=== PATIENT | male | born 1950 | race Caucasian/White ===

== ENCOUNTER 2017-10-31 10:07 | Inpatient (IN) | payer MEDICARE ==
[~2017-10-31] VITALS: Ht 172.7 cm; Wt 95.0 kg
[~2017-10-31 10:07] MED LIST: ANEXSIA 5-3251 EACH PO; GLYBURIDE PO; IRON PO; Lantus SQ; NOVOLOG MI100 UNITS/ SQ; WARFARIN SODIUM5 MG PO; Z FEOSOL PO; Z.0.AMLODIPINE BESY1 PO; Z.0.CLOPIDOGREL75 MG PO; Z.0.COUMADIN7.5 MG PO; Z.0.KLOR-CON 1010 ME PO; Z.0.LASIX80 MG PO; Z.0.LIPITOR40 MG PO; Z.0.METOPROLOL SUCC5 PO; Z.0.PROTONIX40 MG PO; Z.0.SEPTRA DS TABL1 PO; [UNRECOGNIZED DRUG - OTHER] PO; lantus SQ
--- OUTSIDE RECORDS SUMMARY | 2017-10-31 10:12 | XMS REPORT ---
Author Author [facility] Address Unknown Phone Unavailable Care Team Providers Care [employer] Operator Name Role Phone Akil RYDER Unavailable Unavailable Problems This patient has no known problems. Allergies, Adverse Reactions, Alerts This patient has no known allergies or adverse reactions. Medications This patient has no known medications. Results Test Description Test Time Test Comments Text Results Atomic Results Result Comments TAGGED WBC [facility] [address] [address] Patient Name: DMAEON FAYE MR #: [id number] : 1950 Age/Sex: 67/M Req #: [id number] Adm Physician: Ordered by: Akil RYDER DP Report #: [id number] Location: PR Room/Bed: Procedure: [id number] NM/TAGGED WBC Exam Date: 05/23/17 Exam Time: 0800 REPORT STATUS: Signed Labeled WBC Study Reason for exam: 67 F with IDDM and two poorly healing wounds at great toes. Evaluate for osteomyelitis. Comparison: None available Report: The patient's own white blood cells were labeled with Tc-99m HMPAO 22 mCi by a commercial radiopharmacy. Images of the feet were obtained at 3 hours post administration of the labeled white blood cells. Superficial focal areas of increased tracer activity are seen. One is at the plantar aspect at the base of the right great toe and the other is at the plantar aspect of the left great toe. No focal accumulation of tracer is seen in the adjacent bones or elsewhere within the feet. IMPRESSION:. No scan evidence of osteomyelitis in either foot. Superficial soft tissue wounds on the plantar aspect of the right and left great toes. Signed by: Dr. Raman Hare M.D. on 05/23/2017 8:59 PM Dictated By: RAMAN HARE MD 56 Transcribed By: PRECIOUS on 05/23/172058 COPY TO: Akil RYDER DPM
--- OUTSIDE RECORDS SUMMARY | 2017-10-31 10:12 | XMS REPORT | Clinical Summary ---
Author Author [facility] Organization [facility] Address Unknown Phone Unavailable Care Team Providers Care Glaze Maker Name Role Phone Dameon Purvis MD PCP Allergies Active Allergy Reactions Severity Noted Date Comments Vance Inhibitors Other (See Comments) 07/12/2017 "gets jittery/tremors." Patient takes lisinopril. Lorazepam Other (See Comments) 07/12/2017 "it makes him crazy" Benazepril Anaphylaxis High 07/12/2017 Promethazine Anxiety Low 07/12/2017 Sulfa (Sulfonamide Medium 05/24/2016 Drug interaction with Antibiotics) warfarin (increased bleeding) Current Medications Prescription Sig. Disp. Refills Start End Date Status Date atorvastatin (LIPITOR) 40 Take 40 mg by mouth Active MG tablet nightly. aspirin (ECOTRIN) 81 MG Take 81 mg by mouth Active enteric coated tablet nightly. omeprazole (PriLOSEC) 40 Take 40 mg by mouth Active MG capsule daily. potassium chloride Take 10 mEq by mouth 2 Active (K-DUR,KLOR-CON) 10 MEQ (two) times a day. CR tablet clopidogrel (PLAVIX) 75 Take 75 mg by mouth Active mg tablet daily. ferrous sulfate 325 (65 Take 325 mg by mouth 2 Active FE) MG tablet (two) times a day. isosorbide mononitrate Take 30 mg by mouth Active (IMDUR) 30 MG 24 hr daily. tablet nitroglycerin (NITROSTAT) Place 0.4 mg under the Active 0.4 MG SL tablet tongue every 5 (five) minutes as needed for chest pain. levothyroxine (SYNTHROID, Take 112.5 mcg by mouth Active LEVOXYL) 75 mcg tablet every morning. diazePAM (VALIUM) 5 MG Take by mouth nightly as Active tablet needed for anxiety. metoprolol succinate XL Take 25 mg by mouth Active (TOPROL-XL) 25 mg 24 hr daily. tablet digOXIN (LANOXIN) 125 mcg Take 125 mcg by mouth Active tablet daily. blood sugar diagnostic Use as directed 100 strip 2 09/28/19 Active strips strip test strips 18 metOLazone (ZAROXOLYN) Take 2.5 mg by mouth Active 2.5 MG tablet daily as needed (for edema and fluid retention). insulin GLARGINE (LANTUS) Inject 42 Units under the 12.6 mL 0 11/21/19 Active 100 unit/mL injection skin daily before 18 18 (vial) breakfast for 30 days. insulin lispro (HumaLOG) Inject 14 Units under the 10 mL 12 10/21/19 11/20/19 Active 100 unit/mL injection skin 3 (three) times a 18 18 day with meals for 30 days. insulin lispro (HumaLOG) Inject 0-7 Units under 10 mL 12 10/21/19 Active 100 unit/mL injection the skin 3 (three) times 18 18 a day with meals for 30 days. warfarin (COUMADIN) 5 MG Take 2 tablets (10 mg 30 tablet 11 10/21/19 Active tablet total) by mouth daily. 18 Take 1 tablet (5mg) by mouth daily for 30 days. lancets misc Use as directed 200 each 2 10/21/19 Active 18 pen needle, diabetic (BD Use as directed 100 each 10/21/19 Active ULTRA-FINE MICRO PEN 18 NEEDLE) 32 gauge x 1/4" needle liraglutide (VICTOZA) 0.6 Inject 0.1 mL (0.6 mg 3 mL 0 10/22/19 Active mg/0.1 mL (18 mg/3 mL) total) under the skin 18 18 pen injector daily with breakfast for 30 days. insulin GLARGINE (LANTUS Inject 42 Units under the 1260 Units 3 11/20/19 Active SOLOSTAR) 100 unit/mL skin nightly for 30 days. 18 18 injection (pen) insulin lispro (HumaLOG Inject 14 Units under the 15 mL 3 10/21/19 11/20/19 Active KwikPen Insulin) 100 skin 3 (three) times a 18 18 unit/mL injection pen day before meals for 30 days. furosemide (LASIX) 20 MG Take 60 mg by mouth 2 07/05/20 Discontin tablet (two) times a day. 17 ued insulin asp prt-insulin Inject 26 Units under the 03/07/20 Discontin ASPART (NovoLOG Mix skin every morning. 17 ued 70-30) 100 unit/mL (70-30) injection insulin asp prt-insulin Inject 32 Units under the 03/07/20 Discontin ASPART (NovoLOG Mix skin nightly. 17 ued 70-30) 100 unit/mL (70-30) injection lisinopril Take 5 mg by mouth daily. 07/05/20 Discontin (PRINIVIL,ZESTRIL) 5 MG 17 ued tablet metFORMIN (GLUCOPHAGE) Take 500 mg by mouth 2 06/30/20 Discontin 500 MG tablet (two) times a day with 17 ued meals. metoprolol succinate XL Take 25 mg by mouth 06/30/20 Discontin (TOPROL-XL) 25 MG 24 hr daily. 17 ued tablet warfarin (COUMADIN) 10 MG Take 7.5 mg by mouth 3 03/07/20 Discontin tablet (three) times a week. 17 ued Tuesday, Tuesday, & Tuesday warfarin (COUMADIN) 5 MG Take 5 mg by mouth 4 09/28/19 Discontin tablet (four) times a week. (on 18 ued Tuesday, Tuesday, & Tuesday) MORNINGs isosorbide mononitrate Take 1 tablet (30 mg 30 tablet 0 02/02/2010/18 (IMDUR) 30 MG 24 hr total) by mouth daily for 17 17 tablet 30 days. nitroglycerin (NITROSTAT) Place 1 tablet (0.4 mg 90 tablet 12 03/03/20 0.4 MG SL tablet total) under the tongue 17 17 every 5 (five) minutes as needed for chest pain for up to 30 days. insulin lispro (HumaLOG) Inject 36 Units under the 09/28/19 Discontin 100 unit/mL injection skin daily before 18 ued breakfast. insulin lispro (HumaLOG) Inject 24 Units under the 09/28/19 Discontin 100 unit/mL injection skin daily with dinner. 18 ued warfarin (COUMADIN) 5 MG Take 7.5 mg by mouth 3 09/28/19 Discontin tablet (three) times a week. (on 18 ued Tuesday, Tuesday, Tuesday) MORNINGs furosemide (LASIX) 20 mg Take 3 tablets (60 mg 90 tablet 0 06/12/20 06/30/20 Discontin tablet total) by mouth daily for 17 17 ued 30 days. liothyronine (CYTOMEL) 5 Take 5 mcg by mouth 2 09/28/19 Discontin MCG tablet (two) times a day. 18 ued metOLazone (ZAROXOLYN) 5 Take 5 mg by mouth daily 07/12/20 Discontin MG tablet as needed (fluid 17 ued overload). metroNIDAZOLE (FLAGYL) Take 250 mg by mouth 3 06/27/20 07/15/20 Discontin 250 MG tablet (three) times a day. For 17 17 ued 14 days starting 06/28/17-07/12/17 (CAN INCREASE INR) metFORMIN (GLUCOPHAGE) Take 500 mg by mouth 2 07/15/20 Discontin 1,000 mg tablet (two) times a day with 17 ued meals. metoprolol succinate XL Take 25 mg by mouth 07/05/20 Discontin (TOPROL-XL) 50 mg 24 hr daily. 17 ued tablet metoprolol tartrate Take 0.5 tablets (12.5 mg 30 tablet 0 07/05/20 07/12/20 Discontin (LOPRESSOR) 25 mg tablet total) by mouth 2 (two) 17 17 ued times a day for 30 days. furosemide (LASIX) 40 mg Take 1 tablet (40 mg 60 tablet 0 07/05/20 07/12/20 Discontin tablet total) by mouth 2 (two) 17 17 ued times a day for 30 days. furosemide (LASIX) 40 mg Take 40 mg by mouth 2 07/15/20 Discontin tablet (two) times a day. 17 ued metoprolol tartrate Take 12.5 mg by mouth 2 08/26/19 Discontin (LOPRESSOR) 25 mg tablet (two) times a day. 18 ued lisinopril Take 5 mg by mouth daily. 08/19/19 Discontin (PRINIVIL,ZESTRIL) 5 mg 18 ued tablet metroNIDAZOLE (FLAGYL) Take 1 tablet (250 mg 45 tablet 0 07/15/20 250 MG tablet total) by mouth 3 (three) 17 17 times a day for 15 days. For 14 days starting 06/28/17-07/12/17 (CAN INCREASE INR) torsemide (DEMADEX) 20 MG Take 2 tablets (40 mg 60 tablet 2 07/16/20 08/15/19 Discontin tablet total) by mouth daily for 17 18 ued 30 days. metOLazone (ZAROXOLYN) 5 Take 1 tablet (5 mg 30 tablet 0 07/15/20 Discontin MG tablet total) by mouth daily as 17 18 ued needed (fluid overload) for up to 30 days. metOLazone (ZAROXOLYN) 5 Take 5 mg by mouth daily 09/28/19 Discontin MG tablet as needed (fluid 18 ued overload). torsemide (DEMADEX) 20 MG Take 40 mg by mouth 08/19/19 Discontin tablet daily. 18 ued digOXIN (LANOXIN) 125 mcg Take 1 tablet (125 mcg 30 tablet 0 08/19/19 09/15/19 Discontin tablet total) by mouth daily for 18 18 ued 30 days. furosemide (LASIX) 20 mg Take 3 tablets (60 mg 180 tablet 0 08/19/19 09/15/19 Discontin tablet total) by mouth 2 (two) 18 18 ued times a day for 30 days. metoprolol succinate XL Take 1 tablet (25 mg 30 tablet 1 08/26/19 Discontin (TOPROL-XL) 25 mg 24 hr total) by mouth daily for 18 18 ued tablet 30 doses. linezolid (ZYVOX) 600 mg Take 600 mg by mouth 2 09/28/19 Discontin tablet (two) times a day. For 30 18 ued days starting 09/02/17 furosemide (LASIX) 20 mg Take 60 mg by mouth 2 09/28/19 Discontin tablet (two) times a day. 18 ued warfarin (COUMADIN) 6 MG Take 1 tablet (6 mg 30 tablet 0 09/28/19 Discontin tablet total) by mouth daily. 18 18 ued liraglutide (VICTOZA) 0.6 Inject 0.1 mL (0.6 mg 3 mL 0 09/30/19 mg/0.1 mL (18 mg/3 mL) total) under the skin 18 18 pen injector daily with breakfast for 30 days. enoxaparin (LOVENOX) 100 Inject 1 mL (100 mg 10 mL 0 09/28/19 mg/mL syringe total) under the skin 18 18 daily for 10 days. insulin GLARGINE (LANTUS) Inject 32 Units under the 9.6 mL 0 09/30/19 10/21/19 Discontin 100 unit/mL injection skin daily before 18 18 ued (vial) breakfast for 30 days. insulin lispro (HumaLOG) Inject 14 Units under the 10 mL 12 09/28/19 10/11/19 Discontin 100 unit/mL injection skin 3 (three) times a 18 18 ued day with meals for 30 days. furosemide (LASIX) 40 mg Take 1 tablet (40 mg 60 tablet 0 09/28/19 10/29/19 tablet total) by mouth 2 (two) 18 18 times a day for 30 days. ergocalciferol (VITAMIN Take 1 capsule (50,000 4 capsule 0 09/30/19 10/30/19 D2) 50,000 unit capsule Units total) by mouth 18 18 once a week for 30 days. pen needle, diabetic (BD Use as directed 100 each 2 09/28/19 Discontin ULTRA-FINE MICRO PEN 18 18 ued NEEDLE) 32 gauge x 1/4" needle lancets misc Use as directed 100 each 2 09/28/19 10/21/19 Discontin 18 18 ued insulin lispro (HumaLOG) Inject 38 Units under the 10/21/19 Discontin 100 unit/mL injection skin every morning. 18 ued insulin lispro (HumaLOG) Inject 30 Units under the 10/21/19 Discontin 100 unit/mL injection skin daily before dinner. 18 ued warfarin (COUMADIN) 5 MG Take 1 tablet (5mg) by 30 tablet 11 10/21/19 10/21/19 Discontin tablet mouth daily for 30 days. 18 18 ued Active Problems Problem Noted Date ACS (acute coronary syndrome) 10/10/2017 Chest pain 09/15/2017 Acute on chronic congestive heart failure 07/12/2017 Heart failure 07/01/2017 Hypervolemia 06/30/2017 PVD (peripheral vascular disease) 06/07/2017 Unstable angina 03/07/2017 NSTEMI (non-ST elevated myocardial infarction) 01/27/2017 AV block, 3rd degree 05/24/2016 Non-ST elevation [place] (NSTEMI) 05/24/2016 [place] (acute kidney injury) 05/24/2016 Heart burn 05/24/2016 Hyperglycemia 05/24/2016 Anemia in chronic illness 05/24/2016 Warfarin-induced coagulopathy 05/24/2016 s/p Syncope and collapse 05/23/2016 s/p Fall 05/23/2016 Hx of CABG x 2 09/24/2014 h/o Mechanical AVR 03/23/2012 Encounters Date Type Specialty Care Team Description 10/11/2017 Orders Only Procedural Cardiology Kwaku Garcia 10/10/2017 Hospital Cardiology Hubert Salazar MD ACS (acute coronary - Encounter Rj Oro MD syndrome) (Primary Dx); 10/20/2017 [place] (acute kidney injury); h/o Mechanical AVR; s/p Syncope and collapse; Heart burn; Hyperglycemia; Anemia in chronic illness; NSTEMI (non-ST elevated myocardial infarction); Unstable angina; PVD (peripheral vascular disease); Acute on chronic congestive heart failure, unspecified congestive heart failure type 09/26/2017 Procedure Pass Procedural Cardiology 09/26/2017 Surgery Procedural Cardiology Gucci Gramajo MD Cv selective coronary angiography [75864 (CPT )] 09/19/2017 Procedure Pass Procedural Cardiology 09/15/2017 [facility] Cardiology Marbin De León NSTEMI (non-ST elevated - Encounter MD Erick myocardial infarction) 09/28/2017 Francisco Borges MD (Primary Dx); Chest pain, unspecified type 09/13/2017 Documentation Transplant Cecilia Harris RN MRB documentation 09/08/2017 Hospital Transplant Justus Prasad MD Acute diastolic heart Encounter failure (Primary Dx); Acute on chronic combined systolic and diastolic congestive heart failure 09/08/2017 Hospital Transplant Justus Prasad MD Acute on chronic combined Encounter systolic and diastolic congestive heart failure 09/08/2017 Telephone Transplant Cecilia Harris RN Abnormal Lab 09/07/2017 Transcribe Transplant [place] Acute on chronic combined Orders systolic and diastolic congestive heart failure (Primary Dx) 09/07/2017 Documentation Transplant Carola Ventura RN Inpatient to Outpatient Hand-Off 09/07/2017 Transcribe Transplant Carola Ventura RN Chronic combined systolic Orders and diastolic heart failure (Primary Dx); Coronary artery disease involving [place] heart with angina pectoris, unspecified vessel or lesion type 09/05/2017 Documentation Transplant Carola Ventura RN Transplant Info Update 08/31/2017 [facility] Pulmonology Cami Han MD Chronic combined systolic Encounter and diastolic congestive heart failure 08/30/2017 Hospital Transplant Yves Montana MD Chronic atrial Encounter fibrillation 08/30/2017 Telephone Transplant Varsha Orellana [place] - PFT's , MVO2 08/26/2017 Orders Only Cardiology Dudley Gage RN Chronic atrial fibrillation (Primary Dx) 08/26/2017 Telephone Cardiology Dudley Gage RN Appointment; Follow-up (Labs) 08/25/2017 Office Visit Cardiology Barb Veloz NP Ischemic cardiomyopathy (Primary Dx) 08/25/2017 Hospital Transplant Juaquin Purvis MD Acute on chronic combined Encounter systolic and diastolic heart failure 08/25/2017 Telephone Transplant Marcia Martell MA Running late to appt 08/23/2017 Orders Only Cardiology Dudley Gage RN Acute on chronic combined systolic and diastolic heart failure (Primary Dx) 08/23/2017 Telephone Cardiology Dudley Gage RN Appointment 08/22/2017 Documentation Ervin Jackson 08/22/2017 Orders Only Transplant Cecilia Harris RN Chronic combined systolic and diastolic congestive heart failure (Primary Dx) 08/19/2017 Procedure Pass Procedural Cardiology 08/19/2017 Surgery Procedural Cardiology Gucci Gramajo MD Cv right heart cath [48566 (CPT )] 08/18/2017 Telephone Transplant Truong Chung RN Referral - Heart Txp 08/15/2017 [facility] Cardiology Ailyn Fernandez MD Acute on chronic - Encounter Orville Steele MD congestive heart failure, 08/19/2017 unspecified congestive heart failure type (Primary Dx); Hypervolemia, unspecified hypervolemia type; AV block, 3rd degree; Non-ST elevation [place] (NSTEMI); [place] (acute kidney injury); Hx of CABG x 2; h/o Mechanical AVR; s/p Syncope and collapse; Fall, initial encounter; Heart burn; Hyperglycemia; Anemia in chronic illness; Warfarin-induced coagulopathy 07/11/2017 Hospital Cardiology Luz OroAngelina Alfaro MD Acute on chronic - Encounter Angelina Oro MD congestive heart failure, 07/15/2017 unspecified congestive heart failure type (Primary Dx); JOLLEY (dyspnea on exertion); Chronic kidney disease, unspecified CKD stage; Acute diastolic heart failure 06/30/2017 Hospital Cardiology Fuad Macdonald MD Hypervolemia, unspecified - Encounter Keysha Oro MD hypervolemia type 07/05/2017 (Primary Dx); Chest pain, unspecified type; Chronic renal impairment, unspecified CKD stage 06/07/2017 Hospital Neurology Gucci Gramajo MD PVD (peripheral vascular - Encounter disease) 06/12/2017 06/07/2017 Procedure Pass Procedural Cardiology 06/07/2017 Surgery Procedural Cardiology Gucci Gramajo MD Cv arteriograms peripheral [[id number] (CPT )] 03/07/2017 Emergency Cardiology uFad Macdonald MD Unstable angina (Primary - Selvin Cheatham MD Dx) 03/09/2017 01/31/2017 Procedure Pass Procedural Cardiology 01/31/2017 Surgery Procedural Cardiology Gucci Gramajo MD Cv selective angiography bypass graft [80310 (CPT )] 01/27/2017 Hospital Cardiology Scooter Damon, NSTEMI (non- ST elevated - Encounter DO myocardial infarction) 02/01/2017 Orville Steele MD (Primary Dx); Syncope, cardiogenic; Chronic renal failure syndrome, stage 2 (mild) after 10/30/2016 Family History Medical History Relation Name Comments Heart disease Mother Stroke Mother Relation Name Status Comments Mother Social History Tobacco Use Types Packs/Day Years Used Date Never Smoker Smokeless Tobacco: Never Used Tobacco Cessation: Counseling Given: No Alcohol Use Drinks/Week oz/Week Comments No Sex Assigned at Date Recorded Not on file Last Filed Vital Signs Vital Sign Reading Time Taken Blood Pressure 151/67 10/20/2017 7:53 AM CDT Pulse 72 10/20/2017 7:53 AM CDT Temperature 36.4 C (97.5 F) 10/20/2017 7:53 AM CDT Respiratory Rate 18 10/20/2017 7:53 AM CDT Oxygen Saturation 95% 10/20/2017 7:53 AM CDT Inhaled Oxygen - - Concentration Weight 95 kg (209 lb 8 oz) 10/19/2017 5:47 AM CDT Height 160 cm (5' 3") 10/12/2017 11:12 AM CDT Body Mass Index 37.11 10/19/2017 5:47 AM CDT Plan of Treatment Health Maintenance Due Date Last Done Comments FOOT EXAM 01/18/1958 OPHTHALMOLOGY EXAM 01/18/1958 COLONOSCOPY 01/18/1998 ZOSTER VACCINE 2008 PNEUMOCOCCAL 01/18/2013 POLYSACCHARIDE VACCINE AGE 65 AND OVER PNEUMOCOCCAL-13 01/18/2013 INFLUENZA VACCINE 03/01/2017 Implants Implanted Type Area Grinder And Plater Device Expiration Model / Identifier Date Serial / Lot 88cm Attain Ability Otw Lead, Model Cardiac N/A: N/A [employer] [facility] [id number] / [id number], Dual-Electrode Left Pacing [employer] [id number] Ventricular - [id number] Leads or / Implanted: 05/28/2016 (Quantity not Electrodes [id number] on file) or Holly s Stent Cor Resolute Integrity Coronary N/A: N/A [employer] [facility] - 2016 [id number] Ztrlims-Eltng Otw 3.5x30mm - Stents VASCULAR W / [id number] / Implanted: 05/24/2016 (Quantity not [id number] on file) Stent Coronary Bare Metal Rebel Otw Coronary N/A: N/A [facility] [place] 12/29/2017 [id number] 4.50 Mm X 12 Mm - [id number] Stents INTERVENTIONAL [id number] / Implanted: 01/31/2017 (Quantity not CARDIOLOGY / on file) [id number] Stent System 4.0 X 08mm Resolute Coronary N/A: N/A [employer] [facility] - [id number] [place] Otw Coronary - [id number] - Stents CARDIAC RYHTYM W / [id number] Implanted: Qty: 1 on 09/26/2017 by David / Gucci Gramajo MD [id number] Ltrevia Hf-T Df-4 High Energy W1th IPM N/A: N/A [employer] [id number] / Cls W1th Tl With Home CARDIAC [id number] / Monitoring&174; - [id number] DEFIB [id number] Implanted: 05/28/2016 (Quantity not on file) Sheath Attain Command Surevalve Lv IPM N/A: N/A [employer] CRM [id number] / - [id number] [employer] / Implanted: 05/28/2016 (Quantity not DEVICES on file) [id number] Attain Select Ii Catheters - IPM N/A: N/A [employer] CRM [id number] 90P [id number] [employer] / Implanted: 05/28/2016 (Quantity not DEVICES / on file) Protego S 60 - [id number] - IPM N/A: N/A [employer] 12/29/2017 [id number] / [id number] IMPLANT [id number] / Implanted: Qty: 1 on 05/28/2016 by DEVICES [id number] Dre Salmeron MD Catheter [id number] 6f 100cm [id number] IPM N/A: N/A [employer] [id number] / - [id number] IMPLANT CARDIOVASCULAR / Implanted: 09/26/2017 (Quantity not DEVICES on file) Safesheath2 - [id number] IPM N/A: N/A [employer] CRM [id number] / Implanted: 05/28/2016 (Quantity not [employer] / on file) PATIENT BILLABLE Pacemaker Pacemaker Procedures Procedure Name Priority Date/Time Associated Diagnosis Comments CV STRESS TEST NUCLEAR Routine 10/12/2017 Results for this CARDIO 12:25 PM CDT procedure are in the results section. ECHOCARDIOGRAM 2D Routine 10/11/2017 Results for this COMPLETE W MMODE SPECTRAL 9:17 AM CDT procedure are in the COLOR DOPPLER (12524) results section. CV PCI STENT Routine 09/26/2017 Results for this 9:38 AM BASEBALL COACH procedure are in the results section. CV SELECTIVE ANGIOGRAPHY Routine 09/26/2017 Results for this BYPASS GRAFT 9:38 AM BASEBALL COACH procedure are in the results section. CV SELECTIVE CORONARY Routine 09/26/2017 Results for this ANGIOGRAPHY 9:38 AM BASEBALL COACH procedure are in the results section. SD CRITICAL CARE, ADDL 30 Routine 09/15/2017 Results for this MIN 7:19 AM BASEBALL COACH procedure are in the results section. SD CRITICAL CARE, E/M Routine 09/15/2017 Results for this 30-74 MINUTES 7:19 AM BASEBALL COACH procedure are in the results section. CV RIGHT HEART CATH Routine 08/19/2017 Results for this 9:19 AM BASEBALL COACH procedure are in the results section. ECHOCARDIOGRAM 2D Routine 08/16/2017 Results for this COMPLETE W MMODE SPECTRAL 10:02 AM BASEBALL COACH procedure are in the COLOR DOPPLER (77044) results section. EEG CONTINUOUS WITH VIDEO STAT 06/10/2017 Results for this REDUCED SERVICE 11:26 AM BASEBALL COACH procedure are in the results section. EEG VIDEO MONITORING STAT 06/10/2017 Results for this 8:57 AM BASEBALL COACH procedure are in the results section. ECHOCARDIOGRAM 2D Routine 06/09/2017 Results for this COMPLETE W MMODE SPECTRAL 4:14 PM BASEBALL COACH procedure are in the COLOR DOPPLER (26989) results section. EEG AWAKE/DROWSY LESS STAT 06/09/2017 Results for this THAN 41 MIN 10:41 AM BASEBALL COACH procedure are in the results section. CV DEFIBRILLATOR Routine 06/09/2017 PROGRAMMING ML 8:24 AM BASEBALL COACH CV STRESS TEST NUCLEAR Routine 03/08/2017 Results for this CARDIO 3:15 PM CDT procedure are in the results section. CV SELECTIVE CORONARY Routine 01/31/2017 Results for this ANGIOGRAPHY 11:00 AM CDT procedure are in the results section. CV PCI Routine 01/31/2017 Results for this 11:00 AM CDT procedure are in the results section. CV SELECTIVE ANGIOGRAPHY Routine 01/31/2017 Results for this BYPASS GRAFT 11:00 AM CDT procedure are in the results section. SD CRITICAL CARE, E/M Routine 01/28/2017 Results for this 30-74 MINUTES 5:17 AM CDT procedure are in the results section. after 10/30/2016 Results * POC glucose (10/20/2017 7:56 AM) Only the most recent of 242 results within the time period is included. Component Value Ref Range POC glucose 120 (H) 65 - 99 mg/dL Comment: [facility] Notified RN Meter ID: [id number] Acid Purifier: Praneeth Larry Specimen Performing Laboratory [facility] DEPARTMENT OF PATHOLOGY AND GENOMIC MEDICINE [address] [place] [id number] * Estimated GFR (10/20/2017 4:29 AM) Only the most recent of 54 results within the time period is included. Component Value Ref Range GFR Non Af Amer 40 (A) mL/min/1.73 m2 GFR Af Amer 49 (A) mL/min/1.73 m2 Comment: Chronic kidney disease: <60 mL/min/1.73m2 Kidney failure: <15 mL/min/1.73m2 The estimated GFR is calculated from the IDMS-traceable Modification of Diet in Renal Disease Equation. The accuracy of the calculation is poor when the creatinine is normal. Calculated values >90 mL/min/1.73m2 are not reported. This equation has not been validated in children (<18 years), women, the elderly (>70 years), or ethnic groups other than Caucasians and Americans. Specimen Performing Laboratory Plasma specimen [facility] DEPARTMENT OF PATHOLOGY AND GENOMIC MEDICINE [address] [place] [id number] * Prothrombin time with INR (10/20/2017 4:29 AM) Only the most recent of 51 results within the time period is included. Component Value Ref Range Prothrombin time 23.8 (H) 12.0 - 15.0 sec INR 2.1 Comment: The International Normalized Ratio (INR) is a therapeutic monitoring tool for patients who are stable on oral anticoagulant therapy. An INR of 2.0-3.0 is suggested for deep vein thrombosis/pulmonary embolism. Specimen Performing Laboratory Blood [facility] DEPARTMENT OF PATHOLOGY AND [facility] MEDICINE [address] [place] [id number] * Anti Xa, unfractionated (10/20/2017 4:29 AM) Only the most recent of 33 results within the time period is included. Component Value Ref Range Anti Xa, unfractionated 0.66Comment: Therapeutic Range: 0.30 - 0.70 U/mL 0.30 - 0.70 U/mL Specimen Performing Laboratory Blood [facility] DEPARTMENT OF PATHOLOGY AND [facility] MEDICINE [address] [place] [id number] * CBC with platelet and differential (10/20/2017 4:29 AM) Only the most recent of 47 results within the time period is included. Component Value Ref Range WBC 8.33 4.50 - 11.00 k/uL RBC 3.31 (L) 4.40 - 6.00 m/uL HGB 10.9 (L) 14.0 - 18.0 g/dL HCT 34.1 (L) 41.0 - 51.0 % MCV 103.0 (H) 82.0 - 100.0 fL MCH 32.9 27.0 - 34.0 pg MCHC 32.0 31.0 - 37.0 g/dL RDW - SD 67.7 (H) 37.0 - 55.0 fL MPV 12.0 8.8 - 13.2 fL Platelet count 175 150 - 400 k/uL Nucleated RBC 0.00 /100 WBC Neutrophils 60.8 39.0 - 69.0 % Lymphocytes 20.2 (L) 25.0 - 45.0 % Monocytes 14.9 (H) 0.0 - 10.0 % Eosinophils 3.1 0.0 - 5.0 % Basophils 0.6 0.0 - 1.0 % Immature granulocytes 0.4Comment: "Immature granulocytes" 0.0 - 1.0 % (promyelocytes, myelocytes, metamyelocytes) Specimen Performing Laboratory Blood [facility] DEPARTMENT OF PATHOLOGY AND [facility] [facility] [address] [place] [id number] * Basic metabolic panel (10/20/2017 4:29 AM) Only the most recent of 43 results within the time period is included. Component Value Ref Range Sodium 136 135 - 148 mEq/L Potassium 4.0 3.5 - 5.0 mEq/L Chloride 95 (L) 98 - 112 mEq/L CO2 27 24 - 31 mEq/L Anion gap 14 7 - 15 mEq/L Comment: Starting from October , anion gap calculation no longer incorporates potassium. Please note the change. BUN 26 (H) 8 - 23 mg/dL Creatinine 1.7 (H) 0.7 - 1.2 mg/dL Glucose 106 (H) 65 - 99 mg/dL Calcium 9.9 8.8 - 10.2 mg/dL Specimen Performing Laboratory Plasma specimen [facility] DEPARTMENT OF PATHOLOGY AND [address] [address] * Magnesium level (10/17/2017 3:30 AM) Only the most recent of 21 results within the time period is included. Component Value Ref Range Magnesium 2.1 1.6 - 2.4 mg/dL Specimen Performing Laboratory Plasma specimen [facility] DEPARTMENT OF PATHOLOGY AND [facility] [address] [place] [id number] * Smear review (10/13/2017 5:39 AM) Only the most recent of 6 results within the time period is included. Component Value Ref Range Platelet slide review Michael slt decr Anisocytosis Moderate Polychromasia Moderate Ovalocytes Moderate Enlarged platelets Moderate (A) Specimen Performing Laboratory [facility] DEPARTMENT OF PATHOLOGY AND [facility] [address] [place] [address] * B natriuretic peptide (10/13/2017 5:39 AM) Only the most recent of 18 results within the time period is included. Component Value Ref Range BNP 1,794 (H) 0 - 100 pg/mL Specimen Performing Laboratory Blood [facility] DEPARTMENT OF PATHOLOGY AND [facility] [address] [place] [address] * Occult blood, stool (10/12/2017 1:30 PM) Component Value Ref Range Occult blood, stool Negative for occult blood. Comment: Specimen Information Specimen Source: Stool Specimen Site: Nonpreserved Specimen Performing Laboratory Stool - Nonpreserved [facility] OF PATHOLOGY AND [facility] [address] [place] [address] * CV stress test (10/12/2017 12:25 PM) Component Value Ref Range Resting HR 80 Resting BP 165 Peak MET Achieved 1.0 Protocol Name REGADENO Time in Exercise Phase 00:01:00 Max Systolic BP 174 Max Diastolic BP 72 Max Heart Rate 88 Max Predicted Heart Rate 151 Target HR Formula (220 - Age)*100% Test Indication VIABILITY Arrhy During Ex ECG Interp Before EX ECG Interp During Ex Ex Summary Comment Overall HR Response to Exercise Overall BP Response To Exercise Reason for Termination Stress Test Impression -Waveform interpreted in report associated with image study. No interpretation is provided as part of this Stress ECG report.-Electronically Signed By Elpidio WYLIE, Bharat Braxton ([id number]), news videotape editor Chito Norman ([id number]) on 10/12/2017 1:41:28 PM Specimen Performing Laboratory [facility] MUSE [address] [place] [address] * Myocardial perfusion (10/12/2017 12:25 PM) Only the most recent of 2 results within the time period is included. Specimen Performing Laboratory [facility] [address] [place] [address] Narrative Nuclear Cardiology and Cardiac CT [address] [place] [address] Myocardial Perfusion Imaging Report Stress ECG tracings are available in [employer], [employer] and [employer] All ECG interpretations are included in this report Pat.Name:DAMEON FAYE Pat.ID:[id number] .Date: 10/12/2017 Refer.MD:RJ ORO MD Exam Time: 11:28:00 AM Study Type:Myocardial Perfusion Imaging Height:68inWeight:215lb BSA: 2.11 m2 DOBAge:[age]Y Sex: MALEBP: 165/70 HR:78 bpmHCT: 33.8 % Nuclear Tech:SINDI MckeonMT, ARRT/Kwasi Velarde [facility] Pat. Stat.:Inpatient Room:D 101 Nuclear Event ID: [id number] Order ID:[id number] Reason for Study:Cardiomyopathy, Thallium viability History / Clinical:Cardiomegaly/Cardiomyopathy, Coronary artery disease, Coronary artery stent, Coronary artery bypass surgery, Diabetes, Hyperlipidemia, Hypertension, Transient ischemic attack/CVA, Echo, 10/11/17, EF, 25-29% Procedures:Single Day Rest / Stress, Viability Race: Risk Factors:Diabetes, Cardiovascular Disease, Hyperlipidemia, Hypertension, TIA/Stroke, Obesity Clinical Symptoms:Regadenoson Physical Exam:S1, S2 Surgery: Troponin - 0.32 - 10/11/17, Troponin - 0.30 - x 2 - 10/10/17, K+ - 3.9 - 10/11/17 Medications:Aspirin, Digoxin, Insulin, Lasix, Plavix, Toprol, Zaroxyln, Kcl, Coumadin, Imdur, Synthroid SUMMARY: SCINTIGRAPHIC RESULTS Perfusion Defect Size (% LV) 32% Total 0% Yknidudb11% Scar Left Ventricular Perfusion Results There is a mild apical, apical-lateral, mid anterolateral, mid inferolateral, mid anterior perfusion defect during stress which remains unchanged with redistribution imaging. Gated SPECT Results The post stress left ventricular ejection fraction is 29% with akinesis of all hypoperfused segments and severe global hypokinesis. Left ventricular end-diastolic volume is 403 ml; end-systolic volume is288 ml.The left ventricle is severely enlarged at stress and rest.The right ventricle is enlarged with mild hypokinesis. Conclusion Abnormal regadenoson Tc-99m tetrofosmin/rest thallium-201 myocardial perfusion study compatible with scar in the left anterior descending, diagonal, and circumflex coronary artery vascular territories. The LVEF is severely depressed.The RVEF is mildly depressed. SevereLV and RV hypertrophy are present. SevereLV and RV dilation are present. Comments The study results indicate a very high annual risk for a cardiac or non-fatal myocardial infarction. Study Quality/Artifacts The study quality is good. Comparison to Previous Study None available. STRESS: Baseline Vital Signs:Intervention: Regadenoson 0.4mg /5ml IV over 10 seconds followed by radiotracer injection and 5ml saline flush ECG: Ventricular pacemaker, Ventricular premature depolarizations HR:78 BP:118/70 Stress Test Results: Target HR: 128 Symptoms and Complications: Arrhythmias: None Terminated: As per Regadenoson protocol Symptoms:Shortness of breath Complications: None Conclusions: Normal heart rate response to pharmacological stress, Normal blood pressure response to pharmacological stress Stress ECG Interp: No ischemic ST segment change occurred with stress. Signed 10/12/2017 02:49 PM Bharat Magallanes MD Procedure Note Interface, Radiology Results In - 10/12/2017 2:49 PM CDT Nuclear Cardiology and Cardiac CT [address] [place] [address] Myocardial Perfusion Imaging Report Stress ECG tracings are available in [employer], [employer] and [employer] All ECG interpretations are included in this report Pat.Name: DAMEON FAYE Pat.ID: [id number] .Date: 10/12/2017 Refer.MD: RJ ORO MD Exam Time: 11:28:00 AM Study Type:Myocardial Perfusion Imaging Height: 68in Weight: 215lb BSA: 2.11 m2 Age: 6 1950,67Y Sex: MALE BP: 165/70 HR: 78 bpm HCT: 33.8 % Nuclear Tech:BUNNY Mckeon, [facility] SCOTTSDALEPatria/BUNNY Harvey Pat. Stat.:Inpatient Room: [address] Nuclear Event ID:[id number] Order ID: [id number] Reason for Study:Cardiomyopathy, Thallium viability History / Clinical:Cardiomegaly/Cardiomyopathy, Coronary artery disease, Coronary artery stent, Coronary artery bypass surgery, Diabetes, Hyperlipidemia, Hypertension, Transient ischemic attack/CVA, Echo, 10/11/17, EF, 25-29% Procedures:Single Day Rest / Stress, Viability Race: Risk Factors:Diabetes, Cardiovascular Disease, Hyperlipidemia, Hypertension, TIA/Stroke, Obesity Clinical Symptoms:Regadenoson Physical Exam:S1, S2 Surgery: Troponin - 0.32 - 10/11/17, Troponin - 0.30 - x 2 - 10/10/17, K+ - 3.9 - 10/11/17 Medications:Aspirin, Digoxin, Insulin, Lasix, Plavix, Toprol, Zaroxyln, Kcl, Coumadin, Imdur, Synthroid SUMMARY: SCINTIGRAPHIC RESULTS Perfusion Defect Size (% LV) 32% Total 0% Ischemia 32% Scar Left Ventricular Perfusion Results There is a mild apical, apical-lateral, mid anterolateral, mid inferolateral, mid anterior perfusion defect during stress which remains unchanged with redistribution imaging. Gated SPECT Results The post stress left ventricular ejection fraction is 29% with akinesis of all hypoperfused segments and severe global hypokinesis. Left ventricular end-diastolic volume is 403 ml; end-systolic volume is 288 ml. The left ventricle is severely enlarged at stress and rest. The right ventricle is enlarged with mild hypokinesis. Conclusion Abnormal regadenoson Tc-99m tetrofosmin/rest thallium-201 myocardial perfusion study compatible with scar in the left anterior descending, diagonal, and circumflex coronary artery vascular territories. The LVEF is severely depressed. The RVEF is mildly depressed. Severe LV and RV hypertrophy are present. Severe LV and RV dilation are present. Comments The study results indicate a very high annual risk for a cardiac or non-fatal myocardial infarction. Study Quality/Artifacts The study quality is good. Comparison to Previous Study None available. STRESS: Baseline Vital Signs: Intervention: Regadenoson 0.4mg/5ml IV over 10 seconds followed by radiotracer injection and 5ml saline flush ECG: Ventricular pacemaker, Ventricular premature depolarizations HR: 78 BP: 118/70 Stress Test Results: Target HR: 128 Symptoms and Complications: Arrhythmias: None Terminated: As per Regadenoson protocol Symptoms: Shortness of breath Complications: None Conclusions: Normal heart rate response to pharmacological stress, Normal blood pressure response to pharmacological stress Stress ECG Interp: No ischemic ST segment change occurred with stress. Signed 10/12/2017 02:49 PM Bharat Magallanes MD * Comprehensive metabolic panel (10/12/2017 12:10 PM) Only the most recent of 10 results within the time period is included. Component Value Ref Range Sodium 137 135 - 148 mEq/L Potassium 4.7 3.5 - 5.0 mEq/L Chloride 97 (L) 98 - 112 mEq/L CO2 28 24 - 31 mEq/L Anion gap 12 7 - 15 mEq/L Comment: Starting from October , anion gap calculation no longer incorporates potassium. Please note the change. BUN 23 8 - 23 mg/dL Creatinine 1.7 (H) 0.7 - 1.2 mg/dL Glucose 367 (H) 65 - 99 mg/dL Calcium 9.2 8.8 - 10.2 mg/dL Protein 6.9 6.3 - 8.3 g/dL Comment: 4.6-7.0 g/dL 1 week 4.4-7.6 g/dL 7 months-1year 5.1-7.3 g/dL 1-2 years 5.6-7.5 g/dL >3 years 6.0-8.0 g/dL 18-150 6.3-8.3 g/dL Albumin 3.3 (L) 3.5 - 5.0 g/dL A/G ratio 0.9 0.7 - 3.8 Alkaline phosphatase 198 (H) 40 - 129 U/L AST 27 10 - 50 U/L ALT 19 5 - 50 U/L Total bilirubin 0.9 0.0 - 1.2 mg/dL Specimen Performing Laboratory Plasma specimen [facility] DEPARTMENT OF PATHOLOGY AND GENOMIC MEDICINE [address] [place] [address] * Echocardiogram complete w contrast and 3D if needed (10/11/2017 9:17 AM) Specimen Performing Laboratory [facility] [address] [place] [id number] Narrative Echocardiography Report [address] [address] Pat.Name:DAMEON FAYE Pat.ID:[id number] St.Date: 10/11/2017 Refer.MD:RJ ORO MD Exam Time: 8:36:00 AMStudy Type:Routine Echo Height:68inWeight:223lb BSA: 2.14 m2 DOBAge:1949,67Y Sex: MALEBP: 113/52 Sonogrphr: AURELIANO Wesley, ESTEFANI, PEPPER Gruber. Stat.:Inpatient Room:[facility] Study Status:Final Echo Event ID:[id number] Order ID:[id number] Reason for Study:HF; initial eval with symptoms History / Clinical:Chest pain, HYPERTENSION, HYPERLIPIDEMIA, DIABETES, Coronary Artery Disease, Shortness of Breath, Valvular Heart Disease; Aortic Stenosis, Edema, Obesity Procedures:2D Echo, Colorflow Doppler, Intravenous Definity Contrast Race:C SUMMARY: LV size is mnpcgkua-ou-urusxfym enlarged. LV EF is moderately to severely depressed. Estimated EF is 25-29%. RV systolic function is moderately depressed. Diastolic dysfunction Grade III (Severe): Impaired relaxation with restrictive LV filling pressures. Estimated PA systolic pressure is 69-74 mmHg, assuming a mean RAP of 15-20 mmHg. FINDINGS: LV: LV size is ymppmbre-mp-gcentivb enlarged. There is severe eccentricLV hypertrophy. LV EF is moderately to severely depressed.Global hypokinesis with akinetic inferolateral walland basal inferior wall. Estimated EF is 25-29%. RV: RV size is upper limits of normal. A pacemaker wire is seen inthe RV. RV systolic function is moderately depressed. RV wallmotion is moderately hypokinetic. LA: LA volume is moderately to severely enlarged. RA: RA volume is moderately enlarged. A pacemaker wire is seen. AO: Aortic root diameter is normal. ELISHA: No pericardial effusion. AV: Prosthetic aortic valve. A trace of aortic regurgitation. Normalprosthetic valve velocity and gradient. MV: Focal calcification of mitral leaflets. Moderate mitral annularcalcification. Thickened and/or calcified chordae. Atrace of mitral regurgitation. PV: No structural PV abnormalities noted. A trace of pulmonic regurgitation. TV: Dilated tricuspid annulus. Mild tricuspid regurgitation Aguirre: Diastolic dysfunction Grade III (Severe): Impaired relaxationwith restrictive LV filling pressures. Other:Estimated PA systolic pressure is 69-74 mmHg, assuming a meanRAP of 15-20 mmHg. MEASUREMENTS: 2D Parasternal Long [place] LVOT 1.9 cmLA Ds 4.2 cm LVIDd6.5 cmIndex 3.1 cm/m Ao An2 cm LVIDs5.3 cmAo Rtd 3.5 cm Index1.6 cm/m LV%fs 19.2 % LV Mzhd056.3 g(122-174) IVSd 1.2 cmLVM Index 149.6 g/m2 LVPWd1 cmRWT 0.3 LA Sng Plane LA Area 27.3 cm2(8.8-23.4) LA Vol99.9 ml Index46.7 ml/m LA LngAx 6.4 cm RA Sng Plane RA Area 25.7 cm2(8.3-19.5) RA Vol91.7 ml Index42.8 ml/m RA LngAx 6.4 cm DOPPLER AV For Flow/LEANDRA AV pkVel 257.3 cm/s (100-170) AV AC/ET 0.2 AV mnVel 179.4 cm/Yamile TVI 49.3 cm AV pkPG 26.5 mmHgAVpkAcRt 82785.5 cm/s2 AV Mean G 15.7 mmHgAV DeRt 935.8 cm/s2 AV AC 68 msec (83-118) AV Area0.9 cm2(3-5) AV ET275 msec LVOT For Flow LVOT Area2.8 cm2 LVOT SV 45.2 ml LVOTpkVel 75 cm/sHR 73.3 bpm LVOTpkPG 2.3 mmHgLVOT CO 3.3 l/min LVOTmnPG 1.2 mmHgLVOT CI 1.5 l/m/m2 LVOT TVI16 cm Signed 10/11/2017 12:00 PM Aníbal Hugo M.D. Procedure Note Interface, Radiology Results In - 10/11/2017 12:01 PM CDT Echocardiography Report [address] [place] [address] Pat.Name: DAMEON FAYE [facility].ID: [id number] .Date: 10/11/2017 Refer.MD: RJ ORO MD Exam Time: 8:36:00 AM Study Type:Routine Echo Height: 68in Weight: 223lb BSA: 2.14 m2 Age: 6 1950,67Y Sex: MALE BP: 113/52 Sonogrphr: Kaushik Engel, AURELIANO, RDRIOS, PEPPER Pat. Stat.:Inpatient Room: [facility] Study Status:Final Echo Event ID:[id number] Order ID: [id number] Reason for Study:HF; initial eval with symptoms History / Clinical:Chest pain, HYPERTENSION, HYPERLIPIDEMIA, DIABETES, Coronary Artery Disease, Shortness of Breath, Valvular Heart Disease; Aortic Stenosis, Edema, Obesity Procedures:2D Echo, Colorflow Doppler, Intravenous Definity Contrast Race: C SUMMARY: LV size is tjufrujd-hm-pedvkswi enlarged. LV EF is moderately to severely depressed. Estimated EF is 25-29%. RV systolic function is moderately depressed. Diastolic dysfunction Grade III (Severe): Impaired relaxation with restrictive LV filling pressures. Estimated PA systolic pressure is 69-74 mmHg, assuming a mean RAP of 15-20 mmHg. FINDINGS: LV: LV size is cqtrhzxl-sx-cphqguyd enlarged. There is severe eccentric LV hypertrophy. LV EF is moderately to severely depressed. Global hypokinesis with akinetic inferolateral wall and basal inferior wall. Estimated EF is 25-29%. RV: RV size is upper limits of normal. A pacemaker wire is seen in the RV. RV systolic function is moderately depressed. RV wall motion is moderately hypokinetic. LA: LA volume is moderately to severely enlarged. RA: RA volume is moderately enlarged. A pacemaker wire is seen. AO: Aortic root diameter is normal. ELISHA: No pericardial effusion. AV: Prosthetic aortic valve. A trace of aortic regurgitation. Normal prosthetic valve velocity and gradient. MV: Focal calcification of mitral leaflets. Moderate mitral annular calcification. Thickened and/or calcified chordae. A trace of mitral regurgitation. PV: No structural PV abnormalities noted. A trace of pulmonic regurgitation. TV: Dilated tricuspid annulus. Mild tricuspid regurgitation Aguirre: Diastolic dysfunction Grade III (Severe): Impaired relaxation with restrictive LV filling pressures. Other: Estimated PA systolic pressure is 69-74 mmHg, assuming a mean RAP of 15-20 mmHg. MEASUREMENTS: 2D Parasternal Long [place] LVOT 1.9 cm LA Ds 4.2 cm LVIDd 6.5 cm Index 3.1 cm/m Ao An 2 cm LVIDs 5.3 cm Ao Rtd 3.5 cm Index 1.6 cm/m LV%fs 19.2 % LV Mass 320.3 g (122-174) IVSd 1.2 cm LVM Index 149.6 g/m2 LVPWd 1 cm RWT 0.3 LA Sng Plane LA Area 27.3 cm2 (8.8-23.4) LA Vol 99.9 ml Index 46.7 ml/m LA LngAx 6.4 cm RA Sng Plane RA Area 25.7 cm2 (8.3-19.5) RA Vol 91.7 ml Index 42.8 ml/m RA LngAx 6.4 cm DOPPLER AV For Flow/LEANDRA AV pkVel 257.3 cm/s (100-170) AV AC/ET 0.2 AV mnVel 179.4 cm/s AV TVI 49.3 cm AV pkPG 26.5 mmHg AVpkAcRt 83175.5 cm/s2 AV Mean G 15.7 mmHg AV DeRt 935.8 cm/s2 AV AC 68 msec (83-118) AV Area 0.9 cm2 (3-5) AV ET 275 msec LVOT For Flow LVOT Area 2.8 cm2 LVOT SV 45.2 ml LVOTpkVel 75 cm/s HR 73.3 bpm LVOTpkPG 2.3 mmHg LVOT CO 3.3 l/min LVOTmnPG 1.2 mmHg LVOT CI 1.5 l/m/m2 LVOT TVI 16 cm Signed 10/11/2017 12:00 PM Aníbal Hugo M.D. * Thyroid stimulating hormone (10/11/2017 5:50 AM) Only the most recent of 3 results within the time period is included. Component Value Ref Range TSH 2.29 0.27 - 4.20 uIU/mL Specimen Performing Laboratory Plasma specimen [facility] DEPARTMENT OF PATHOLOGY AND GENOMIC MEDICINE [address] [place] [address] * Hemoglobin A1c (10/11/2017 5:50 AM) Only the most recent of 5 results within the time period is included. Component Value Ref Range Hemoglobin A1C 9.5 (H) 4.0 - 5.6 % Comment: HbA1c cutoffs for diagnosing diabetes: 4.0% - 5.6%=normal 5.7% - 6.4%=increased risk for diabetes (prediabetes) >=6.5%=diabetes Goals for glycemic control (ADA 2016) < 7.0% Target for non adults with diabetes. More or less stringent targets may be appropriate for individual patients. <7.5% Target for Children and adolescents with type 1 diabetes. Specimen Performing Laboratory Blood [facility] DEPARTMENT OF PATHOLOGY AND [facility] [address] [place] [id number] * Digoxin level (10/11/2017 5:50 AM) Only the most recent of 4 results within the time period is included. Component Value Ref Range Digoxin <0.3 (L) 0.8 - 2.0 ng/mL Comment: For valid Digoxin results, at least 6 hours should elapse between time of last dose and collection of blood. Otherwise, result may be false high. Therapeutic Range: 0.8 - 2.0 ng/mL Specimen Performing Laboratory Plasma specimen [facility] OF PATHOLOGY AND [facility] [address] [place] [id number] * Lipid panel (10/11/2017 5:50 AM) Only the most recent of 5 results within the time period is included. Component Value Ref Range Cholesterol 118 <200 mg/dL Triglycerides 44 <150 mg/dL HDL cholesterol 51 >40 mg/dL LDL cholesterol 62Comment: Result obtained by direct LDL <100 mg/dL measurement Lipid panel SeeBelow interpretation Comment: Total Cholesterol (mg/dL) <200 Desirable 200-239 Borderline-high >=240 High Triglycerides (mg/dL) <150 Normal 150-199 Borderline-high 200-499 High >=500 Very high HDL Cholesterol (mg/dL) <40 Low (male) <40 Low (female) LDL Cholesterol (mg/dL) <100 Optimal 100-129 Near or above optimal 130-159 Borderline-high 160-189 High >=190 Very high Risk Catergories that modify LDL goals. Risk Catergories LDL goal (mg/dL) CHD and CHD risk equivalent <100 (10-year risk >20%) Multiple (2+) risk factors <130 (10-year risk=<20%) 0-1 risk factors <160 (<10-year risk) Defining levels of lipids in metabolic syndrome Triglycerides >=150 mg/dL HDL Cholesterol Men <40 mg/dL Women <40 mg/dL Non-HDL cholesterol is a second target for therapy in persons with high triglycerides (>=200 mg/dL) Specimen Performing Laboratory Plasma specimen [facility] DEPARTMENT OF PATHOLOGY AND GENOMIC MEDICINE [address] [place] [id number] * Troponin (10/10/2017 8:38 PM) Only the most recent of 24 results within the time period is included. Component Value Ref Range Troponin <0.30 0.00 - 0.30 ng/mL Comment: 0.30 - 1.49 ng/ml May indicate increased risk of acute coronary syndrome. >=1.5 ng/ml Consistent with acute myocardial infarction. The diagnostic value of a single normal or non-diagnostic result is questionable. Serial samples at 2-6 hour intervals are required to rule out acute myocardial injury. Specimen Performing Laboratory Plasma specimen [facility] DEPARTMENT OF PATHOLOGY AND GENOMIC MEDICINE [address] [place] [id number] * Urinalysis screen and microscopy, with reflex to culture (10/10/2017 5:28 PM) Only the most recent of 4 results within the time period is included. Component Value Ref Range Specimen site Midstream Color, UA Straw Appearance, UA Clear Specific gravity, UA 1.009 1.001 - 1.035 pH, UA 5.0 5.0 - 8.5 Protein, UA Negative Negative Glucose, UA 3+ (A) Negative Ketones, UA Negative Negative Bilirubin, UA Negative Negative Blood, UA Negative Negative Nitrite, UA Negative Negative Urobilinogen, UA <2.0 <2.0 Leukocyte esterase, UA Negative Negative WBC, UA <1 0 - 1 /HPF RBC, UA 1 0 - 1 /HPF Bacteria, UA None seen None seen Yeast, UA None seen Yeast with pseudohyphae, None seen UA Hyaline casts, UA 12 /LPF Specimen Performing Laboratory Urine [facility] DEPARTMENT OF PATHOLOGY AND [facility] [address] [place] [id number] * Urine culture (10/10/2017 5:28 PM) Only the most recent of 4 results within the time period is included. Component Value Ref Range Urine culture SEE COMMENTComment: Bacteriuria screen negative. Specimen Performing Laboratory [facility] DEPARTMENT OF PATHOLOGY AND GENOMIC MEDICINE [address] [place] [phone] * XR Chest 1 Vw Portable (10/10/2017 8:18 AM) Only the most recent of 5 results within the time period is included. Specimen Performing Laboratory [address] [address] Narrative PROCEDURE:XR CHEST 1 VW PORTABLE CLINICAL HISTORY:Chest Pain COMPARISON:September 15, 2017-August 15, 2017 TECHNIQUE: A single view of the chest was performed in the AP projection. FINDINGS: Interval development of mild pulmonary vascular distribution to the upper lobes is seen with no change in 5 the cardiac silhouette. The patient has had a prior median sternotomy and CABG surgery. A triple lead pacemaker is noted with the proximal lead projected over the right atrium and the distal 2 leads projected over the region of the right ventricular apex. IMPRESSION: Interval development of mild congestive cardiac failure. Otherwise unchanged. [id number] Procedure Note [facility], Radiology Results Incoming - 10/10/2017 8:23 AM CDT PROCEDURE: XR CHEST 1 VW PORTABLE CLINICAL HISTORY: Chest Pain COMPARISON: September 15, 2017-August 15, 2017 TECHNIQUE: A single view of the chest was performed in the AP projection. FINDINGS: Interval development of mild pulmonary vascular distribution to the upper lobes is seen with no change in 5 the cardiac silhouette. The patient has had a prior median sternotomy and CABG surgery. A triple lead pacemaker is noted with the proximal lead projected over the right atrium and the distal 2 leads projected over the region of the right ventricular apex. IMPRESSION: Interval development of mild congestive cardiac failure. Otherwise unchanged. [id number] * Partial thromboplastin time, activated (10/10/2017 7:24 AM) Only the most recent of 22 results within the time period is included. Component Value Ref Range PTT 32.7 23.0 - 36.0 sec Comment: PTT therapeutic range for unfractionated heparin is 61.0-112.0 seconds which corresponds to Anti-Xa 0.3-0.7 U/ml. Specimen Performing Laboratory Blood [facility] DEPARTMENT OF PATHOLOGY AND GENOMIC MEDICINE [address] [place] [address] * ECG 12 lead (10/10/2017 7:01 AM) Only the most recent of 14 results within the time period is included. Component Value Ref Range Ventricular rate 84 Atrial rate 84 SD interval 130 QRSD interval 198 QT interval 474 QTC interval 560 P axis 1 68 QRS axis 1 -68 T wave axis 99 EKG impression Atrial-sensed ventricular-paced rhythm-Abnormal ECG-In automated comparison with ECG of 10-OCT-2017 07:00,-No significant change was found- Specimen Performing Laboratory [facility] MUSE [address] [place] [address] * Manual differential (09/27/2017 2:48 AM) Only the most recent of 4 results within the time period is included. Component Value Ref Range Manual differential PERFORMED Neutrophils 73.0 (H) 39.0 - 69.0 % Lymphocytes 13.0 (L) 25.0 - 45.0 % Monocytes 6.0 0.0 - 10.0 % Eosinophils 1.0 0.0 - 5.0 % Basophils 0.0 0.0 - 1.0 % Metamyelocytes 6 % Myelocytes 1 % Promyelocytes 0 % Platelet slide review Michael adequate Anisocytosis Moderate Polychromasia Moderate Specimen Performing Laboratory [facility] DEPARTMENT OF PATHOLOGY AND GENOMIC MEDICINE [address] [place], [place] [id number] * ECG Pre/Post Op (in AM) (09/26/2017 10:11 AM) Only the most recent of 4 results within the time period is included. Component Value Ref Range Ventricular rate 65 Atrial rate 63 QRSD interval 218 QT interval 486 QTC interval 505 P axis 1 78 QRS axis 1 -74 T wave axis 102 EKG impression Ventricular-paced rhythm with occasional premature ventricular complexes-Abnormal ECG-In automated comparison with ECG of -SEP-2017 07:59,-premature ventricular complexes are now present-Vent. rate has decreased BY 21 BPM- Specimen Performing Laboratory [facility] MUSE [address] [place] [address] * Cv labor mediator procedure (09/26/2017 9:38 AM) Specimen Performing Laboratory [facility] [address] [place] [address] Narrative PCI of LM ISR with 4.0 x 8 mm BENNIE stent * POC ACT (09/26/2017 9:30 AM) Only the most recent of 4 results within the time period is included. Component Value Ref Range Activated clotting time, 426 seconds POC Specimen Performing Laboratory Blood * LDH (09/23/2017 4:00 AM) Only the most recent of 4 results within the time period is included. Component Value Ref Range LDH 478 (H) 87 - 225 U/L Specimen Performing Laboratory Plasma specimen [facility] DEPARTMENT OF PATHOLOGY AND GENOMIC MEDICINE [address] [place] [address] * Vitamin D 25 hydroxy level (09/21/2017 10:30 AM) Component Value Ref Range Vitamin D, 25-hydroxy 13.8 (L) 30.0 - 150.0 ng/mL Comment: This assay reports the sum of 25-hydroxy vitamin D3 and 25-hydroxy vitamin D2. Reference range: 0-17 years: Deficiency: less than 20ng/mL Optimum level: greater than or equal to 20 ng/mL. 18 years and older: Deficiency: less than 20ng/mL Insufficiency: 20-29 ng/mL Optimum Level: 30-80 ng/mL The assay reportable range is 3.4 155.9 ng/mL. Levels higher than 150 ng/mL may be associated with toxicity. If toxicity is clinically suspected and the reported result is >155.9 ng/mL,contact lab for alternative methods to obtain a definitive level. If separate quantitation of 25-hydroxy vitamin D3 and 25-hydroxy vitamin D2 is needed, please contact lab for alternative methods. Specimen Performing Laboratory Blood [facility] DEPARTMENT OF PATHOLOGY AND GENOMIC MEDICINE [address] [place] [address] * Peripheral smear (09/21/2017 3:40 AM) Only the most recent of 3 results within the time period is included. Component Value Ref Range Peripheral smear Done Comment: Peripheral smear is located in Hematology Laboratory, second floor of [place]. Specimen Performing Laboratory [facility] DEPARTMENT OF PATHOLOGY AND [facility] MEDICINE [address] [place] [address] * Prepare RBC, 1 Units (09/20/2017 10:10 AM) Only the most recent of 2 results within the time period is included. Component Value Ref Range Product name Red Cells AS1 Leukored Irrad Unit number [id number] Product code [id number] Dispense status Transfused Blood expiration date [id number] Blood type code 7300 Blood type B POSITIVE Specimen Performing Laboratory [facility] DEPARTMENT OF PATHOLOGY AND [facility] MEDICINE [address] [place] [address] * Type and screen (09/20/2017 10:10 AM) Only the most recent of 5 results within the time period is included. Component Value Ref Range ABO grouping B Rh type POS Antibody screen (gel) NEG Specimen Performing Laboratory [facility] [place] [address] * CBC hemogram (09/19/2017 11:40 PM) Component Value Ref Range WBC 7.36 4.50 - 11.00 k/uL RBC 2.85 (L) 4.40 - 6.00 m/uL HGB 9.1 (L) 14.0 - 18.0 g/dL HCT 27.7 (L) 41.0 - 51.0 % MCV 97.2 82.0 - 100.0 fL MCH 31.9 27.0 - 34.0 pg MCHC 32.9 31.0 - 37.0 g/dL RDW - SD 54.4 37.0 - 55.0 fL MPV 14.4 (H) 8.8 - 13.2 fL Platelet count 52 (L) 150 - 400 k/uL Nucleated RBC 0.00 /100 WBC Specimen Performing Laboratory Blood [facility] DEPARTMENT OF PATHOLOGY AND GENOMIC MEDICINE [address] [place] [address] * Transfuse RBC (09/18/2017 5:15 PM) * Hepatic function panel (09/18/2017 12:38 PM) Only the most recent of 3 results within the time period is included. Component Value Ref Range Albumin 3.1 (L) 3.5 - 5.0 g/dL Total bilirubin 1.1 0.0 - 1.2 mg/dL Bilirubin direct 0.3 0.0 - 0.3 mg/dL Alkaline phosphatase 115 40 - 129 U/L Protein 7.2 6.3 - 8.3 g/dL Comment: [place] 4.6-7.0 g/dL 1 week 4.4-7.6 g/dL 7 months-1year 5.1-7.3 g/dL 1-2 years 5.6-7.5 g/dL >3 years 6.0-8.0 g/dL 18-150 6.3-8.3 g/dL ALT 42 5 - 50 U/L AST 92 (H) 10 - 50 U/L Specimen Performing Laboratory Plasma specimen [facility] DEPARTMENT OF PATHOLOGY AND GENOMIC MEDICINE [address] [place] [address] * XR Shoulder 2+ Vw Left (09/16/2017 5:43 PM) Specimen Performing Laboratory [address] [address] Narrative Clinical history: COMPARISON: 09/15/2017 TECHNIQUE: views of the shoulder FINDINGS: Acromial humeral distance is normal. The glenohumeral distance is uniformly mildly narrowed. There are no signs of trauma. IMPRESSION: There is mild uniform degenerative narrowing of the glenohumeral joint with sclerosis and small osteophytes on the inferior glenoid margin. Mild acromioclavicular arthropathy. 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 The glenohumeral distance is uniformly mildly narrowed. There are no signs of trauma. IMPRESSION: There is mild uniform degenerative narrowing of the glenohumeral joint with sclerosis and small osteophytes on the inferior glenoid margin. Mild acromioclavicular arthropathy. [id number] * Respiratory pathogen panel (09/16/2017 10:20 AM) Component Value Ref Range Respiratory pathogen Negative for all pathogens tested: panel Negative for Adenovirus Negative for Coronavirus HKU1 Negative for Coronavirus NL63 Negative for Coronavirus 229E Negative for Coronavirus OC43 Negative for Human Metapneumovirus Negative for Rhinovirus/Enterovirus Negative for Influenza A Negative for Influenza A/H1 Negative for Influenza A/H3 Negative for Influenza A/H1-2009 Negative for Influenza B Negative for Parainfluenza Virus 1 Negative for Parainfluenza Virus 2 Negative for Parainfluenza Virus 3 Negative for Parainfluenza Virus 4 Negative for Respiratory Syncytial Virus Negative for Bordetella pertussis Negative for Chlamydophila pneumoniae Negative for Mycoplasma pneumoniae This real-time PCR assay detects the presence of nucleic acids (RNA or DNA) for the respiratory pathogens listed. A result of "Not-detected" does not exclude the possibility of the presence of one or more pathogens at concentrations less than the detectable limits of the assay. Comment: Specimen Information Specimen Source: Nares Specimen Site: Right Specimen Performing Laboratory Nares - Right [facility] DEPARTMENT OF PATHOLOGY AND GENOMIC MEDICINE [address] [place] [address] * Heparin PF4 antibody (IgG) (09/16/2017 8:52 AM) Component Value Ref Range Heparin PF4 Ab OD reading 0.094 0.000 - 0.399 Heparin PF4 Ab, IgG Negative Negative Specimen Performing Laboratory Blood [facility] DEPARTMENT OF PATHOLOGY AND GENOMIC MEDICINE [address] [place] [address] * CK-MB (09/16/2017 4:25 AM) Component Value Ref Range CK-MB 144.9 (H) 1.0 - 10.4 ng/mL Specimen Performing Laboratory Plasma specimen [facility] DEPARTMENT OF PATHOLOGY AND GENOMIC MEDICINE [address] [place] [address] * Creatine kinase, total (CPK) (09/16/2017 4:25 AM) Only the most recent of 5 results within the time period is included. Component Value Ref Range Creatine kinase 1,300 (H) 39 - 308 U/L Specimen Performing Laboratory Plasma specimen [facility] DEPARTMENT OF PATHOLOGY AND [facility] MEDICINE [address] [place] [address] * Urinalysis, automated with microscopy (09/15/2017 9:32 AM) Component Value Ref Range Color, UA Straw Appearance, UA Clear Specific gravity, UA 1.016 1.001 - 1.035 pH, UA 6.0 5.0 - 8.5 Protein, UA Negative Negative Glucose, UA 3+ (A) Negative Ketones, UA Trace (A) Negative Bilirubin, UA Negative Negative Blood, UA Negative Negative Nitrite, UA Negative Negative Urobilinogen, UA <2.0 <2.0 Leukocyte esterase, UA Negative Negative WBC, UA 1 0 - 1 /HPF RBC, UA 1 0 - 1 /HPF Bacteria, UA None seen None seen Hyaline casts, UA 7 /LPF Yeast, UA None seen Yeast with pseudohyphae, None seen UA Specimen Performing Laboratory Urine [facility] PATHOLOGY AND [address] [address] * Beta hydroxybutyrate (09/15/2017 8:41 AM) Component Value Ref Range Beta hydroxybutyrate 1.05 (H) 0.02 - 0.27 mmol/L Specimen Performing Laboratory Serum [facility] DEPARTMENT OF PATHOLOGY [address] [address] * Venous blood gas (09/15/2017 8:40 AM) Only the most recent of 2 results within the time period is included. Component Value Ref Range pH, venous 7.42 7.32 - 7.42 pCO2, venous 34 (L) 45 - 51 mmHg pO2, venous 48 (H) 25 - 40 mmHg Base excess, venous -2 -2 - 2 meq/L O2 saturation, venous 81 (H) 40 - 70 % Bicarbonate, venous 21.4 21.0 - 28.0 mmol/L Specimen Performing Laboratory Blood [facility] OF PATHOLOGY [facility] MEDICINE [address] [place] [address] * ECG ED Preliminary Interpretation - NOT AN ORDER (09/15/2017 7:19 AM) Only the most recent of 5 results within the time period is included. Narrative Marbin De León MD 09/15/20173:54 PM ECG ED Preliminary Interpretation - Not an Order Performed by: MARBIN DE LEÓN Authorized by: MARBIN DE LEÓN ECG reviewed by ED Physician in the absence of a wellness health coach: yes Previous ECG: Previous ECG:Compared to current Similarity:No change Interpretation: Interpretation: abnormal Rate: ECG rate:95 ECG rate assessment: normal Rhythm: Rhythm: sinus rhythm Ectopy: Ectopy: none QRS: QRS axis:Left QRS intervals:Normal Conduction: Conduction: abnormal Abnormal conduction: complete LBBB ST segments: ST segments:Normal T waves: T waves: normal * CRITICAL CARE (09/15/2017 7:19 AM) Narrative Marbin De León MD 09/15/20173:54 PM Critical Care Performed by: MARBIN DE LEÓN Authorized by: MARBIN DE LEÓN Critical care provider statement: Critical care time (minutes):75 Critical care time was exclusive of:Separately billable procedures and treating other patients and teaching time Critical care was necessary to treat or prevent imminent or life-threatening deterioration of the following conditions:Circulatory failure and cardiac failure Critical care was time spent personally by me on the following activities:Blood draw for specimens, development of treatment plan with patient or surrogate, discussions with consultants, evaluation of patient's response to treatment, ordering and performing treatments and interventions, ordering and review of laboratory studies, ordering and review of radiographic studies, pulse oximetry and re-evaluation of patient's condition * Phosphorus level (09/08/2017 9:45 AM) Only the most recent of 8 results within the time period is included. Component Value Ref Range Phosphorus 2.5 2.4 - 4.5 mg/dL Specimen Performing Laboratory Plasma specimen [facility] DEPARTMENT OF PATHOLOGY AND GENOMIC MEDICINE [address] [place] [address] * Cv labor mediator procedure (08/19/2017 9:19 AM) Specimen Performing Laboratory [facility] [address] [place] [address] Narrative Patient had elevated filling pressures as PCWP was elevated. Plan CHF/transplant eval. * [place] Virus (EBV) by PCR (08/19/2017 5:30 AM) Component Value Ref Range [place] virus, PCR Not-Detected Not-Detected copies/mL [place] virus, PCR See link below for PDF Lab ReportComment: Specimen Performing Laboratory [facility] DEPARTMENT OF PATHOLOGY AND GENOMIC MEDICINE [address] [place] [address] * C-reactive protein (08/19/2017 5:30 AM) Component Value Ref Range CRP 0.54 (H) 0.00 - 0.50 mg/dL Specimen Performing Laboratory Plasma specimen [facility] DEPARTMENT OF PATHOLOGY AND GENOMIC MEDICINE [address] [place] [address] * PV physiologic arterial lower extremity complete w mal (08/18/2017 10:30 AM) Specimen Performing Laboratory [facility] [address] [place] [address] Narrative Vascular Diagnostic Laboratory Physiologic Arterial Leg Report [address] [place] [address] Pat.Name:DAMEON FAYE Pat.ID:[id number] St.Date: 08/18/2017 Refer.MD:JUSTUS PRASAD MD Exam Time: 9:35:00 AMStudy Type:Physiologic Leg Height:68inWeight:233lb BSA: 2.18 m2 DOBAge:1949,67Y Sex: MALE Sonogrphr: Jina Nicholson RVT, Filomena Martinez RVT Pat. Stat.:Inpatient Room:[address] TapeVol: Shima RIVAS Event ID:[id number] Order ID:[id number] Reason for Study:Heart Transplant/ LVAD Evaluation.History of CHF, syncope and collapse, s/p CABG, NSTEMI, DM, HTN, CAD and PVD Race:C SUMMARY: PULSES: RIGHT LEFT Common Femoral ++ Popliteal++ Dorsalis Pedis+ + Posterior Tibial+ + DOPPLER SIGNALS /ANALOG WAVEFORMS: DOPPLER SIGNALS ANALOG WAVEFORMS ARTERY RIGHT LEFT RIGHT LEFT Common Femoral Normal Normal Normal Normal Superficial Femoral Normal NormalNormal Normal PoplitealNormal NormalNormal Normal Posterior Tibial Abnormal Abnormal Abnormal Abnormal Dorsalis Pedis Abnormal Abnormal AbnormalAbnormal SEGMENTAL PRESSURE(mmHg): RIGHT LEFT Brachial 140 131 Low Thigh* * Calf Ankle DP 94 Non-compressible Ankle PTNon-lerddgrpheys208 Great Toe 3734 ANKLE/BRACHIAL INDEX: RIGHTLEFT Dorsalis Pedis0.67Non-Compressible Posterior TibialNon-Compressible 1.02 TOE/BRACHIAL INDEX: RIGHT LEFT 0.260.24 PRELIMINARY FINDINGS: 1. 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 2. Unable to obtain ankle/brachial indices on the right posterior tibial and left dorsalis pedis due tonon compressible arteries. 3. Ankle/brachial index in the right dorsalis pedis fall into moderate category. 4. Ankle/brachial index of the leftposterior tibial fall into the normal category. 5. Toe/brachial indices falls into moderate-severe category. 6. Technically limited study; unable to obtain segmental pressures due to stents bilaterally. 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 2.Ankle/brachial index is moderate right and normal l eft. 3.Toe brachial index is severe, bilaterally. Signed 08/18/2017 03:22 PM Ezequiel Euceda MD Procedure Note Interface, Radiology Results In - 08/18/2017 3:23 PM [facility] Vascular Diagnostic Laboratory Physiologic Arterial Leg Report [id number]Name: DAMEON FAYE Allyn.ID: [id number] .Date: 08/18/2017 Refer.MD: JUSTUS PRASAD MD Exam Time: 9:35:00 AM Study Type:Physiologic Leg Height: 68in Weight: 233lb BSA: 2.18 m2 Age: 6 1950,67Y Sex: MALE Sonogrphr: Jina Nicholson RVT, KERI EscuderoT Pat. Stat.:Inpatient Room: [address] Tape Vol: JJ, Echo Event ID:[id number] Order ID: [id number] Reason for Study:Heart Transplant/ LVAD Evaluation. History of CHF, syncope and collapse, s/p CABG, NSTEMI, DM, HTN, CAD and PVD Race: C SUMMARY: PULSES: RIGHT LEFT Common Femoral + + Popliteal + + Dorsalis Pedis + + Posterior Tibial + + DOPPLER SIGNALS / ANALOG WAVEFORMS: DOPPLER SIGNALS ANALOG WAVEFORMS ARTERY RIGHT LEFT RIGHT LEFT Common Femoral Normal Normal Normal Normal Superficial Femoral Normal Normal Normal Normal Popliteal Normal Normal Normal Normal Posterior Tibial Abnormal Abnormal Abnormal Abnormal Dorsalis Pedis Abnormal Abnormal Abnormal Abnormal SEGMENTAL PRESSURE (mmHg): RIGHT LEFT Brachial 140 131 Low Thigh * * Calf * * Ankle DP 94 Non-compressible Ankle PT Non-compressible 143 Great Toe 37 34 ANKLE/BRACHIAL INDEX: RIGHT LEFT Dorsalis Pedis 0.67 Non-Compressible Posterior Tibial Non-Compressible 1.02 TOE/BRACHIAL INDEX: RIGHT LEFT 0.26 0.24 PRELIMINARY FINDINGS: 1. 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 2. Unable to obtain ankle/brachial indices on the right posterior tibial and left dorsalis pedis due to non compressible arteries. 3. Ankle/brachial index in the right dorsalis pedis fall into moderate category. 4. Ankle/brachial index of the left posterior tibial fall into the normal category. 5. Toe/brachial indices falls into moderate-severe category. 6. Technically limited study; unable to obtain segmental pressures due to stents bilaterally. PHYSICIAN INTERPRETATION: 1. 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 2. Ankle/brachial index is moderate right and normal l eft. 3. Toe brachial index is severe, bilaterally. Signed 08/18/2017 03:22 PM Ezequiel Euceda MD * PV carotid duplex (08/18/2017 9:20 AM) Only the most recent of 2 results within the time period is included. Specimen Performing Laboratory [facility] [address] [place] [address] Narrative Vascular Ultrasound Laboratory Carotid Artery Duplex Report [id number] [address], [place] [address] For coding quality analyst purposes, the categorization of the degree of the stenosis of this exam is based on criteria described in the IAC carotid stenosis grading white paper( www.intersocietal.org/Vascular) and Juan Daugherty., Wendy Nicolas., et al. Carotid artery stenosis: zheng-scale and Doppler US diagnosis--Society of Radiologists in Ultrasound Consensus Conference. Radiology. 2003 Nov; 229(2):340-6. Pat.Name:DAMEON FAYE.ID:[id number] .Date: 08/18/2017 Refer.MD:JUSTUS PRASAD MD Exam Time: 8:29:00 AMStudy Type:Carotid Height:68inBSA: 2.14 m2 DOBAge:1950,67Y Sex: MALE Sonogrphr: Jina Nicholson, RVT, Filomena Martinez, RVT Pat. Stat.:Inpatient Room:[address] TapeVol: EVELYN, CPT - 4: [address] Echo Event ID:[id number] Order ID:[id number] Reason for Study:Heart Transplant/ LVAD Evaluation.History of CHF, syncope and collapse, s/p CABG, NSTEMI, and PVD SUMMARY: PHYSICAL ASSESSMENT BloodPulsesCarotid Pressure Carotid TemporalBruit Right 140/ Doppler++0 Left 131/Doppler ++0 CAROTID ARTERY SCAN RIGHT:There is scattered hard plaquein the common carotid artery. There is hard and calcified plaque with shadowing noted in the bulb extending into the internal and external carotid artery. Colorflow is disturbed with elevated velocities noted in the distal common carotid artery. There is antegrade flow in the vertebral artery. LEFT:There is scattered hard plaquein the common carotid artery. There is hard and calcified plaque with shadowing noted in the bulb extending into the internal and external carotid artery. Colorflow is normal.The velocity ofthe internal carotid artery could be underestimated, due to calcification with shadowing. There is antegrade flow in the vertebral artery. PRELIMINARY FINDINGS 1.<50%stenosis in the bulb and right internal carotid artery. 2. <50%stenosis in the bulb and left internal carotid artery; however, the velocity of the internal carotid artery could be underestimated, due to calcification with shadowing. 3. <50% stenosis in theexternal carotid artery bilaterally. 4. Stenotic plaque in the right common carotid artery. 5.Non-stenotic plaque in the leftcommon carotid artery. 6. Bilateral vertebral arteries have antegrade flow. PHYSICIAN INTERPRETATION 1.Bilateral carotid artery examination demonstrates irregular calcified plaque in the common carotids, bulbsandinternal carotid arteries without hemodynamically significant stenosis. (<50%) Amendment: Because of the acoustic shadowing left ICA stenosis was underestimated. Following day: 50-69% stenosis was confirmed. Carotid Findings:RightLeft Verteb.Flw Antegrade Antegrade Subclavian Triphasic Triphasic MEASUREMENTS: DOPPLER Left CCA Dist CCA Dist PSV 114 cm/sCCA Dist EDV23.6 cm/s Left CCA Mid CCA Mid REC847 cm/sCCA Mid EDV 26.2 cm/ s Left CCA Prox CCA Prox PSV59.7 cm/sCCA Prox EDV14.1 cm/s Left ICA Dist ICA Dist PSV 105 cm/Violeta Dist EDV20.6 cm/s Left ICA Mid ICA Mid PSV 75.6 cm/Violeta Mid EDV 21.6 cm/s Left ICA Prox ICA Prox PSV 102 cm/Violeta Prox EDV23.6 cm/s Left SCA Prox SCA Prox PSV 171 cm/sSCA Prox EDV 0 cm/ s Left Vertebral Vertebral PSV 63.9 cm/sVertebral EDV 9.38 cm/s Right CCA Dist CCA Dist PSV 130 cm/sCCA Dist EDV19.6 cm/s Right CCA Mid CCA Mid PSV 98.2 cm/sCCA Mid EDV 11.8 cm/s Right CCA Prox CCA Prox PSV 106 cm/sCCA Prox EDV15.7 cm/s Right ICA Dist ICA Dist PSV66.3 cm/Violeta Dist EDV19.9 cm/s Right ICA Mid ICA Mid PSV 82.5 cm/Violeta Mid EDV 22 cm/ s Right ICA Prox ICA Prox PSV 102 cm/Violeta Prox EDV21.2 cm/s Right ECA Prox ECA Prox PSV 133 cm/sECA Prox EDV20.6 cm/s Right Vertebral Vertebral PSV 68 cm/sVertebral EDV 15.2 cm/s Left ECA Prox ECA Prox PSV80.5 cm/sECA Prox EDV 7.9 cm/s Right ICA/CCA Ratio ICA/CCA PSV 1.04 Left ICA/CCA Ratio ICA/CCA PSV0.895 Right SCA Prox SCA Prox PSV 126 cm/sSCA Prox EDV 0 cm/ s Signed 08/22/2017 8:36:45 AM Ezequiel Euceda MD Revised Procedure Note Interface, Radiology Results In - 08/22/2017 8:37 AM [facility] Vascular Ultrasound Laboratory Carotid Artery Duplex Report [id number] [place] [address] For coding quality analyst purposes, the categorization of the degree of the stenosis of this exam is based on criteria described in the IAC carotid stenosis grading white paper( www.intersocietal.org/Vascular) and Celena Daugherty, John Nicolas, et al. Carotid artery stenosis: zheng-scale and Doppler US diagnosis--Society of Radiologists in Ultrasound Consensus Conference. Radiology. 2003 Nov; 229(2):340-6. Pat.Name: DAMEON FAYE Pat.ID: [id number] St.Date: 08/18/2017 Refer.MD: JUSTUS PRASAD MD Exam Time: 8:29:00 AM Study Type:Carotid Height: 68in BSA: 2.14 m2 Age: 6 1950,67Y Sex: MALE Sonogrphr: Jina Nicholson, RVT, Filomena Martinez RVT Pat. Stat.:Inpatient Room: [address] Tape Vol: JJ, CPT - 4: [address] Echo Event ID:[id number] Order ID: [id number] Reason for Study:Heart Transplant/ LVAD Evaluation. History of CHF, syncope and collapse, s/p CABG, NSTEMI, and PVD SUMMARY: PHYSICAL ASSESSMENT Blood Pulses Carotid Pressure Carotid Temporal Bruit Right 140/ Doppler + + 0 Left 131/Doppler + + 0 CAROTID ARTERY SCAN RIGHT: There is scattered hard plaque in the common carotid artery. There is hard and calcified plaque with shadowing noted in the bulb extending into the internal and external carotid artery. Colorflow is disturbed with elevated velocities noted in the distal common carotid artery. There is antegrade flow in the vertebral artery. LEFT: There is scattered hard plaque in the common carotid artery. There is hard and calcified plaque with shadowing noted in the bulb extending into the internal and external carotid artery. Colorflow is normal. The velocity of the internal carotid artery could be underestimated, due to calcification with shadowing. There is antegrade flow in the vertebral artery. PRELIMINARY FINDINGS 1. <50% stenosis in the bulb and right internal carotid artery. 2. <50% stenosis in the bulb and left internal carotid artery; however, the velocity of the internal carotid artery could be underestimated, due to calcification with shadowing. 3. <50% stenosis in the external carotid artery bilaterally. 4. Stenotic plaque in the right common carotid artery. 5.Non-stenotic plaque in the left common carotid artery. 6. Bilateral vertebral arteries have antegrade flow. PHYSICIAN INTERPRETATION 1. Bilateral carotid artery examination demonstrates irregular calcified plaque in the common carotids, bulbs and internal carotid arteries without hemodynamically significant stenosis. (<50%) Amendment: Because of the acoustic shadowing left ICA stenosis was underestimated. Following day: 50-69% stenosis was confirmed. Carotid Findings: Right Left Verteb.Flw Antegrade Antegrade Subclavian Triphasic Triphasic MEASUREMENTS: DOPPLER Left CCA Dist CCA Dist PSV 114 cm/s CCA Dist EDV 23.6 cm/s Left CCA Mid CCA Mid PSV 114 cm/s CCA Mid EDV 26.2 cm/s Left CCA Prox CCA Prox PSV 59.7 cm/s CCA Prox EDV 14.1 cm/s Left ICA Dist ICA Dist PSV 105 cm/s ICA Dist EDV 20.6 cm/s Left ICA Mid ICA Mid PSV 75.6 cm/s ICA Mid EDV 21.6 cm/s Left ICA Prox ICA Prox PSV 102 cm/s ICA Prox EDV 23.6 cm/s Left SCA Prox SCA Prox PSV 171 cm/s SCA Prox EDV 0 cm/s Left Vertebral Vertebral PSV 63.9 cm/s Vertebral EDV 9.38 cm/s Right CCA Dist CCA Dist PSV 130 cm/s CCA Dist EDV 19.6 cm/s Right CCA Mid CCA Mid PSV 98.2 cm/s CCA Mid EDV 11.8 cm/s Right CCA Prox CCA Prox PSV 106 cm/s CCA Prox EDV 15.7 cm/s Right ICA Dist ICA Dist PSV 66.3 cm/s ICA Dist EDV 19.9 cm/s Right ICA Mid ICA Mid PSV 82.5 cm/s ICA Mid EDV 22 cm/s Right ICA Prox ICA Prox PSV 102 cm/s ICA Prox EDV 21.2 cm/s Right ECA Prox ECA Prox PSV 133 cm/s ECA Prox EDV 20.6 cm/s Right Vertebral Vertebral PSV 68 cm/s Vertebral EDV 15.2 cm/s Left ECA Prox ECA Prox PSV 80.5 cm/s ECA Prox EDV 7.9 cm/s Right ICA/CCA Ratio ICA/CCA PSV 1.04 Left ICA/CCA Ratio ICA/CCA PSV 0.895 Right SCA Prox SCA Prox PSV 126 cm/s SCA Prox EDV 0 cm/s Signed 08/22/2017 8:36:45 AM Ezequiel Euceda MD Revised * C1Q class 1 & 2 antibody (08/18/2017 5:45 AM) Component Value Ref Range C1Q class 1 & 2 antibody See link below for PDF Lab Report Specimen Performing Laboratory [facility] DEPARTMENT OF PATHOLOGY AND GENOMIC MEDICINE [address] [place] [address] * Syphilis treponemal IgG (08/18/2017 5:45 AM) Component Value Ref Range Syphilis treponemal IgG Non-reactiveComment: Non-reactive: No serological Non-reactive evidence of Syphilis infection Specimen Performing Laboratory Serum [facility] DEPARTMENT OF PATHOLOGY AND GENOMIC MEDICINE [address] [place] [address] * ABO (08/18/2017 5:45 AM) Component Value Ref Range ABO grouping B Specimen Performing Laboratory [facility] DEPARTMENT OF PATHOLOGY AND GENOMIC MEDICINE [address] [place] [address] * Tacos-Peacock virus antibody test (08/18/2017 5:45 AM) Component Value Ref Range EBV Ab to viral capsid POSITIVE (A) Negative Ag, IgG EBV Ab to viral capsid Negative Negative Ag, IgM EBV Ab to nuclear Ag, IgG POSITIVE (A) Negative EBV Ab to early (D) Ag, Negative Negative IgG Comment: Interpretive Information: Infection Status VCA_IgG No Previous _ Acute + Recent + Past + Reactivation + Infection Status VCA_IgM No Previous _ Acute + Recent +/- Past - Reactivation +/- Infection Status EA No Previous _ Acute +/- Recent +/- Past - Reactivation + Infection Status EBNA No Previous _ Acute - Recent +/- Past + Reactivation + Specimen Performing Laboratory Serum [facility] DEPARTMENT OF PATHOLOGY AND GENOMIC MEDICINE [address] [place] [address] * TB T-SPOT (08/18/2017 5:45 AM) Component Value Ref Range TB T-SPOT SEE NOTE Comment: T-SPOT TUBERCULOSIS Nil Control: 0 Panel A: 0 Panel B: 0 Positive Control: SAT Result: NEGATIVE NOTE: TMTC INDICATES TOO MANY SPOTS TO COUNT SAT INDICATES THE WELL WAS SATURATED RESULTS INTERPRETATION: RESULTS ARE NEGATIVE WHEN (PANEL A-NIL) OR (PANEL B-NIL) <=4 SPOTS, INCLUDING VALUES LESS THAN ZERO. RESULTS ARE POSITIVE WHEN (PANEL A-NIL) OR (PANEL B-NIL) >=8 SPOTS RESULTS ARE BORDERELINE WHEN EITHER (PANEL A-NIL) OR (PANEL B-NIL)=5,6,0R 7. THE TEST IS INVALID WHEN EITHER OF THE FOLLOWING CONDITIONS IS MET: 1.) THE NIL CONTROL HAS >10 SPOTS 2.) THE MITOGEN (POSITIVE CONTROL) HAS <20 SPOTS AND BOTH (PANEL A-NIL) AND (PANEL B-NIL) <=4 SPOTS. M. TUBERCULOSIS INFECTION UNLIKELY, BUT CANNOT BE EXCLUDED ESPECIALLY WHEN: 1. ANY ILLNESS IS CONSISTENT WITH TB DISEASE. 2. LIKELIHOOD OF PROGRESSION TO DISEASE (e.g. DUE TO IMMUNOSUPPRESSION) IS INCREASED. LIMITATIONS: DIAGNOSING OR EXCLUDING TUBERCULOSIS DISEASE, AND ASSESSING THE PROBABILITY OF LTBI, REQUIRES A COMBINATION OF EPIDEMIOLOGICAL, HISTORICAL, MEDICAL, AND DIAGNOSTIC FINDINGS THAT SHOULD BE TAKEN INTO ACCOUNT WHEN INTERPRETING T-SPOT.TB REFER TO THE MOST RECENT CDC GUIDANCE (HTTP: //WWW.CDC.GOV/NCHSTP/TB) FOR DETAILED RECOMMENDATIONS ABOUT DIAGNOSING TB INFECTION (INCLUDING DISEASE) AND SELECTING PERSONS FOR TESTING. 1.) A FALSE NEGATIVE RESULT CAN BE CAUSED BY INCORRECT BLOOD SAMPLE COLLECTION OR IMPROPER HANDLING OF THE SPECIMEN, AFFECTING LYMPHOCYTE FUNCTION 2.) THE PERFORMANCE OF T-SPOT.TB HAS NOT BEEN ADEQUATELY EVALUATED WITH SPECIMENS FROM INDIVIDUALS YOUNGER THAN AGE 17 YEARS, IN WOMEN, AND IN PATIENTS WITH HEMOPHILIA. 3-) A FALSE POSITIVE RESULT WAS OBTAINED FOR T-SPOT.TB WHEN TESTED IN SUBJECTS WITH M. XENOPI, M. KANSASII, AND M. GORDONAE. WHILE ESAT-6 AND CFP-10 ANTIGENS ARE ABSENT FROM BCG STRAINS OF M. BOVIS AND FROM MOST ENVIRONMENTAL MYCOBACTERIA, IT IS POSSIBLE THAT A POSITIVE T-SPOT.TB RESULT MAY BE DUE TO INFECTION WITH M. KANSASII, M. SZULGAI, M. GORDONAE, OR M. MARINUM. ALTERNATIVE TESTS WOULD BE REQUIRED IF THESE INFECTIONS ARE SUSPECTED. 4.) A NEGATIVE TEST RESULT DOES NOT EXCLUDE THE POSSIBILITY OF EXPOSURE TO, OR INFECTION WITH, M. TUBERCULOSIS. PATIENTS WITH RECENT EXPOSURE TO TB INFECTED INDIVIDUALS EXHIBITING A NEGATIVE T-SPOT.TB RESULT SHOULD BE CONSIDERED FOR RETESTING WITHIN 6 WEEKS OR IF OTHER RELEVANT CLINICAL SYMPTOMS INDICATE POSSIBLE INFECTION. 5.) A POSITIVE TEST RESULT DOES NOT RULE IN ACTIVE TB DISEASE; OTHER TESTS SHOULD BE PERFORMED TO CONFIRM THE DIAGNOSIS OF ACTIVE TB DISEASE SUCH SPUTUM SMEAR AND CULTURE, PCR AND CHEST RADIOGRAPHY. 6.) T-SPOT.TB TEST HAS NOT BEEN EVALUATED IN SUBJECTS WHO HAVE RECEIVED >1 MONTH OF ANTI-TB THERAPY. 7. ) REFRIGERATED AND FROZEN SAMPLES ARE NOT RECOMMENDED FOR USE WITH T=SPOT.TB TEST. Performed by: [facility] Molecular Tuberculosis Laboratory [facility] ([id number]) [place], [place] [address] Specimen Performing Laboratory Blood [facility] [address] [place] [address] * Single antigen beads (08/18/2017 5:45 AM) Component Value Ref Range Single antigen beads See link below for PDF Lab Report Specimen Performing Laboratory [facility] DEPARTMENT OF PATHOLOGY AND GENOMIC MEDICINE [address] [place] [address] * Cytomegalovirus Ab, IgM (08/18/2017 5:45 AM) Component Value Ref Range Cytomegalovirus Ab, IgM NegativeComment: Negative: CMV IgM antibodies were Negative not detected. Specimen Performing Laboratory Serum [facility] DEPARTMENT OF PATHOLOGY AND GENOMIC MEDICINE [address] [place] [address] * Toxoplasma IgM Ab (08/18/2017 5:45 AM) Component Value Ref Range Toxoplasma IgM 0.01 0.00 - 0.54 TV Comment: Negative < 0.54 TV Equivocal >=0.55 - 0.64 TV Positive >=0.65 TV Specimen Performing Laboratory Blood [facility] DEPARTMENT OF PATHOLOGY AND [facility] [address] [place] [address] * Toxoplasma gondii antibody, IgG (08/18/2017 5:45 AM) Component Value Ref Range Toxoplasma gondii Ab, IgG <3 0 - 9 IU/mL Comment: Equal or less than 9 IU/mL Negative; No previous T. gonii infection Specimen Performing Laboratory Serum [facility] DEPARTMENT OF PATHOLOGY AND [facility] [address] [place] [address] * Cytomegalovirus Ab, IgG (08/18/2017 5:45 AM) Component Value Ref Range Cytomegalovirus Ab, IgG Positive (A) Negative Comment: Positive; IgG antibody to CMV detected which may indicate exposure to CMV infection. Specimen Performing Laboratory Serum [facility] [address] [address] * Prealbumin level (08/18/2017 5:45 AM) Component Value Ref Range Prealbumin 22 16 - 32 mg/dL Specimen Performing Laboratory Serum [facility] DEPARTMENT OF PATHOLOGY [facility] [address] [place] [address] * Creatinine clearance, urine, 24 hour (08/18/2017 4:00 AM) Component Value Ref Range Collection start date, 08/17/17 urine Collection start time, 1850 urine Collection stop date, 08/18/17 urine Collection stop time, 1850 urine Hours of collection 24 Total volume, urine 1,200 mL Creatinine 1.9 (H) 0.7 - 1.2 mg/dL Urine creatinine 70 mg/dL clearance concentration Urine creatinine 840 mg/vol clearance excretion Creat clearance, urine 24 31 mL/min hr calc Comment: CREATININE CLEARANCE REFERENCE RANGE: MALES 85 - 125 ML/MIN/1.73 SQ.METER FEMALES 75 - 115 ML/MIN/1.73 SQ.METER Specimen Performing Laboratory Urine [facility] DEPARTMENT OF PATHOLOGY AND [facility] [address] [place] [address] * Hepatitis A antibody total (08/18/2017 4:00 AM) Component Value Ref Range Hepatitis A total Ab Non-reactive Non-reactive Specimen Performing Laboratory Serum [facility] DEPARTMENT OF PATHOLOGY AND [facility] [address] [place] [address] * Hepatitis acute panel (08/18/2017 4:00 AM) Component Value Ref Range Hepatitis A IgM Non-reactive Non-reactive Hepatitis B core IgM Non-reactive Non-reactive Hepatitis B surface Ag Non-reactive Non-reactive Hepatitis C Ab Non-reactive Non-reactive Specimen Performing Laboratory Serum [facility] DEPARTMENT OF PATHOLOGY AND [facility] [address] [place] [address] * HIV 1, 2 antibody (08/18/2017 4:00 AM) Component Value Ref Range HIV 1, 2 antibody Non-reactive Non-reactive Comment: Starting from October 28 2015, 4th generation HIV screening and confirmation assays are in use at [facility], consistent with the CDC-recommended algorithm. The screening test detects antibodies to HIV-1, HIV-2 and the p24 antigen. Positive screening results will be automatically reflexed to a HIV-1/HIV-2 differentiation assay. Indeterminant HIV-1 results will be further automatically reflexed to a nucleic acid test for detection of acute infection. Western blot will no longer be performed as a confirmation test. For a quick reference guide on the testing algorithm, please refer to: http://stacks.cdc.gov/view/cdc/44607. Specimen Performing Laboratory Serum [facility] [address] [address] * Hepatitis B surface antibody (08/18/2017 4:00 AM) Component Value Ref Range Hepatitis B surface Ab Non-reactive Non-reactive Specimen Performing Laboratory Serum [facility] DEPARTMENT OF PATHOLOGY [address] [address] * Uric acid level (08/18/2017 4:00 AM) Component Value Ref Range Uric acid 13.8 (H) 3.4 - 7.0 mg/dL Specimen Performing Laboratory Plasma specimen [facility] DEPARTMENT OF PATHOLOGY AND GENOMIC MEDICINE [address] [place] [address] * T3 (08/18/2017 4:00 AM) Component Value Ref Range T3 91 80 - 200 ng/dL Specimen Performing Laboratory Plasma specimen [facility] DEPARTMENT OF PATHOLOGY AND GENOMIC MEDICINE [address] [place] [address] * T4, free (08/18/2017 4:00 AM) Component Value Ref Range T4, free 1.2 0.9 - 1.7 ng/dL Specimen Performing Laboratory Plasma specimen [facility] DEPARTMENT OF PATHOLOGY AND GENOMIC MEDICINE [address] [place] [address] * T4 (08/18/2017 4:00 AM) Component Value Ref Range T4 4.7 4.5 - 11.7 ug/dL Specimen Performing Laboratory Plasma specimen [facility] [place] [address] * Prostate specific antigen (08/18/2017 4:00 AM) Component Value Ref Range PSA 0.6 0.0 - 4.0 ng/mL Comment: The VICTORINO 8000 PSA immunoassay was used. Results obtained with different assay methods or kits should not be used interchangeably and may be different. Specimen Performing Laboratory Plasma specimen [facility] DEPARTMENT OF PATHOLOGY AND [address] [address] * Ferritin level (08/18/2017 4:00 AM) Component Value Ref Range Ferritin level 100 30 - 400 ng/mL Specimen Performing Laboratory Plasma specimen [facility] [place] [address] * CT Chest Wo Contrast Abdomen Wo Contrast Pelvis Wo Contrast (08/17/2017 6:38 PM) Specimen Performing Laboratory [address] [address] Narrative EXAMINATION:CT CHEST WO CONTRAST ABDOMEN WO CONTRAST PELVIS WO CONTRAST CLINICAL HISTORY:Heart transplant evaluation TECHNIQUE:Multiple axial images of the chest, abdomen, and pelvis were obtained without intravenous contrast. The lack of intravenous contrast reduces the sensitivity of detecting solid organ disease. Sagittal and coronal computerized reformatted images were obtained. CT imaging was performed with iterative reconstruction techniques and/or automated exposure control to reduce radiation dose. COMPARISON:None. IMPRESSION: Chest, abdomen, and pelvis: 1. Changes related midline sternotomy noted, and transvenous pacemaker is present. 2.Extensive vascular calcifications are noted diffusely. 3.There is no evidence of hilar or mediastinal lymphadenopathy. 4.No parenchymal abnormality is noted in the lungs. 5.The old granulomatous calcifications are noted in the spleen. Focal hepatic mass. 6.The pancreas and both adrenal glands are normal in appearance. 7.There is no evidence of hydronephrosis involving either kidney. Extensive small vessel atherosclerotic calcifications are present, compatible with long- standing diabetes. Very small calculus in the right mid kidney is present, without evidence of hydronephrosis. 8.There is no evidence pelvic mass or fluid collection. 9.No bowel distention is appreciated. 10.Extensive arthritic changes are noted involving the spine. [id number] Procedure Note Hm Interface, Radiology Results Incoming - 08/17/2017 6:46 PM BASEBALL COACH EXAMINATION: CT CHEST WO CONTRAST ABDOMEN WO CONTRAST PELVIS WO CONTRAST CLINICAL HISTORY: Heart transplant evaluation TECHNIQUE: Multiple axial images of the chest, abdomen, and pelvis were obtained without intravenous contrast. The lack of intravenous contrast reduces the sensitivity of detecting solid organ disease. Sagittal and coronal computerized reformatted images were obtained. CT imaging was performed with iterative reconstruction techniques and/or automated exposure control to reduce radiation dose. COMPARISON: None. IMPRESSION: Chest, abdomen, and pelvis: 1. Changes related midline sternotomy noted, and transvenous pacemaker is present. 2. Extensive vascular calcifications are noted diffusely. 3. There is no evidence of hilar or mediastinal lymphadenopathy. 4. No parenchymal abnormality is noted in the lungs. 5. The old granulomatous calcifications are noted in the spleen. Focal hepatic mass. 6. The pancreas and both adrenal glands are normal in appearance. 7. There is no evidence of hydronephrosis involving either kidney. Extensive small vessel atherosclerotic calcifications are present, compatible with long- standing diabetes. Very small calculus in the right mid kidney is present, without evidence of hydronephrosis. 8. There is no evidence pelvic mass or fluid collection. 9. No bowel distention is appreciated. 10. Extensive arthritic changes are noted involving the spine. [facility]-[id number] * CT Head Wo Contrast (08/17/2017 6:38 PM) Only the most recent of 3 results within the time period is included. Specimen Performing Laboratory [address] [address] Narrative EXAMINATION: CT HEAD WO CONTRAST CLINICAL HISTORY: Heart Transplant Evaluation COMPARISON:06/08/[address] TECHNIQUE: Noncontrast enhanced images of the brain were obtained from the skull base to the vertex. Both soft tissue and bone reconstruction algorithms were performed. CT scans are performed using radiation dose reduction techniques (iterative reconstruction and/or automated exposure control). Technical factors are evaluated and adjusted to ensure appropriate moderation of exposure. Automated dose management technology is applied to adjust radiation exposure while achieving a diagnostic quality image. FINDINGS: Mild generalized brain parenchymal volume loss. Nonspecific hypoattenuation of the supratentorial white matter, likely chronic microangiopathic changes. Mild cerebrovascular calcifications. The brain parenchyma is otherwise unremarkable. The zheng-white matter differentiation is preserved. No evidence of acute intra or extra-axial hemorrhage, mass, mass effect or acute territorial infarction. There is no acute hydrocephalus. Basal cisterns are patent. No acute soft tissue hematoma or laceration. No skull fractures or aggressive bony lesions. Paranasal sinuses and mastoid air cells are clear. Orbits are normal. IMPRESSION: Involutional changes as detailed above with no acute intracranial abnormality. [id number] Procedure Note Interface, Radiology Results Incoming - 08/17/2017 6:44 PM BASEBALL COACH EXAMINATION: CT HEAD WO CONTRAST CLINICAL HISTORY: Heart Transplant Evaluation COMPARISON: 06/08/[address] TECHNIQUE: Noncontrast enhanced images of the brain were obtained from the skull base to the vertex. Both soft tissue and bone reconstruction algorithms were performed. CT scans are performed using radiation dose reduction techniques (iterative reconstruction and/or automated exposure control). Technical factors are evaluated and adjusted to ensure appropriate moderation of exposure. Automated dose management technology is applied to adjust radiation exposure while achieving a diagnostic quality image. FINDINGS: Mild generalized brain parenchymal volume loss. Nonspecific hypoattenuation of the supratentorial white matter, likely chronic microangiopathic changes. Mild cerebrovascular calcifications. The brain parenchyma is otherwise unremarkable. The zheng-white matter differentiation is preserved. No evidence of acute intra or extra-axial hemorrhage, mass, mass effect or acute territorial infarction. There is no acute hydrocephalus. Basal cisterns are patent. No acute soft tissue hematoma or laceration. No skull fractures or aggressive bony lesions. Paranasal sinuses and mastoid air cells are clear. Orbits are normal. IMPRESSION: Involutional changes as detailed above with no acute intracranial abnormality. [id number] * US Renal (08/17/2017 5:44 PM) Specimen Performing Laboratory [facility] [address] [place] [address] Narrative PROCEDURE:US RENAL CLINICAL HISTORY:Elevated abnormal renal function tests, Heart Transplant LVAD Evaluation COMPARISON:May 24, 2016 TECHNIQUE: Multiple echo tomograms were performed in the sagittal and transverse orientations of the right and left kidney. Color-flow and spectral pulse wave Doppler interrogation was also performed of the arterial system in both kidneys with calculation of resistive indices. The bladder was also interrogated.. FINDINGS: The renal parenchymal echogenicity is increased relative to the adjacent solid organs but less relative to the renal sinus. The renal parenchymal thickness is preserved. No hydronephrosis, perinephric fluid collections, solid masses, or abnormal posterior acoustic shadowing is demonstrated from either kidney. A small simple renal cortical cyst is present in the anterior mid right kidney and measures 1.2 cm diameter. The right kidney [id number] cmLENGTH X5.5 cm AP. The right renal parenchymal thickness measures 1.1 cm. The left kidney [id number] cm LENGTH X 4.8 cm AP. The left renal parenchymal thickness measures 1.8 cm. Color flowDoppler confirm arterial flow to both kidneys. The bladder at presentation 5.3 cm x 5.1 cm x 11.2 cm for volume of 140 mL. IMPRESSION: Abnormal study. No evidence of obstructive uropathy. Slight increased renal parenchymal echogenicity as before representing nonspecific medical renal parenchymal [id number] . Procedure Note Hm Interface, Radiology Results Incoming - 08/17/2017 6:13 PM BASEBALL COACH PROCEDURE: US RENAL CLINICAL HISTORY: Elevated abnormal renal function tests, Heart Transplant LVAD Evaluation COMPARISON: May 24, 2016 TECHNIQUE: Multiple echo tomograms were performed in the sagittal and transverse orientations of the right and left kidney. Color-flow and spectral pulse wave Doppler interrogation was also performed of the arterial system in both kidneys with calculation of resistive indices. The bladder was also interrogated.. FINDINGS: The renal parenchymal echogenicity is increased relative to the adjacent solid organs but less relative to the renal sinus. The renal parenchymal thickness is preserved. No hydronephrosis, perinephric fluid collections, solid masses, or abnormal posterior acoustic shadowing is demonstrated from either kidney. A small simple renal cortical cyst is present in the anterior mid right kidney and measures 1.2 cm diameter. The right kidney measures 10.5 cm LENGTH X 5.5 cm AP. The right renal parenchymal thickness measures 1.1 cm. The left kidney measures 11 cm LENGTH X 4.8 cm AP. The left renal parenchymal thickness measures 1.8 cm. Color flow Doppler confirm arterial flow to both kidneys. The bladder at presentation 5.3 cm x 5.1 cm x 11.2 cm for volume of 140 mL. IMPRESSION: Abnormal study. No evidence of obstructive uropathy. Slight increased renal parenchymal echogenicity as before representing nonspecific medical renal parenchymal [id number] . * XR Chest 2 Vw (08/17/2017 5:35 PM) Only the most recent of 4 results within the time period is included. Specimen Performing Laboratory [facility] [address] [place] [address] Narrative Study:XR CHEST 2 VW History: heart transplant evaluation COMPARISON: August 15, 2017 IMPRESSION: 2 views of the chest. Left chest pacer and leads in stable position.There is no focal consolidation, pleural effusion or pneumothorax.Cardiac silhouette is enlarged, stable.Visualized osseous structures arestable. [facility]-[id number] Procedure Note Interface, Radiology Results Incoming - 08/17/2017 5:41 PM BASEBALL COACH Study:XR CHEST 2 VW History: heart transplant evaluation COMPARISON: August 15, 2017 IMPRESSION: 2 views of the chest. Left chest pacer and leads in stable position. There is no focal consolidation, pleural effusion or pneumothorax. Cardiac silhouette is enlarged, stable. Visualized osseous structures are stable. [facility]-[id number] * XR Panorex (08/17/2017 5:34 PM) Specimen Performing Laboratory [facility] [address] [place] [address] Narrative EXAMINATION: XR PANOREX CLINICAL HISTORY: Heart transplant evaluation COMPARISON:None IMPRESSION: No periapical lucency. Dental amalgam is present. Dental caries of the right maxillary premolars. [facility]-[id number] Procedure Note Interface, Radiology Results Incoming - 08/17/2017 5:41 PM BASEBALL COACH EXAMINATION: XR PANOREX CLINICAL HISTORY: Heart transplant evaluation COMPARISON: None IMPRESSION: No periapical lucency. Dental amalgam is present. Dental caries of the right maxillary premolars. [facility]-[id number] * Echocardiogram complete w contrast and 3D if needed (08/16/2017 10:02 AM) Specimen Performing Laboratory [facility] [address] [place] [address] Narrative Echocardiography Report [address] [place] [address] Pat.Name:YUNIERDAMEON Allyn.ID:[id number] .Date: 08/16/2017 Refer.MD:ORVILLE STEELE MD Exam Time: 9:02:00 AMStudy Type:Routine Echo Height:68inWeight:228lb BSA: 2.16 m2 DOBAge:[age]Y Sex: MALEBP: 137/60 Sonogrphr: AURELIANO Wesley, RDRIOSPEPPER/ Mohini Levin MD Pat. Stat.:Inpatient Room:Counts Include 234 Beds At [facility] Study Status:Final Echo Event ID:[id number] Order ID:[id number] Reason for Study:HF; re-eval therapy guidance History / Clinical:Chest pain, HYPERTENSION, HYPERLIPIDEMIA, DIABETES, Coronary Artery Disease, Shortness of Breath, Valvular Heart Disease; Aortic Stenosis, Edema, Obesity Procedures:2D Echo, Colorflow Doppler, Intravenous Definity Contrast Race:C SUMMARY: LV size is severely enlarged. EF=30%. RV systolic function is mildly depressed. LA volume is moderately enlarged. Normal prosthetic valve velocity and gradient. LV filling pressure is elevated. Estimated PA systolic pressure is 45 mmHg, assuming a mean RAP of 15 mmHg. FINDINGS: LV: LV size is severely enlarged. LV EF isseverely depressed. Overallwall motion is hypokinetic. EF=30%. RV: RV size is mildly enlarged. RV systolic function is mildly depressed. LA: LA volume is moderately enlarged. RA: RA volume is severely enlarged. A catheter or pacemaker wire isseen. AO: Aortic root diameter is normal. ELISHA: No pericardial effusion. AV: Prosthetic aortic valve. Normal prosthetic valve velocity andgradient. Surgical Prosthetic AV Doppler velocity index is0.46 (normal>0.25). MV: Severe mitral annular calcification. PV: No structural PV abnormalities noted. TV: No structural TV abnormalities noted. Mild tricuspid regurgitation Aguirre: LV relaxation is impaired. LV filling pressure is elevated. Other:Estimated PA systolic pressure is 45 mmHg, assuming a mean RAPof 15 mmHg. MEASUREMENTS: 2D Parasternal Long [place] LVIDd6.5 cmIndex 3 cm/m Ao An1.7 cm LVIDs5.3 cmAo Rtd 3.1 cm Index1.4 cm/m LV%fs 18.5 % LV Vnzb617.3 g(122-174) IVSd 1.1 cmLVM Index 139.5 g/m2 LVPWd1 cmRWT 0.3 LA Ds4.6 cmLVOT 1.9 cm LV EF SinglePlane LV Ad 53 cm2(9.5-22.3) LVESV 163.5 ml Index75.7 ml/m KSHVU130.2 ml (65-193) Lszhn247.9 ml/m LV SV 71.7 ml LV As 43.4 cm2(4-11.6) LV EF 30.5 % (63-77) LA Sng Plane LA Area 27.4 cm2(8.8-23.4) LA Vol94.9 ml Index44 ml/m LA LngAx 6.7 cm RA Sng Plane RA Area 28.3 cm2(8.3-19.5) RA Vol 105.8 ml Index49 ml/m RA LngAx 6.3 cm DOPPLER AV For Flow/LEANDRA AV pkVel 233.9 cm/s (100-170) AV AC/ET 0.3 AV mnVel 151.4 cm/Yamile TVI 44.1 cm AV pkPG 21.9 mmHgAVpkAcRt 5395.9 cm/s2 AV Mean G 11.2 mmHgAV DeRt 802.1 cm/s2 AV AC 97 msec (83-118) AV Area1.5 cm2(3-5) AV ET292 msec LVOT For Flow LVOT Area3.1 cm2 LVOT SV 64.6 ml LVOTpkVel 90.3 cm/sHR 59.9 bpm LVOTpkPG 3.3 mmHgLVOT CO 3.9 l/min LVOTmnPG 2 mmHgLVOT CI 1.8 l/m/m2 LVOT TVI20.6 cm MV For Flow/Valve Assess MV pkVel 131 cm/sMV Mean G 1.8 mmHg MV pkPG6.9 mmHgMV TVI 32.5 cm Signed 08/16/2017 02:48 PM Jeremiah Lazo M.D. Procedure Note Interface, Radiology Results In - 08/16/2017 2:49 PM BASEBALL COACH Echocardiography Report [address] [place] [address] Pat.Name: DAMEON FAYE.ID: [id number] .Date: 08/16/2017 Refer.MD: ORVILLE STEELE MD Exam Time: 9:02:00 AM Study Type:Routine Echo Height: 68in Weight: 228lb BSA: 2.16 m2 Age: 4 1950,67Y Sex: MALE BP: 137/60 Sonogrphr: Kaushik Engel, AURELIANO, RD, PEPPER/ Mohini Levin MD Pat. Stat.:Inpatient Room: Counts Include 234 Beds At [facility] Study Status:Final Echo Event ID:[id number] Order ID: [id number] Reason for Study:HF; re-eval therapy guidance History / Clinical:Chest pain, HYPERTENSION, HYPERLIPIDEMIA, DIABETES, Coronary Artery Disease, Shortness of Breath, Valvular Heart Disease; Aortic Stenosis, Edema, Obesity Procedures:2D Echo, Colorflow Doppler, Intravenous Definity Contrast Race: C SUMMARY: LV size is severely enlarged. EF=30%. RV systolic function is mildly depressed. LA volume is moderately enlarged. Normal prosthetic valve velocity and gradient. LV filling pressure is elevated. Estimated PA systolic pressure is 45 mmHg, assuming a mean RAP of 15 mmHg. FINDINGS: LV: LV size is severely enlarged. LV EF is severely depressed. Overall wall motion is hypokinetic. EF=30%. RV: RV size is mildly enlarged. RV systolic function is mildly depressed. LA: LA volume is moderately enlarged. RA: RA volume is severely enlarged. A catheter or pacemaker wire is seen. AO: Aortic root diameter is normal. ELISHA: No pericardial effusion. AV: Prosthetic aortic valve. Normal prosthetic valve velocity and gradient. Surgical Prosthetic AV Doppler velocity index is 0.46 (normal>0.25). MV: Severe mitral annular calcification. PV: No structural PV abnormalities noted. TV: No structural TV abnormalities noted. Mild tricuspid regurgitation Aguirre: LV relaxation is impaired. LV filling pressure is elevated. Other: Estimated PA systolic pressure is 45 mmHg, assuming a mean RAP of 15 mmHg. MEASUREMENTS: 2D Parasternal Long [place] LVIDd 6.5 cm Index 3 cm/m Ao An 1.7 cm LVIDs 5.3 cm Ao Rtd 3.1 cm Index 1.4 cm/m LV%fs 18.5 % LV Mass 301.3 g (122-174) IVSd 1.1 cm LVM Index 139.5 g/m2 LVPWd 1 cm RWT 0.3 LA Ds 4.6 cm LVOT 1.9 cm LV EF SinglePlane LV Ad 53 cm2 (9.5-22.3) LVESV 163.5 ml Index 75.7 ml/m LVEDV 235.2 ml (65-193) Index 108.9 ml/m LV SV 71.7 ml LV As 43.4 cm2 (4-11.6) LV EF 30.5 % (63-77) LA Sng Plane LA Area 27.4 cm2 (8.8-23.4) LA Vol 94.9 ml Index 44 ml/m LA LngAx 6.7 cm RA Sng Plane RA Area 28.3 cm2 (8.3-19.5) RA Vol 105.8 ml Index 49 ml/m RA LngAx 6.3 cm DOPPLER AV For Flow/LEANDRA AV pkVel 233.9 cm/s (100-170) AV AC/ET 0.3 AV mnVel 151.4 cm/s AV TVI 44.1 cm AV pkPG 21.9 mmHg AVpkAcRt 5395.9 cm/s2 AV Mean G 11.2 mmHg AV DeRt 802.1 cm/s2 AV AC 97 msec (83-118) AV Area 1.5 cm2 (3-5) AV ET 292 msec LVOT For Flow LVOT Area 3.1 cm2 LVOT SV 64.6 ml LVOTpkVel 90.3 cm/s HR 59.9 bpm LVOTpkPG 3.3 mmHg LVOT CO 3.9 l/min LVOTmnPG 2 mmHg LVOT CI 1.8 l/m/m2 LVOT TVI 20.6 cm MV For Flow/Valve Assess MV pkVel 131 cm/s MV Mean G 1.8 mmHg MV pkPG 6.9 mmHg MV TVI 32.5 cm Signed 08/16/2017 02:48 PM Jeremiah Lazo M.D. * Blood culture, aerobic & anaerobic (08/15/2017 12:05 PM) Component Value Ref Range Blood culture isolate No growth after 5 days of incubation. Comment: Specimen Information Specimen Source: Blood Specimen Site: [facility] Specimen Performing Laboratory Blood [facility] DEPARTMENT OF PATHOLOGY AND GENOMIC MEDICINE [address] [place] [address] * Bedside glucose (07/12/2017 10:29 AM) Only the most recent of 2 results within the time period is included. Component Value Ref Range POC glucose 253 Specimen Performing Laboratory Blood * Glucose level (07/12/2017 7:51 AM) Only the most recent of 2 results within the time period is included. Component Value Ref Range Glucose 364 (H) 65 - 99 mg/dL Specimen Performing Laboratory Plasma specimen [facility] DEPARTMENT OF PATHOLOGY AND GENOMIC MEDICINE [address] [place] [address] * XR Abdomen 1 Vw Portable (07/04/2017 9:45 AM) Only the most recent of 2 results within the time period is included. Specimen [facility] [address] [place], [place] [id number] Narrative Examination:XR ABDOMEN 1 VW PORTABLE Clinical history:"ABDOMINAL PAIN" Comparison: 01/30/2017 IMPRESSION: Right lateral abdomen is excluded from pars of these films. Vascular calcifications are seen. Surgical clips are seen in the right groin. The bowel gas pattern is nonspecific.There is no evidence of acute disease within the imaged portions of both lung bases. The imaged bones appear to be within normal limits. [facility]-[id number] Procedure Note [facility], Radiology Results Incoming - 07/04/2017 9:56 AM BASEBALL COACH Examination: XR ABDOMEN 1 VW PORTABLE Clinical history: "ABDOMINAL PAIN" Comparison: 01/30/2017 IMPRESSION: Right lateral abdomen is excluded from pars of these films. Vascular calcifications are seen. Surgical clips are seen in the right groin. The bowel gas pattern is nonspecific. There is no evidence of acute disease within the imaged portions of both lung bases. The imaged bones appear to be within normal limits. [id number] * Arterial blood gas, pulmonary func dept (07/04/2017 9:06 AM) Component Value Ref Range pH, arterial 7.414 7.350 - 7.450 units pCO2, arterial 41.3 35.0 - 45.0 mmHg pO2, arterial 119.0 (H) 80.0 - 90.0 mmHg O2 saturation, arterial 98.9 95.0 - 100.0 % Base excess, arterial 1.6 -2.0 - 2.0 mEq/L Bicarbonate 26.4 21.0 - 28.0 mEq/L O2 content 15.8 VOL% FiO2, inspired O2% 21.0 % Carboxyhemoglobin 1.0 0.0 - 1.4 % Comment: Reference Ranges: Carboxyhemoglobin Non smoker: 0.0 - 2.0% Smoker: 2.1 - 5.0% Heavy smoker: 5.1 - 9% Methemoglobin 1.0 0.0 - 1.0 % Hemoglobin, blood gas 11.5 (L) 14.0 - 18.0 g/dL Specimen Performing Laboratory Blood [facility] DEPARTMENT OF PATHOLOGY AND GENOMIC MEDICINE [address] [place] [id number] * Continuous EEG monitoring (06/10/2017 11:26 AM) Narrative CONTINUOUS VIDEO-EEG MONITORING REPORT Patient Name: Dameon Faye Date of : 1950 Gender: male Start Date: 06/10/17 Start Time: 00:00 End Date: 06/10/17 End Time: 10:57 Indication Seizures Technical Summary Technique:Modified international 10/20 system of EEG electrode placement was used. Visual Analysis of EEG-Video Monitoring:This electroencephalogram was recorded simultaneously with video throughout the monitoring. The EEG was visually inspected and analyzed for characterization of the background activity in all awake and sleep states, abnormal focal and generalized features, and intraictal and ictal epileptiform activity. Electrical seizure activity was correlated with the patients clinical activity recorded on video and video captured clinical events were correlated with simultaneously recorded EEG activity. Computer Analysis of EEG Waveforms:The EEG underwent continuous computerized digital spectral analysis, which consisted of real time detection of electrical events that could be considered epileptiform. All electrographic events identified by the detection program were visually inspected in order to assess the waveform characteristics and significance of these electrographic events. All intraictal and ictal epileptiform events are described further below with additional details of the visual analysis of the EEG. Events detected by computer analysis that were not determined by visual analysis to be epileptiform were considered to be myogenic, biologic, mechanical, or electrical artifact in origin. Only computer detected events that have been verified by visual inspection to be interictal or ictal epileptiform discharges are reported below and considered in the final report of this monitoring study. Findings Awake Recording:The occipital dominant rhythm is 9 Hz. 18-22 Hz activity is present in all regions. Sleep Recording: No sleep was recorded. Hyperventilation: Not performed. Photic Stimulation:Not performed. Impression The background activity is within the range of normal variation. No lateralized or epileptiform activity was recorded. ICD-10 Code: R569 * Continuous EEG monitoring (06/10/2017 8:57 AM) Narrative CONTINUOUS VIDEO-EEG MONITORING REPORT Patient Name: Dameon Faye Date of : 1950 Gender: male Start Date: 06/09/17 Start Time: 10:53 End Date: 06/09/17 End Time: 14:37 Indication Seizures Technical Summary Technique:Modified international 10/20 system of EEG electrode placement was used. Visual Analysis of EEG-Video Monitoring:This electroencephalogram was recorded simultaneously with video throughout the monitoring. The EEG was visually inspected and analyzed for characterization of the background activity in all awake and sleep states, abnormal focal and generalized features, and intraictal and ictal epileptiform activity. Electrical seizure activity was correlated with the patients clinical activity recorded on video and video captured clinical events were correlated with simultaneously recorded EEG activity. Computer Analysis of EEG Waveforms:The EEG underwent continuous computerized digital spectral analysis, which consisted of real time detection of electrical events that could be considered epileptiform. All electrographic events identified by the detection program were visually inspected in order to assess the waveform characteristics and significance of these electrographic events. All intraictal and ictal epileptiform events are described further below with additional details of the visual analysis of the EEG. Events detected by computer analysis that were not determined by visual analysis to be epileptiform were considered to be myogenic, biologic, mechanical, or electrical artifact in origin. Only computer detected events that have been verified by visual inspection to be interictal or ictal epileptiform discharges are reported below and considered in the final report of this monitoring study. Findings Awake Recording: The occipital dominant rhythm is 9 Hz. 18-22 Hz activity is present in all regions. Sleep Recording:No sleep was recorded. Hyperventilation: Not performed. Photic Stimulation: Not performed. Impression The background activity is within the range of normal variation. No lateralized or epileptiform activity was recorded. ICD-10 Code: R569 * CTA Head W Wo Contrast (06/09/2017 4:54 PM) Specimen Performing Laboratory [address] [address] Narrative EXAMINATION: CT ANGIOGRAM HEAD W WO CONTRAST CLINICAL HISTORY: Stroke COMPARISON:Head CTs performed on June 08, 2017. TECHNIQUE:Imaging of the intracranial circulation was obtained from the skull base to the vertex during the arterial phase of enhancement. Postprocessing was performed with MIP multiplanar and 3D reconstructed images. CT imaging was performed with iterative reconstruction technique and/or automated exposure control to reduce radiation dose. FINDINGS: The major dural sinuses are opacified normally. Soft tissue shows no evidence of laceration or hematoma. No hemodynamically significant stenosis is identified in the supraclinoid intracranial internal carotid arteries, middle cerebral arteries, anterior cerebral arteries, intracranial vertebral arteries, basilar artery or posterior cerebral arteries. There is no aneurysmal dilatation or vascular malformation of the pilot point of [place]. The intradural right vertebral artery is larger in caliber than the left. There are vascular calcifications along the cavernous segments of both internal carotid arteries and intradural vertebral arteries. Incidentally, there is extensive calcified atherosclerotic plaque formation involving both carotid bifurcations and carotid bulbs. There is no air-fluid level in the sinuses. Osseous calvarium is intact. IMPRESSION: 1. No hemodynamically significant narrowing of the [place] vessels. 2. Intracranial atherosclerotic disease, with vascular calcifications noted along the cavernous segments of both internal carotid arteries and intradural vertebral arteries. [facility]-[id number] Procedure Note Hm Interface, Radiology Results Incoming - 06/09/2017 5:10 PM BASEBALL COACH EXAMINATION: CT ANGIOGRAM HEAD W WO CONTRAST CLINICAL HISTORY: Stroke COMPARISON: Head CTs performed on June 08, 2017. TECHNIQUE: Imaging of the intracranial circulation was obtained from the skull base to the vertex during the arterial phase of enhancement. Postprocessing was performed with MIP multiplanar and 3D reconstructed images. CT imaging was performed with iterative reconstruction technique and/or automated exposure control to reduce radiation dose. FINDINGS: The major dural sinuses are opacified normally. Soft tissue shows no evidence of laceration or hematoma. No hemodynamically significant stenosis is identified in the supraclinoid intracranial internal carotid arteries, middle cerebral arteries, anterior cerebral arteries, intracranial vertebral arteries, basilar artery or posterior cerebral arteries. There is no aneurysmal dilatation or vascular malformation of the pilot point of [place]. The intradural right vertebral artery is larger in caliber than the left. There are vascular calcifications along the cavernous segments of both internal carotid arteries and intradural vertebral arteries. Incidentally, there is extensive calcified atherosclerotic plaque formation involving both carotid bifurcations and carotid bulbs. There is no air-fluid level in the sinuses. Osseous calvarium is intact. IMPRESSION: 1. No hemodynamically significant narrowing of the pilot point of [place] vessels. 2. Intracranial atherosclerotic disease, with vascular calcifications noted along the cavernous segments of both internal carotid arteries and intradural vertebral arteries. [id number] * CTA Neck W Wo Contrast (06/09/2017 4:27 PM) Specimen Performing Laboratory [facility] [address] [place] [address] Narrative EXAMINATION:CT ANGIOGRAM NECK W WO CONTRAST CLINICAL HISTORY:Stroke COMPARISON:None. TECHNIQUE: Neck CTA with multi-planar MIP and volumetric rendering (3D) after bolus intravenous iodinated contrast administration was performed. All CT images were acquired using low-dose technique with automated exposure control. FINDINGS: There is normal contrast enhancement of the aortic arch and its proximal branch arteries with no significant stenosis or occlusion. There is dense calcified atherosclerotic disease with about 60% narrowing of the right carotid bulb/proximal ICA according to the NASCET criteria. Calcified atherosclerotic moderate narrowing with about 60% narrowing is seen in the middle third of the left common carotid artery. There is dense calcified atherosclerotic disease with about more than 70% narrowing of the left carotid bulb/proximal ICA according to the NASCET criteria. There is normal contrast enhancement with no significant stenosis or occlusion along bilateral vertebral arteries. The rightvertebral artery is dominant. No significant cervical spondylosis is appreciated. The lung apices are unremarkable. There is bilateral small pleural effusion. IMPRESSION: Severe calcified atherosclerotic narrowing of the left carotid bifurcation with more than 70% luminal narrowing. Moderate calcified atherosclerotic narrowing with about 60% narrowing of the right carotid bifurcation. [id number] Procedure Note Hm Interface, Radiology Results Incoming - 06/09/2017 5:08 PM BASEBALL COACH EXAMINATION: CT ANGIOGRAM NECK W WO CONTRAST CLINICAL HISTORY: Stroke COMPARISON: None. TECHNIQUE: Neck CTA with multi-planar MIP and volumetric rendering (3D) after bolus intravenous iodinated contrast administration was performed. All CT images were acquired using low-dose technique with automated exposure control. FINDINGS: There is normal contrast enhancement of the aortic arch and its proximal branch arteries with no significant stenosis or occlusion. There is dense calcified atherosclerotic disease with about 60% narrowing of the right carotid bulb/proximal ICA according to the NASCET criteria. Calcified atherosclerotic moderate narrowing with about 60% narrowing is seen in the middle third of the left common carotid artery. There is dense calcified atherosclerotic disease with about more than 70% narrowing of the left carotid bulb/proximal ICA according to the NASCET criteria. There is normal contrast enhancement with no significant stenosis or occlusion along bilateral vertebral arteries. The right vertebral artery is dominant. No significant cervical spondylosis is appreciated. The lung apices are unremarkable. There is bilateral small pleural effusion. IMPRESSION: Severe calcified atherosclerotic narrowing of the left carotid bifurcation with more than 70% luminal narrowing. Moderate calcified atherosclerotic narrowing with about 60% narrowing of the right carotid bifurcation. [id number] * Echocardiogram complete w contrast and 3D if needed (06/09/2017 4:14 PM) Specimen Performing Laboratory [facility] [address] [place] [address] Narrative Echocardiography Report [address] [place] [address] Pat.Name:DAMEON FAYE.ID:[id number] .Date: 06/09/2017 Refer.MD:GUCCI GRAMAJO MD Exam Time: 2:07:00 PMStudy Type:Routine Echo Height:68inWeight:238lb BSA: 2.2 j9FHJUav:1949,67Y Sex: MALEBP: 118/59 HR:63 bpm Sonogrphr: Wen Matson RIOS Pat. Stat.:Inpatient Room:[place] [address] Study Status:Final Echo Event ID:[id number] Order ID:[id number] Reason for Study:Stroke History / Clinical:Chest pain, HYPERTENSION, HYPERLIPIDEMIA, DIABETES, Coronary Artery Disease, Shortness of Breath, Valvular Heart Disease; Aortic Stenosis, Edema, Obesity Procedures:2D Echo, Colorflow Doppler, Portable, Intravenous Optison Contrast Race:C SUMMARY: Mechanical aortic valve with normal function. LV size is moderately enlarged. LV EF is moderately to severely depressed. Estimated PA systolic pressure is 35 mmHg, assuming a mean RAP of 5 mmHg. FINDINGS: LV: LV size is moderately enlarged. LV EF is moderately to severelydepressed. Overall wall motion is hypokinetic. EstimatedEF is 30-34%. RV: RV size is normal. A pacemaker wire is seen in the RV. RV systolicfunction is moderately depressed. LA: LA volume is moderately enlarged. RA: RA volume is enlarged. A pacemaker wire is seen. AO: Aortic root diameter is normal. ELISHA: No pericardial effusion. AV: Mechanical aortic valve. Normal prosthetic valve velocity andgradient. Surgical Prosthetic AV Doppler velocity index is0.36 (normal>0.25). MV: Moderate mitral annular calcification. Thickened and/or calcifiedchordae. Mild to moderate mitral regurgitation. PV: Pulmonic valve not well seen. Mild pulmonic regurgitation. TV: No structural TV abnormalities noted. Aguirre: RV relaxation is impaired. Other:Estimated PA systolic pressure is 35 mmHg, assuming a mean RAPof 5 mmHg. MEASUREMENTS: 2D Parasternal Long [place] LA Ds5 cmAo Rtd 2.8 cm Index1.3 cm/m LVOT 1.9 cm LV Rctk185.5 g(122-174) LVIDd6.4 cmIndex 2.9 cm/m LVM Zbegn564 g/m2 IVSd 1.5 cmRWT 0.4 LVPWd1.1 cm LV EF SinglePlane LV Ad 50.5 cm2(9.5-22.3) LVESV 143.3 ml Index65.1 ml/m FFIQV580.1 ml (65-193) Index98.7 ml/m LV SV 73.8 ml LV As 40.2 cm2(4-11.6) LV EF 34 %(63-77) LA Sng Plane LA Area 27.2 cm2(8.8-23.4) LA Vol98.8 ml Index44.9 ml/m LA LngAx 6.5 cm DOPPLER AV For Flow/LEANDRA AV pkVel 289.8 cm/s (100-170) AV AC/ET 0.2 AV mnVel 184.5 cm/Yamile TVI 59.3 cm AV pkPG 33.6 mmHgAVpkAcRt 49870.2 cm/s2 AV Mean G 17 mmHgAV DeRt 902 cm/s2 AV AC 73 msec (83-118) AV Area 1 cm2(3-5) AV ET321 msec LVOT For Flow HR58.9 bpm LVOTpkPG 4.7 mmHg LVOT CO2.6 l/min LVOTmnPG 1.9 mmHg LVOT CI1.2 l/m/m2LVOT TVI 21.3 cm LVOT Area2.8 cm2 LVOT SV 60.5 ml [id number] cm/s Signed 06/09/2017 06:41 PM Jeremiah Lazo M.D. Procedure Note Interface, Radiology Results In - 06/09/2017 6:49 PM BASEBALL COACH Echocardiography Report [address] [id number] Pat.Name: DAMEON FAYE.ID: [id number] St.Date: 06/09/2017 Refer.MD: GUCCI GRAMAJO MD Exam Time: 2:07:00 PM Study Type:Routine Echo Height: 68in Weight: 238lb BSA: 2.2 m2 Age: 4 1950,67Y Sex: MALE BP: 118/59 HR: 63 bpm Sonogrphr: Wen Matson RDCS Pat. Stat.:Inpatient Room: [place] [address] Study Status:Final Echo Event ID:[id number] Order ID: [id number] Reason for Study:Stroke History / Clinical:Chest pain, HYPERTENSION, HYPERLIPIDEMIA, DIABETES, Coronary Artery Disease, Shortness of Breath, Valvular Heart Disease; Aortic Stenosis, Edema, Obesity Procedures:2D Echo, Colorflow Doppler, Portable, Intravenous Optison Contrast Race: C SUMMARY: Mechanical aortic valve with normal function. LV size is moderately enlarged. LV EF is moderately to severely depressed. Estimated PA systolic pressure is 35 mmHg, assuming a mean RAP of 5 mmHg. FINDINGS: LV: LV size is moderately enlarged. LV EF is moderately to severely depressed. Overall wall motion is hypokinetic. Estimated EF is 30-34%. RV: RV size is normal. A pacemaker wire is seen in the RV. RV systolic function is moderately depressed. LA: LA volume is moderately enlarged. RA: RA volume is enlarged. A pacemaker wire is seen. AO: Aortic root diameter is normal. ELISHA: No pericardial effusion. AV: Mechanical aortic valve. Normal prosthetic valve velocity and gradient. Surgical Prosthetic AV Doppler velocity index is 0.36 (normal>0.25). MV: Moderate mitral annular calcification. Thickened and/or calcified chordae. Mild to moderate mitral regurgitation. PV: Pulmonic valve not well seen. Mild pulmonic regurgitation. TV: No structural TV abnormalities noted. Aguirre: RV relaxation is impaired. Other: Estimated PA systolic pressure is 35 mmHg, assuming a mean RAP of 5 mmHg. MEASUREMENTS: 2D Parasternal Long [place] LA Ds 5 cm Ao Rtd 2.8 cm Index 1.3 cm/m LVOT 1.9 cm LV Mass 389.5 g (122-174) LVIDd 6.4 cm Index 2.9 cm/m LVM Index 177 g/m2 IVSd 1.5 cm RWT 0.4 LVPWd 1.1 cm LV EF SinglePlane LV Ad 50.5 cm2 (9.5-22.3) LVESV 143.3 ml Index 65.1 ml/m LVEDV 217.1 ml (65-193) Index 98.7 ml/m LV SV 73.8 ml LV As 40.2 cm2 (4-11.6) LV EF 34 % (63-77) LA Sng Plane LA Area 27.2 cm2 (8.8-23.4) LA Vol 98.8 ml Index 44.9 ml/m LA LngAx 6.5 cm DOPPLER AV For Flow/LEANDRA AV pkVel 289.8 cm/s (100-170) AV AC/ET 0.2 AV mnVel 184.5 cm/s AV TVI 59.3 cm AV pkPG 33.6 mmHg AVpkAcRt 52012.2 cm/s2 AV Mean G 17 mmHg AV DeRt 902 cm/s2 AV AC 73 msec (83-118) AV Area 1 cm2 (3-5) AV ET 321 msec LVOT For Flow HR 58.9 bpm LVOTpkPG 4.7 mmHg LVOT CO 2.6 l/min LVOTmnPG 1.9 mmHg LVOT CI 1.2 l/m/m2 LVOT TVI 21.3 cm LVOT Area 2.8 cm2 LVOT SV 60.5 ml LVOTpkVel 108.5 cm/s Signed 06/09/2017 06:41 PM Jeremiah Lazo M.D. * Pv duplex arterial lower extremity (06/09/2017 11:33 AM) Specimen Performing Laboratory [facility] [address] [place] [address] Narrative Vascular Ultrasound Laboratory Lower Extremity Arterial Duplex Report [address] [place] [address] Pat.Name:DAMEON FAYE.ID:[id number] .Date: 06/09/2017 Refer.MD:ANGELINA ORO MD Exam Time: 9:59:00 AMStudy Type:LE Arterial DOBAge:1950,67Y Sex: MALE Sonogrphr: Orville Shabazz RDMS, RVTPat. Stat.:Inpatient Room:[place] [address] TapeVol: ST, CPT - 4: [address] Echo Event ID:[id number] Order ID:[id number] Reason for Study:History of intervention on left groin. Suspected pseudoaneurysm at site. Race:C SUMMARY: DUPLEX SCAN OBSERVATIONS: LEFT:Focally elevated velocities and turbulent flow noted in the left proximal common femoral artery. Artery appears to be calcified. Visualization and patency is noted throughout the common femoral, femoral, and profunda arteries and veins. PRELIMINARY FINDINGS: 1.Focal aliasing with a detectable bruit in the left common femoral artery; however, velocities appear to be consistent throughout. 2.No evidence of a pseudoaneurysm, hematoma, or arteriovenous fistula noted. Order was originally placed for the right side, however, visualization of the right groin (topically) was clear of any puncture wounds. It was confirmed with Josh, RN that the physician meant to order the left side. Order was changed with co-sign required. PHYSICIAN INTERPRETATION: 1.Duplex scan of the left groin demonstrates no evidenceof aneurysm, hematoma or AVF. Signed 06/09/2017 05:53 PM Ezequiel Euceda MD Procedure Note Interface, Radiology Results In - 06/09/2017 5:53 PM [facility] Vascular Ultrasound Laboratory Lower Extremity Arterial Duplex Report [address] [place] [address] Pat.Name: DAMEON FAYE Allyn.ID: [id number] .Date: 06/09/2017 Refer.MD: ANGELINA ORO MD Exam Time: 9:59:00 AM Study Type:LE Arterial Age: 4 1950,67Y Sex: MALE Sonogrphr: Orville Shabazz RDMS, RVT Pat. Stat.:Inpatient Room: [address] Vol: , [facility] - 4: [address] Echo Event ID:[id number] Order ID: [id number] Reason for Study:History of intervention on left groin. Suspected pseudoaneurysm at site. Race: C SUMMARY: DUPLEX SCAN OBSERVATIONS: LEFT: Focally elevated velocities and turbulent flow noted in the left proximal common femoral artery. Artery appears to be calcified. Visualization and patency is noted throughout the common femoral, femoral, and profunda arteries and veins. PRELIMINARY FINDINGS: 1. Focal aliasing with a detectable bruit in the left common femoral artery; however, velocities appear to be consistent throughout. 2. No evidence of a pseudoaneurysm, hematoma, or arteriovenous fistula noted. Order was originally placed for the right side, however, visualization of the right groin (topically) was clear of any puncture wounds. It was confirmed with ANGELIKA Moreno that the physician meant to order the left side. Order was changed with co-sign required. PHYSICIAN INTERPRETATION: 1. Duplex scan of the left groin demonstrates no evidence of aneurysm, hematoma or AVF. Signed 06/09/2017 05:53 PM Ezequiel Euceda MD * EEG (routine) - Baseline EEG (06/09/2017 10:41 AM) Narrative EEG AWAKE AND DROWSY Date of Service: 06/09/17 Awake Recording: The occipital dominant rhythm is 9 Hz. 18-22 Hz activity is present in all regions. Sleep Recording:No sleep was recorded. Hyperventilation: Not performed. Photic Stimulation: Not performed. Impression The background activity is within the range of normal variation. No lateralized or epileptiform activity was recorded. ICD-10 Code: R569 * Cv pacemaker defib or ilr interrogation (06/09/2017 8:24 AM) Specimen Performing Laboratory [facility] [address] [place] [id number] * Folate level (06/09/2017 1:07 AM) Component Value Ref Range Folate 9.7 4.8 - 24.2 ng/mL Specimen Performing Laboratory Serum [facility] DEPARTMENT OF PATHOLOGY AND GENOMIC MEDICINE [address] [place] [phone] * Vitamin B12 level (06/09/2017 1:07 AM) Component Value Ref Range Vitamin B12 1,022 (H) 211 - 946 pg/mL Comment: Significant overlap exists between normal and deficiency states. However, most patients with deficiencies will have Serum B12 <200 pg/mL. Specimen Performing Laboratory Serum [facility] DEPARTMENT OF PATHOLOGY AND GENOMIC MEDICINE [address] [place] [address] * CT Stroke Brain Wo Contrast (06/08/2017 2:25 PM) Specimen Performing Laboratory [facility] [address] [place] [address] Narrative EXAMINATION: CT STROKE BRAIN WO CONTRAST CLINICAL HISTORY: Change in neuro exam COMPARISON:None TECHNIQUE: Noncontrast enhanced images of the brain were obtained from the skull base to the vertex. Both soft tissue and bone reconstruction algorithms were performed.CT imaging was performed with iterative reconstruction technique and/or automated exposure control to reduce radiation dose. FINDINGS: The brain parenchyma has no acute lesion. The zheng-white matter differentiation is preserved. No evidence of acute intra or extra-axial hemorrhage, mass, mass effect or acute territorial infarction. There is no acute hydrocephalus. Basal cisterns are patent. There are atherosclerotic calcifications in the carotid siphons and vertebral arteries. Sulci and ventricles are prominent from age-related volume loss. There are some scattered lucencies in the white matter from small vessel changes. No acute soft tissue hematoma or laceration. Paranasal sinuses shows no acute air-fluid levels. Mastoid air cells are clear.No skull fractures or aggressive bony lesions. IMPRESSION: There are involutional changes as detailed above with no acute intracranial abnormality. Findings were discussed with the nurse in charge of the patient, nurse Akhtar at 06/08/2017 2:26 PM who verbalized understanding. [facility]-[id number] Procedure Note Hm Interface, Radiology Results Incoming - 06/08/2017 2:36 PM BASEBALL COACH EXAMINATION: CT STROKE BRAIN WO CONTRAST CLINICAL HISTORY: Change in neuro exam COMPARISON: None TECHNIQUE: Noncontrast enhanced images of the brain were obtained from the skull base to the vertex. Both soft tissue and bone reconstruction algorithms were performed. CT imaging was performed with iterative reconstruction technique and/or automated exposure control to reduce radiation dose. FINDINGS: The brain parenchyma has no acute lesion. The zheng-white matter differentiation is preserved. No evidence of acute intra or extra-axial hemorrhage, mass, mass effect or acute territorial infarction. There is no acute hydrocephalus. Basal cisterns are patent. There are atherosclerotic calcifications in the carotid siphons and vertebral arteries. Sulci and ventricles are prominent from age-related volume loss. There are some scattered lucencies in the white matter from small vessel changes. No acute soft tissue hematoma or laceration. Paranasal sinuses shows no acute air-fluid levels. Mastoid air cells are clear. No skull fractures or aggressive bony lesions. IMPRESSION: There are involutional changes as detailed above with no acute intracranial abnormality. Findings were discussed with the nurse in charge of the patient, nurse Akhtar at 06/08/2017 2:26 PM who verbalized understanding. [facility]-[id number] * Cv invasive peripheral vascular procedure (06/07/2017 12:21 PM) Specimen Performing Laboratory [facility] [address] [place] [address] Narrative Peripheral CATHETERIZATION PROCEDURE NOTE PREOPERATIVE DIAGNOSIS 1.Peripheral Arterial Disease 2.Critical Limb Ischemia POSTOPERATIVE DIAGNOSIS 1.Peripheral Arterial Disease 2.Critical Limb Ischemia PROCEDURES PERFORMED 1.Contralateral right Femoral Angiography 2.Percutaneous Angioplasty of right posterior tibial artery with 3.0x15mm coronary balloon 3.Ipsilateral left Femoral Angiography EQUIPMENT ASSOCIATE Dr. Gucci Gramajo, Mold Yard Supervisor FLOOR MECHANIC Liam Cruz MD ANESTHESIA USED Local 2% lidocaine, Conscious Sedation DESCRIPTION OF PROCEDURE The procedure was described to the patient including benefits, risks, and alternatives to the procedure.The patient confirmed understanding and signed the informed consent.The patient was brought to labor mediator, room 3 of [facility].Patient was prepped and draped in sterile fashion. Conscious sedation provided to patient throughout procedure with appropriate monitoring. The left common femoral artery (MANAGER NET) was palpated and the region above the artery was anesthetized with 2% local lidocaine.Using 18-gauge AMC needle and fluoroscopic guidance, arterial access was obtained in the left MANAGER NET and a 6F sheath was placed without difficulty. A 6F diagnostic Pigtail was advanced over a Wholey wire to the infrarenal aorta.The Wholey wire was then advanced usingPigtail to the contralateral right iliac artery. We then performed a diagnostic contralateral right superficial femoral artery angiogram with runoffs. A severe lesion was identified in the posterior tibial artery. The short sheath was then switched to a6F 45 cm [place] destination sheath over the Wholey wire. A Hi-Torque floppy XS was then used to wire the posterior tibial artery. A 3.0x15mm semi-compliant coronary balloon was then taken over the wire to the level of the stenosis and serially dilated at 6-8atm.Final angiography showed improved vessel patency with no evidence of dissection or perforation.Interventional equipment was then removed and the destination sheath was exchanged for 10cm 7F sheath over the Wholey wire. Ipsilateral left femoral angiography showed occluded anterior tibial and peroneal arteries with a patent bypass graft to the posterior tibial The patient was sent to the holding area in stable condition.The patient was hemodynamically stable throughout the entirety of the procedure.He will be under observation overnight for IV hydration. DISPOSITION: Return patient to nursing unit and monitor for groin complications. EBL: <30 mL CONDITION:Stable COMPLICATIONS: None Liam Cruz MD 06/07/2017 12:35 PM Admission (Discharged) on 06/07/2017 Detailed Report * CV stress test (03/08/2017 3:15 PM) Component Value Ref Range Resting HR 69 Resting BP 133 Peak MET Achieved 1.0 Protocol Name REGADENO Time in Exercise Phase 00:01:00 Max Systolic BP 145 Max Diastolic BP 69 Max Heart Rate 85 Max Predicted Heart Rate 151 Target HR Formula (220 - Age)*100% Test Indication Evaluation vent. Function Stress Test Impression -Waveform interpreted in report associated with image study. No interpretation is provided as part of this Stress ECG report.-Electronically Signed By Elpidio WYLIE, Bharta Braxton ([id number]), news videotape editor Chito Norman ([id number]) on 03/08/2017 2:47:09 PM Target HR 128.35 bpm Specimen Performing Laboratory [facility] MUSE [address] [place] [address] * US Gallbladder (03/07/2017 7:30 PM) Specimen Performing Laboratory [facility] [address] [place] [address] Narrative EXAMINATION:US GALLBLADDER CLINICAL HISTORY:CHOLELITHIASIS, portable COMPARISON:None. FINDINGS: Gallbladder: There are small, dependent echogenic foci within the gallbladder that doesn't demonstrate significant shadowing. These most likely represent gallbladder sludge or small gallstones. The gallbladder wall is not thickened and there is no pericholecystic fluid. CBD: 5 mm, which is within normal limits. Portal vein: The portal vein demonstrates normal hepatopetal flow. Liver: The visualized portions of liver are unremarkable. IMPRESSION: Gallbladder sludge versus small layering gallstones. There is no evidence of acute cholecystitis. [facility]-[id number] Procedure Note Interface, Radiology Results Incoming - 03/07/2017 8:05 PM CDT EXAMINATION: US GALLBLADDER CLINICAL HISTORY:CHOLELITHIASIS, portable COMPARISON: None. FINDINGS: Gallbladder: There are small, dependent echogenic foci within the gallbladder that doesn't demonstrate significant shadowing. These most likely represent gallbladder sludge or small gallstones. The gallbladder wall is not thickened and there is no pericholecystic fluid. CBD: 5 mm, which is within normal limits. Portal vein: The portal vein demonstrates normal hepatopetal flow. Liver: The visualized portions of liver are unremarkable. IMPRESSION: Gallbladder sludge versus small layering gallstones. There is no evidence of acute cholecystitis. [facility]-[id number] * Cv labor mediator procedure (01/31/2017 11:00 AM) Specimen Performing Laboratory [facility] [address] [place] [address] Narrative Cardiac Catheterization Operative Note Dameon Faye,[id number] 67 y.o. male 01/27/2017 - 01/31/2017; [facility] CATHLAB 3 Procedure(s): Cv selective angiography bypass graft Cv pci- left main Cv selective coronary angiography Tolerated procedure well Condition: stable Complications:None; patient tolerated the procedure well. 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 He has a LOTT to LAD patent. Procedure Details Patient was brought to the labor mediator. A 6Fr sheath was placed in left common femoral artery. The Left main had a 90% in stent restenosis into LCX. His LOTT to LAd was patent. His RCA was moderately and diffusely diseased. He had angioplasty and stent to LM with a 4.5x12 stent. It was post dilated with a 5x12 balloon. Pre 90% post 0%. Pre-op Diagnosis: Chest pain/unstable angina * No Diagnosis Codes entered * Surgeon(s) and Role: * Gucci Gramajo MD - Primary Anesthesia: Anesthesia type not filed in the log. Blood Products Administered:none Estimated Blood Loss: 25 mL Sheath/IV: Specimens: * No specimens in log * Grafts/Implants: Implant Name Type Inv. Item Serial No. Grinder And Plater Lot No. LRB No. Used Action STENT CORONARY BARE METAL REBEL OTW 4.50 MM X 12 MM - [id number] Coronary Stents STENT CORONARY BARE METAL REBEL OTW 4.50 MM X 12 MM [facility] INTERVENTIONAL CARDIOLOGY [id number] N/A 1 Implanted Gucci Gramajo MD Date: 01/31/2017Time: 11:18 AM ED to Hosp-Admission (Discharged) on 01/27/2017 Detailed Report * Urine eosinophils (01/28/2017 6:00 AM) Component Value Ref Range Eosinophils, urine NONE Specimen Performing Laboratory Urine [facility] DEPARTMENT OF PATHOLOGY AND GENOMIC MEDICINE [address] [place] [address] * Urea nitrogen, urine, random (01/28/2017 6:00 AM) Component Value Ref Range Urea nitrogen, urine, 384 mg/dL random Specimen Performing Laboratory Urine [facility] DEPARTMENT OF PATHOLOGY AND GENOMIC MEDICINE [address] [place] [address] * Sodium level, urine, random (01/28/2017 6:00 AM) Component Value Ref Range Sodium, urine, random 65 mEq/L Specimen Performing Laboratory Urine [facility] DEPARTMENT OF PATHOLOGY AND GENOMIC MEDICINE [address] [place] [address] * Protein, urine, random (01/28/2017 6:00 AM) Component Value Ref Range Protein, urine random 7 mg/dL Specimen Performing Laboratory Urine [facility] DEPARTMENT OF PATHOLOGY AND GENOMIC MEDICINE [address] [place] [address] * Creatinine level, urine, random (01/28/2017 6:00 AM) Component Value Ref Range Creatinine, urine, random 64 mg/dL Specimen Performing Laboratory Urine [facility] DEPARTMENT OF PATHOLOGY AND GENOMIC MEDICINE [address] [place] [address] * Chloride level, urine, random (01/28/2017 6:00 AM) Component Value Ref Range Chloride, urine, random 66 mEq/L Specimen Performing Laboratory Urine [facility] DEPARTMENT OF PATHOLOGY AND GENOMIC MEDICINE [address] [place] [address] * CRITICAL CARE (01/28/2017 5:17 AM) Narrative Scooter Damon DO 01/28/20175:17 AM Critical Care Performed by: SCOOTER DAMON Authorized by: SCOOTER DAMON Critical care provider statement: Critical care time (minutes):35 Critical care start time:01/27/2017 11:20 PM Critical care end time:01/27/2017 11:55 PM Critical care time was exclusive of:Separately billable procedures and treating other patients Critical care was necessary to treat or prevent imminent or life-threatening deterioration of the following conditions:Cardiac failure Critical care was time spent personally by me on the following activities:Blood draw for specimens, development of treatment plan with patient or surrogate, discussions with consultants, discussions with primary provider, evaluation of patient's response to treatment, examination of patient, interpretation of cardiac output measurements, obtaining history from patient or surrogate, ordering and performing treatments and interventions, pulse oximetry, ordering and review of laboratory studies, ordering and review of radiographic studies, re-evaluation of patient's condition and review of old charts after 10/30/2016 Insurance Payer Benefit Subscriber ID Type Phone Address Plan / Group MEDICARE MEDICARE xxxxxxxxxx Medicare [place], [place] PART A AND B AARP AARP xxxxxxxxxx Commercial SUPPLEMENT DAMEON FAYE Transplant Self 1950 Home: [address] [place] [address]
[2017-10-31] MEDS ORDERED: ONDANSETRON HCL INJ 2 MG/ML VIAL IV STA (10:25)
[2017-10-31] MEDS ORDERED: SODIUM CHLORIDE 0.9% 1000ML 1,000 ML IV STA ×2 (10:25→12:12)
[2017-10-31] MEDS ORDERED: MORPHINE SULFATE 2 MG/ML SYR IV STA ×2 (10:25→13:16)
[2017-10-31] MEDS ORDERED: ONDANSETRON HCL INJ 2 MG/ML VIAL IV PRN (10:30)
--- OUTSIDE RECORDS SUMMARY | 2017-10-31 10:36 | XMS REPORT | Clinical Summary ---
Author Author [facility] Organization [facility] Address Unknown Phone Unavailable Care Team Providers Care Jammer Operator Name Role Phone Dameon Purvis MD PCP [...] AV block, 3rd degree 05/24/2016 Non-ST elevation [place] (NSTEMI) 05/24/2016 [place] (acute kidney injury) 05/24/2016 [...] Gucci Gramajo MD Cv selective coronary angiography [16764 (CPT )] 09/19/2017 Procedure Pass Procedural Cardiology 09/15/2017 [facility] Cardiology Marbin De León NSTEMI (non-ST [...] failure (Primary Dx); Coronary artery disease involving [place] heart with angina pectoris, unspecified vessel or lesion type 09/05/2017 Documentation Transplant Carola Ventura RN Transplant Info Update 08/31/2017 [facility] Pulmonology Cami Han MD Chronic combined [...] Gucci Gramajo MD Cv right heart cath [04924 (CPT )] 08/18/2017 Telephone Transplant Truong Chung RN Referral - Heart Txp 08/15/2017 [facility] Cardiology Ailyn Fernandez MD Acute on chronic - Encounter Orville Steele MD congestive heart failure, 08/19/2017 unspecified congestive heart failure type (Primary Dx); Hypervolemia, unspecified hypervolemia type; AV block, 3rd degree; Non-ST elevation [place] (NSTEMI); [place] (acute kidney injury); Hx of CABG x 2; h/o Mechanical AVR; s/p Syncope and collapse; Fall, initial encounter; Heart burn; Hyperglycemia; Anemia in chronic illness; Warfarin-induced coagulopathy 07/11/2017 Hospital Cardiology uLz OroAngelina Alfaro MD Acute on chronic - [...] Cardiology Gucci Gramajo MD Cv arteriograms peripheral [05853 (CPT )] 03/07/2017 Emergency Cardiology Fuad Macdonald MD Unstable angina (Primary - Selvin Cheatham MD Dx) 03/09/2017 01/31/2017 Procedure Pass Procedural Cardiology 01/31/2017 Surgery Procedural Cardiology Gucci Gramajo MD Cv selective angiography bypass graft [19199 (CPT )] 01/27/2017 Hospital Cardiology Scooter Damon, [...] INFLUENZA VACCINE 03/01/2017 Implants Implanted Type Area Dining Room Busser Device Expiration Model / Identifier Date Serial / Lot 88cm Attain Ability Otw Lead, Model Cardiac N/A: N/A [employer] [facility] [id number] 88 / [id number], Dual-Electrode Left Pacing [employer] [id number] Ventricular - [id number] Leads or / Implanted: 05/28/2016 (Quantity not Electrodes [id number] on file) or Holly s Stent Cor Resolute Integrity Coronary N/A: N/A [employer] [facility] - 2016 [id number] Ztrlims-Eltng Otw 3.5x30mm - Stents VASCULAR W / [id number] / Implanted: 05/24/2016 (Quantity not [id number] on file) Stent Coronary Bare Metal Rebel Otw Coronary N/A: N/A [facility] 12/29/2017 [id number] 4.50 Mm X 12 Mm - [id number] Stents INTERVENTIONAL [id number] / Implanted: 01/31/2017 (Quantity not CARDIOLOGY / on file) [id number] Stent System 4.0 X 08mm Resolute Coronary N/A: N/A [employer] [facility] - [id number] [place] Otw Coronary - [id number] - Stents CARDIAC RYHTYM W / [id number] Implanted: Qty: 1 on 09/26/2017 by David / Gucci Gramajo MD [id number] Ltrevia Hf-T Df-4 High Energy W1th IPM N/A: N/A [employer] [id number] / Cls W1th Tl With Home CARDIAC [id number] / Monitoring&174; - [id number] DEFIB [id number] Implanted: 05/28/2016 (Quantity not on file) Sheath Attain Command Surevalve Lv IPM N/A: N/A [employer] CRM [id number] / - [id number] [employer] / Implanted: 05/28/2016 (Quantity not DEVICES on file) 6248v Attain Select Ii Catheters - IPM N/A: N/A [employer] CRM 6248V 90P [id number] [employer] / Implanted: 05/28/2016 (Quantity not DEVICES / on file) Protego S 60 - [id number] - IPM N/A: N/A [employer] 12/29/2017 [id number] / [id number] IMPLANT [id number] / Implanted: Qty: 1 on 05/28/2016 by DEVICES [id number] Dre Salmeron MD Catheter [id number] La 6f 100cm [id number] IPM N/A: N/A [employer] [id number] / - [id number] IMPLANT CARDIOVASCULAR / Implanted: 09/26/2017 (Quantity not DEVICES on file) Safesheath2 - [id number] IPM N/A: N/A [employer] CRM SS9 / [...] CDT procedure are in the COLOR DOPPLER (95832) results section. CV PCI STENT Routine 09/26/2017 Results for this 9:38 AM BINDERY LEADPERSON procedure are in the results section. CV SELECTIVE ANGIOGRAPHY Routine 09/26/2017 Results for this BYPASS GRAFT 9:38 AM BINDERY LEADPERSON procedure are in the results section. CV SELECTIVE CORONARY Routine 09/26/2017 Results for this ANGIOGRAPHY 9:38 AM BINDERY LEADPERSON procedure are in the results section. MT CRITICAL CARE, ADDL 30 Routine 09/15/2017 Results for this MIN 7:19 AM BINDERY LEADPERSON procedure are in the results section. MT CRITICAL CARE, E/M Routine 09/15/2017 Results for this 30-74 MINUTES 7:19 AM BINDERY LEADPERSON procedure are in the results section. CV RIGHT HEART CATH Routine 08/19/2017 Results for this 9:19 AM BINDERY LEADPERSON procedure are in the results section. ECHOCARDIOGRAM 2D Routine 08/16/2017 Results for this COMPLETE W MMODE SPECTRAL 10:02 AM BINDERY LEADPERSON procedure are in the COLOR DOPPLER (44615) results section. EEG CONTINUOUS WITH VIDEO STAT 06/10/2017 Results for this REDUCED SERVICE 11:26 AM BINDERY LEADPERSON procedure are in the results section. EEG VIDEO MONITORING STAT 06/10/2017 Results for this 8:57 AM BINDERY LEADPERSON procedure are in the results section. ECHOCARDIOGRAM 2D Routine 06/09/2017 Results for this COMPLETE W MMODE SPECTRAL 4:14 PM BINDERY LEADPERSON procedure are in the COLOR DOPPLER (12828) results section. EEG AWAKE/DROWSY LESS STAT 06/09/2017 Results for this THAN 41 MIN 10:41 AM BINDERY LEADPERSON procedure are in the results section. CV DEFIBRILLATOR Routine 06/09/2017 PROGRAMMING ML 8:24 AM BINDERY LEADPERSON CV STRESS TEST NUCLEAR Routine 03/08/2017 Results [...] CDT procedure are in the results section. MT CRITICAL CARE, E/M Routine 01/28/2017 Results for this 30-74 MINUTES 5:17 AM CDT procedure are in the results section. after 10/30/2016 Results * POC glucose (10/20/2017 7:56 AM) Only the most recent of 242 results within the time period is included. Component Value Ref Range POC glucose 120 (H) 65 - 99 mg/dL Comment: [facility] Notified RN Meter ID: [id number] Nurse Discharge: Praneeth Larry Specimen Performing Laboratory [facility] DEPARTMENT OF PATHOLOGY AND GENOMIC MEDICINE [address] [place] [address] * Estimated GFR (10/20/2017 4:29 AM) Only [...] and Americans. Specimen Performing Laboratory Plasma specimen [facility] DEPARTMENT OF PATHOLOGY AND GENOMIC MEDICINE [address] [place] [address] * Prothrombin time with INR (10/20/2017 4:29 [...] vein thrombosis/pulmonary embolism. Specimen Performing Laboratory Blood [facility] DEPARTMENT OF PATHOLOGY AND [facility] MEDICINE [address] [place] [address] * Anti Xa, unfractionated (10/20/2017 4:29 AM) Only the most recent of 33 results within the time period is included. Component Value Ref Range Anti Xa, unfractionated 0.66Comment: Therapeutic Range: 0.30 - 0.70 U/mL 0.30 - 0.70 U/mL Specimen Performing Laboratory Blood [facility] DEPARTMENT OF PATHOLOGY AND [facility] MEDICINE [address] [place] [address] * CBC with platelet and differential (10/20/2017 [...] (promyelocytes, myelocytes, metamyelocytes) Specimen Performing Laboratory Blood [facility] DEPARTMENT OF PATHOLOGY AND [facility] MEDICINE [address] [place] [address] * Basic metabolic panel (10/20/2017 4:29 AM) [...] 10.2 mg/dL Specimen Performing Laboratory Plasma specimen [facility] DEPARTMENT OF PATHOLOGY AND [address] [address] * Magnesium level (10/17/2017 3:30 AM) Only the most recent of 21 results within the time period is included. Component Value Ref Range Magnesium 2.1 1.6 - 2.4 mg/dL Specimen Performing Laboratory Plasma specimen [facility] DEPARTMENT OF PATHOLOGY AND [facility] MEDICINE [address] [place] [address] * Smear review (10/13/2017 5:39 AM) Only the most recent of 6 results within the time period is included. Component Value Ref Range Platelet slide review Michael slt decr Anisocytosis Moderate Polychromasia Moderate Ovalocytes Moderate Enlarged platelets Moderate (A) Specimen Performing Laboratory [facility] DEPARTMENT OF PATHOLOGY AND [facility] MEDICINE [address] [place] [address] * B natriuretic peptide (10/13/2017 5:39 AM) Only the most recent of 18 results within the time period is included. Component Value Ref Range BNP 1,794 (H) 0 - 100 pg/mL Specimen Performing Laboratory Blood [facility] DEPARTMENT OF PATHOLOGY AND [facility] MEDICINE [address] [place] [address] * Occult blood, stool (10/12/2017 1:30 PM) Component Value Ref Range Occult blood, stool Negative for occult blood. Comment: Specimen Information Specimen Source: Stool Specimen Site: Nonpreserved Specimen Performing Laboratory Stool - Nonpreserved [facility] OF PATHOLOGY AND [facility] MEDICINE [address] [place] [address] * CV stress test (10/12/2017 12:25 PM) [...] report.-Electronically Signed By Elpidio WYLIE, Bharat Braxton ([id number]), medical editor Chito Norman ([id number]) on 10/12/2017 1:41:28 PM Specimen Performing Laboratory [facility] MUSE [address] [place] [address] * Myocardial perfusion (10/12/2017 12:25 PM) Only the most recent of 2 results within the time period is included. Specimen Performing Laboratory [facility] [address] [place] [address] Narrative Nuclear Cardiology and Cardiac CT [address] [place] [address] Myocardial Perfusion Imaging Report Stress ECG tracings are available in [employer], X[employer]rus and CV Web All ECG interpretations are included in this report Pat.Name:DAMEON FAYE Pat.ID:[id number] .Date: 10/12/2017 Refer.MD:RJ ORO MD Exam Time: 11:28:00 AM Study Type:Myocardial Perfusion Imaging Height:68inWeight:215lb BSA: 2.11 m2 DOBAge:[age]Y Sex: MALEBP: 165/70 HR:78 bpmHCT: 33.8 % Nuclear Tech:SINDI MckeonMT, ARRT/Kwasi Velarde [facility] Pat. Stat.:Inpatient Room:D 101 Nuclear Event ID: [id number] Order ID:[id number] Reason for Study:Cardiomyopathy, Thallium viability History / [...] Defect Size (% LV) 32% Total 0% Zuhhdumu31% Scar Left Ventricular Perfusion Results There is [...] PM CDT Nuclear Cardiology and Cardiac CT [address] [place] [address] Myocardial Perfusion Imaging Report Stress ECG tracings are available in [facility], Xir[employer] and [employer] All ECG interpretations are included in this report Pat.Name: DAMEON FAYE Pat.ID: [id number] .Date: 10/12/2017 Refer.MD: RJ ORO MD Exam Time: 11:28:00 AM Study Type:Myocardial Perfusion Imaging Height: 68in Weight: 215lb BSA: 2.11 m2 Age: 6 1950,67Y Sex: MALE BP: 165/70 HR: 78 bpm HCT: 33.8 % Nuclear Tech:BUNNY Mckeon, [facility]ENTERPatria/BUNNY Harvey Pat. Stat.:Inpatient Room: [address] Nuclear Event ID:[id number] Order ID: [id number] Reason for Study:Cardiomyopathy, Thallium viability History / [...] 1.2 mg/dL Specimen Performing Laboratory Plasma specimen [facility] DEPARTMENT OF PATHOLOGY AND GENOMIC MEDICINE [address] [place] [address] * Echocardiogram complete w contrast and 3D if needed (10/11/2017 9:17 AM) Specimen Performing Laboratory [facility] [address] [place] [id number] Narrative Echocardiography Report [address], [place] [address] Pat.Name:DAMEON FAYE Pat.ID:[id number] St.Date: 10/11/2017 Refer.MD:RJ ORO MD Exam Time: 8:36:00 AMStudy Type:Routine Echo Height:68inWeight:223lb BSA: 2.14 m2 DOBAge:1949,67Y Sex: MALEBP: 113/52 Sonogrphr: AURELIANO Wesley, ESTEFANI, PEPPER Gruber. Stat.:Inpatient Room:[facility] Study Status:Final Echo Event ID:[id number] Order ID:[id number] Reason for Study:HF; initial eval with symptoms History / Clinical:Chest pain, HYPERTENSION, HYPERLIPIDEMIA, DIABETES, Coronary Artery Disease, Shortness of Breath, Valvular Heart Disease; Aortic Stenosis, Edema, Obesity Procedures:2D Echo, Colorflow Doppler, Intravenous Definity Contrast Race:C SUMMARY: LV size is hovijetc-wi-fllfuijp enlarged. LV EF is moderately to severely depressed. Estimated EF is 25-29%. RV systolic function is moderately depressed. Diastolic dysfunction Grade III (Severe): Impaired relaxation with restrictive LV filling pressures. Estimated PA systolic pressure is 69-74 mmHg, assuming a mean RAP of 15-20 mmHg. FINDINGS: LV: LV size is scbianon-vq-ptzozyat enlarged. There is severe eccentricLV hypertrophy. LV [...] of 15-20 mmHg. MEASUREMENTS: 2D Parasternal [place] LVOT 1.9 cmLA Ds 4.2 cm LVIDd6.5 cmIndex 3.1 cm/m Ao An2 cm LVIDs5.3 cmAo Rtd 3.5 cm Index1.6 cm/m LV%fs 19.2 % LV Osgj850.3 g(122-174) IVSd 1.2 cmLVM Index 149.6 g/m2 [...] TVI 49.3 cm AV pkPG 26.5 mmHgAVpkAcRt 28471.5 cm/s2 AV Mean G 15.7 mmHgAV DeRt [...] 10/11/2017 12:01 PM CDT Echocardiography Report [address] [place] [address] Pat.Name: DAMEON FAYE [facility].ID: [id number] .Date: 10/11/2017 Refer.MD: RJ ORO MD Exam Time: 8:36:00 AM Study Type:Routine Echo Height: 68in Weight: 223lb BSA: 2.14 m2 Age: 6 1950,67Y Sex: MALE BP: 113/52 Sonogrphr: Kaushik Engel, AURELIANO, RDRIOS, PEPPER Pat. Stat.:Inpatient Room: [facility] Study Status:Final Echo Event ID:[id number] Order ID: [id number] Reason for Study:HF; initial eval with symptoms History / Clinical:Chest pain, HYPERTENSION, HYPERLIPIDEMIA, DIABETES, Coronary Artery Disease, Shortness of Breath, Valvular Heart Disease; Aortic Stenosis, Edema, Obesity Procedures:2D Echo, Colorflow Doppler, Intravenous Definity Contrast Race: C SUMMARY: LV size is aovmbhes-yw-vuzmsgwj enlarged. LV EF is moderately to severely depressed. Estimated EF is 25-29%. RV systolic function is moderately depressed. Diastolic dysfunction Grade III (Severe): Impaired relaxation with restrictive LV filling pressures. Estimated PA systolic pressure is 69-74 mmHg, assuming a mean RAP of 15-20 mmHg. FINDINGS: LV: LV size is nyafcbhx-bu-itysluhl enlarged. There is severe eccentric LV hypertrophy. [...] of 15-20 mmHg. MEASUREMENTS: 2D Parasternal [place] LVOT 1.9 cm LA Ds 4.2 cm [...] 49.3 cm AV pkPG 26.5 mmHg AVpkAcRt 41843.5 cm/s2 AV Mean G 15.7 mmHg AV [...] 4.20 uIU/mL Specimen Performing Laboratory Plasma specimen [facility] DEPARTMENT OF PATHOLOGY AND GENOMIC MEDICINE [address] [place] [address] * Hemoglobin A1c (10/11/2017 5:50 AM) Only [...] type 1 diabetes. Specimen Performing Laboratory Blood [facility] DEPARTMENT OF PATHOLOGY AND [facility] MEDICINE [address] [place] [address] * Digoxin level (10/11/2017 5:50 AM) Only [...] 2.0 ng/mL Specimen Performing Laboratory Plasma specimen [facility] OF PATHOLOGY AND [facility] MEDICINE [address] [place] [address] * Lipid panel (10/11/2017 5:50 AM) Only [...] (>=200 mg/dL) Specimen Performing Laboratory Plasma specimen [facility] DEPARTMENT OF PATHOLOGY AND GENOMIC MEDICINE [address] [place] [address] * Troponin (10/10/2017 8:38 PM) Only the [...] myocardial injury. Specimen Performing Laboratory Plasma specimen [facility] DEPARTMENT OF PATHOLOGY AND GENOMIC MEDICINE [address] [place] [address] * Urinalysis screen and microscopy, with reflex [...] UA 12 /LPF Specimen Performing Laboratory Urine [facility] DEPARTMENT OF PATHOLOGY AND [facility] MEDICINE [address] [place] [address] * Urine culture (10/10/2017 5:28 PM) Only the most recent of 4 results within the time period is included. Component Value Ref Range Urine culture SEE COMMENTComment: Bacteriuria screen negative. Specimen Performing Laboratory [facility] DEPARTMENT OF PATHOLOGY AND GENOMIC MEDICINE [address] [place] [address] * XR Chest 1 Vw Portable (10/10/2017 8:18 AM) Only the most recent of 5 results within the time period is included. Specimen Performing Laboratory [address] [address] Narrative PROCEDURE:XR CHEST 1 VW PORTABLE CLINICAL [...] of mild congestive cardiac failure. Otherwise unchanged. [id number] Procedure Note [facility], Radiology Results Incoming - 10/10/2017 8:23 AM [...] of mild congestive cardiac failure. Otherwise unchanged. [id number] * Partial thromboplastin time, activated (10/10/2017 7:24 AM) Only the most recent of 22 results within the time period is included. Component Value Ref Range PTT 32.7 23.0 - 36.0 sec Comment: PTT therapeutic range for unfractionated heparin is 61.0-112.0 seconds which corresponds to Anti-Xa 0.3-0.7 U/ml. Specimen Performing Laboratory Blood [facility] DEPARTMENT OF PATHOLOGY AND GENOMIC MEDICINE [address] [place] [address] * ECG 12 lead (10/10/2017 7:01 AM) Only the most recent of 14 results within the time period is included. Component Value Ref Range Ventricular rate 84 Atrial rate 84 MT interval 130 QRSD interval 198 QT interval 474 QTC interval 560 P axis 1 68 QRS axis 1 -68 T wave axis 99 EKG impression Atrial-sensed ventricular-paced rhythm-Abnormal ECG-In automated comparison with ECG of 10-OCT-2017 07:00,-No significant change was found- Specimen Performing Laboratory [facility] MUSE [address] [place] [address] * Manual differential (09/27/2017 2:48 AM) Only [...] Anisocytosis Moderate Polychromasia Moderate Specimen Performing Laboratory [facility] DEPARTMENT OF PATHOLOGY AND GENOMIC MEDICINE [address] [place], [place] [address] * ECG Pre/Post Op (in AM) (09/26/2017 [...] decreased BY 21 BPM- Specimen Performing Laboratory [facility] MUSE [address] [place] [address] * Cv dentures lab technician procedure (09/26/2017 9:38 AM) Specimen Performing Laboratory [facility] [address] [place] [address] Narrative PCI of LM ISR with 4.0 [...] 225 U/L Specimen Performing Laboratory Plasma specimen [facility] DEPARTMENT OF PATHOLOGY AND GENOMIC MEDICINE [address] [place] [address] * Vitamin D 25 hydroxy level (09/21/2017 [...] for alternative methods. Specimen Performing Laboratory Blood [facility] DEPARTMENT OF PATHOLOGY AND GENOMIC MEDICINE [address] [place] [address] * Peripheral smear (09/21/2017 3:40 AM) Only the most recent of 3 results within the time period is included. Component Value Ref Range Peripheral smear Done Comment: Peripheral smear is located in Hematology Laboratory, second floor of [facility]. Specimen Performing Laboratory [facility] DEPARTMENT OF PATHOLOGY AND [facility] MEDICINE [address] [place] [address] * Prepare RBC, 1 Units (09/20/2017 10:10 AM) Only the most recent of 2 results within the time period is included. Component Value Ref Range Product name Red Cells AS1 Leukored Irrad Unit number [id number] Product code [id number] Dispense status Transfused Blood expiration date [id number] Blood type code 7300 Blood type B POSITIVE Specimen Performing Laboratory [facility] DEPARTMENT OF PATHOLOGY AND [facility] MEDICINE [address] [place] [address] * Type and screen (09/20/2017 10:10 AM) Only the most recent of 5 results within the time period is included. Component Value Ref Range ABO grouping B Rh type POS Antibody screen (gel) NEG Specimen Performing Laboratory [facility] DEPARTMENT [place] [address] * CBC hemogram (09/19/2017 11:40 PM) Component [...] 0.00 /100 WBC Specimen Performing Laboratory Blood [facility] DEPARTMENT OF PATHOLOGY AND GENOMIC MEDICINE [address] [place] [address] * Transfuse RBC (09/18/2017 5:15 PM) * [...] Protein 7.2 6.3 - 8.3 g/dL Comment: [place] 4.6-7.0 g/dL 1 week 4.4-7.6 g/dL 7 months-1year 5.1-7.3 g/dL 1-2 years 5.6-7.5 g/dL >3 years 6.0-8.0 g/dL 18-150 6.3-8.3 g/dL ALT 42 5 - 50 U/L AST 92 (H) 10 - 50 U/L Specimen Performing Laboratory Plasma specimen [facility] DEPARTMENT OF PATHOLOGY AND GENOMIC MEDICINE [address] [place] [address] * XR Shoulder 2+ Vw Left (09/16/2017 5:43 PM) Specimen Performing Laboratory [address] [address] Narrative Clinical history: COMPARISON: 09/15/2017 TECHNIQUE: views of the shoulder FINDINGS: Acromial humeral distance is normal. The glenohumeral distance is uniformly mildly narrowed. There are no signs of trauma. IMPRESSION: There is mild uniform degenerative narrowing of the glenohumeral joint with sclerosis and small osteophytes on the inferior glenoid margin. Mild acromioclavicular arthropathy. [id number] Procedure Note Hm Interface, Radiology Results Incoming - 09/16/2017 5:56 PM BINDERY LEADPERSON Clinical history: COMPARISON: 09/15/2017 TECHNIQUE: views of the shoulder FINDINGS: Acromial humeral distance is normal. The glenohumeral distance is uniformly mildly narrowed. There are no signs of trauma. IMPRESSION: There is mild uniform degenerative narrowing of the glenohumeral joint with sclerosis and small osteophytes on the inferior glenoid margin. Mild acromioclavicular arthropathy. [id number] * Respiratory pathogen panel (09/16/2017 10:20 AM) [...] Right Specimen Performing Laboratory Nares - Right [facility] DEPARTMENT OF PATHOLOGY AND GENOMIC MEDICINE [address] [place] [address] * Heparin PF4 antibody (IgG) (09/16/2017 8:52 AM) Component Value Ref Range Heparin PF4 Ab OD reading 0.094 0.000 - 0.399 Heparin PF4 Ab, IgG Negative Negative Specimen Performing Laboratory Blood [facility] DEPARTMENT OF PATHOLOGY AND GENOMIC MEDICINE [address] [place] [address] * CK-MB (09/16/2017 4:25 AM) Component Value Ref Range CK-MB 144.9 (H) 1.0 - 10.4 ng/mL Specimen Performing Laboratory Plasma specimen [facility] DEPARTMENT OF PATHOLOGY AND GENOMIC MEDICINE [address] [place] [address] * Creatine kinase, total (CPK) (09/16/2017 4:25 AM) Only the most recent of 5 results within the time period is included. Component Value Ref Range Creatine kinase 1,300 (H) 39 - 308 U/L Specimen Performing Laboratory Plasma specimen [facility] DEPARTMENT OF PATHOLOGY AND [facility] MEDICINE [address] [place] [address] * Urinalysis, automated with microscopy (09/15/2017 9:32 [...] None seen UA Specimen Performing Laboratory Urine [facility] PATHOLOGY AND [address] [address] * Beta hydroxybutyrate (09/15/2017 8:41 AM) Component Value Ref Range Beta hydroxybutyrate 1.05 (H) 0.02 - 0.27 mmol/L Specimen Performing Laboratory Serum [facility] DEPARTMENT OF PATHOLOGY [address] [address] * Venous blood gas (09/15/2017 8:40 AM) [...] - 28.0 mmol/L Specimen Performing Laboratory Blood [facility] OF PATHOLOGY [facility] MEDICINE [address] [place] [address] * ECG ED Preliminary Interpretation - NOT AN ORDER (09/15/2017 7:19 AM) Only the most recent of 5 results within the time period is included. Narrative Marbin De León MD 09/15/20173:54 PM ECG ED Preliminary Interpretation - Not an Order Performed by: MARBIN DE LEÓN Authorized by: MARBIN DE LEÓN ECG reviewed by ED Physician in the absence of a land lease information clerk: yes Previous ECG: Previous ECG:Compared to current [...] 4.5 mg/dL Specimen Performing Laboratory Plasma specimen [facility] DEPARTMENT OF PATHOLOGY AND GENOMIC MEDICINE [address] [place] [address] * Cv dentures lab technician procedure (08/19/2017 9:19 AM) Specimen Performing Laboratory [facility] [address] [place] [address] Narrative Patient had elevated filling pressures as PCWP was elevated. Plan CHF/transplant eval. * [place] Virus (EBV) by PCR (08/19/2017 5:30 AM) Component Value Ref Range [place] virus, PCR Not-Detected Not-Detected copies/mL [place] virus, PCR See link below for PDF Lab ReportComment: Specimen Performing Laboratory [facility] DEPARTMENT OF PATHOLOGY AND GENOMIC MEDICINE [address] [place] [address] * C-reactive protein (08/19/2017 5:30 AM) Component Value Ref Range CRP 0.54 (H) 0.00 - 0.50 mg/dL Specimen Performing Laboratory Plasma specimen [facility] DEPARTMENT OF PATHOLOGY AND GENOMIC MEDICINE [address] [place] [address] * PV physiologic arterial lower extremity complete w mal (08/18/2017 10:30 AM) Specimen Performing Laboratory [facility] [address] [place] [address] Narrative Vascular Diagnostic Laboratory Physiologic Arterial Leg Report [address] [place] [address] Pat.Name:DAMEON FAYE Pat.ID:[id number] St.Date: 08/18/2017 Refer.MD:JUSTUS PRASAD MD Exam Time: 9:35:00 AMStudy Type:Physiologic Leg Height:68inWeight:233lb BSA: 2.18 m2 DOBAge:1949,67Y Sex: MALE Sonogrphr: Jina Nicholson RVT, Filomena Martinez RVT Pat. Stat.:Inpatient Room:[address] TapeVol: Shima RIVAS Event ID:[id number] Order ID:[id number] Reason for Study:Heart Transplant/ LVAD Evaluation.History of [...] * Calf Ankle DP 94 Non-compressible Ankle PTNon-vddrkdohjlid540 Great Toe 3734 ANKLE/BRACHIAL INDEX: RIGHTLEFT Dorsalis [...] Radiology Results In - 08/18/2017 3:23 PM [facility] Vascular Diagnostic Laboratory Physiologic Arterial Leg Report [address]Name: DAMEON FAYE Allyn.ID: [id number] .Date: 08/18/2017 Refer.MD: JUSTUS PRASAD MD Exam Time: 9:35:00 AM Study Type:Physiologic Leg Height: 68in Weight: 233lb BSA: 2.18 m2 Age: 6 1950,67Y Sex: MALE Sonogrphr: Jina Nicholson RVT, KERI EscuderoT Pat. Stat.:Inpatient Room: [address] Tape Vol: JJ, Echo Event ID:[id number] Order ID: [id number] Reason for Study:Heart Transplant/ LVAD Evaluation. History [...] included. Specimen Performing Laboratory [facility] [address] [place] [address] Narrative Vascular Ultrasound Laboratory Carotid Artery Duplex Report [address] [address], [place] [address] For water quality specialist purposes, the categorization of the degree of the stenosis of this exam is based on criteria described in the IAC carotid stenosis grading white paper( www.intersocietal.org/Vascular) and Juan Daugherty., Wendy Nicolas., et al. Carotid artery stenosis: zheng-scale and Doppler US diagnosis--Society of Radiologists in Ultrasound Consensus Conference. Radiology. 2003 Nov; 229(2):340-6. Pat.Name:DAMEON FAYE.ID:[id number] .Date: 08/18/2017 Refer.MD:JUSTUS PRASAD MD Exam Time: 8:29:00 AMStudy Type:Carotid Height:68inBSA: 2.14 m2 DOBAge:1950,67Y Sex: MALE Sonogrphr: Jina Nicholson, RVT, Filomena Martinez, RVT Pat. Stat.:Inpatient Room:[address] TapeVol: EVELYN, CPT - 4: [address] Echo Event ID:[id number] Order ID:[id number] Reason for Study:Heart Transplant/ LVAD Evaluation.History of [...] EDV23.6 cm/s Left CCA Mid CCA Mid IGM908 cm/sCCA Mid EDV 26.2 cm/ s Left [...] Radiology Results In - 08/22/2017 8:37 AM [facility] Vascular Ultrasound Laboratory Carotid Artery Duplex Report [address] [place] [address] For water quality specialist purposes, the categorization of the degree of the stenosis of this exam is based on criteria described in the IAC carotid stenosis grading white paper( www.intersocietal.org/Vascular) and Celena Daugherty, John Nicolas, et al. Carotid artery stenosis: zheng-scale and Doppler US diagnosis--Society of Radiologists in Ultrasound Consensus Conference. Radiology. 2003 Nov; 229(2):340-6. Pat.Name: DAMEON FAYE Pat.ID: [id number] St.Date: 08/18/2017 Refer.MD: JUSTUS PRASAD MD Exam Time: 8:29:00 AM Study Type:Carotid Height: 68in BSA: 2.14 m2 Age: 6 1950,67Y Sex: MALE Sonogrphr: Jina Nicholson, RVT, Filomena Martinez RVT Pat. Stat.:Inpatient Room: [address] Tape Vol: JJ, CPT - 4: [address] Echo Event ID:[id number] Order ID: [id number] Reason for Study:Heart Transplant/ LVAD Evaluation. History [...] for PDF Lab Report Specimen Performing Laboratory [facility] DEPARTMENT OF PATHOLOGY AND GENOMIC MEDICINE [address] [place] [address] * Syphilis treponemal IgG (08/18/2017 5:45 AM) Component Value Ref Range Syphilis treponemal IgG Non-reactiveComment: Non-reactive: No serological Non-reactive evidence of Syphilis infection Specimen Performing Laboratory Serum [facility] DEPARTMENT OF PATHOLOGY AND GENOMIC MEDICINE [address] [place] [address] * ABO (08/18/2017 5:45 AM) Component Value Ref Range ABO grouping B Specimen Performing Laboratory [facility] DEPARTMENT OF PATHOLOGY AND GENOMIC MEDICINE [address] [place] [address] * Tac[place]-Peacock virus antibody test (08/18/2017 5:45 [...] + Reactivation + Specimen Performing Laboratory Serum [facility] DEPARTMENT OF PATHOLOGY AND GENOMIC MEDICINE [address] [place] [address] * TB T-SPOT (08/18/2017 5:45 AM) Component [...] FOR USE WITH T=SPOT.TB TEST. Performed by: [facility] Molecular Tuberculosis Laboratory [facility] ([id number]) [place], [place] [address] Specimen Performing Laboratory Blood [facility] [address] [place] [address] * Single antigen beads (08/18/2017 5:45 AM) Component Value Ref Range Single antigen beads See link below for PDF Lab Report Specimen Performing Laboratory [facility] DEPARTMENT OF PATHOLOGY AND GENOMIC MEDICINE [address] [place] [address] * Cytomegalovirus Ab, IgM (08/18/2017 5:45 AM) Component Value Ref Range Cytomegalovirus Ab, IgM NegativeComment: Negative: CMV IgM antibodies were Negative not detected. Specimen Performing Laboratory Serum [facility] DEPARTMENT OF PATHOLOGY AND GENOMIC MEDICINE [address] [place] [address] * Toxoplasma IgM Ab (08/18/2017 5:45 AM) Component Value Ref Range Toxoplasma IgM 0.01 0.00 - 0.54 TV Comment: Negative < 0.54 TV Equivocal >=0.55 - 0.64 TV Positive >=0.65 TV Specimen Performing Laboratory Blood [facility] DEPARTMENT OF PATHOLOGY AND [facility] MEDICINE [address] [place] [address] * Toxoplasma gondii antibody, IgG (08/18/2017 5:45 AM) Component Value Ref Range Toxoplasma gondii Ab, IgG <3 0 - 9 IU/mL Comment: Equal or less than 9 IU/mL Negative; No previous T. gonii infection Specimen Performing Laboratory Serum [facility] DEPARTMENT OF PATHOLOGY AND [facility] MEDICINE [address] [place] [address] * Cytomegalovirus Ab, IgG (08/18/2017 5:45 AM) Component Value Ref Range Cytomegalovirus Ab, IgG Positive (A) Negative Comment: Positive; IgG antibody to CMV detected which may indicate exposure to CMV infection. Specimen Performing Laboratory Serum [facility] PATHOLOGY [address] [address] * Prealbumin level (08/18/2017 5:45 AM) Component Value Ref Range Prealbumin 22 16 - 32 mg/dL Specimen Performing Laboratory Serum [facility] DEPARTMENT OF PATHOLOGY [facility] MEDICINE [address] [place] [address] * Creatinine clearance, urine, 24 hour (08/18/2017 [...] 115 ML/MIN/1.73 SQ.METER Specimen Performing Laboratory Urine [facility] DEPARTMENT OF PATHOLOGY AND [facility] MEDICINE [address] [place] [address] * Hepatitis A antibody total (08/18/2017 4:00 AM) Component Value Ref Range Hepatitis A total Ab Non-reactive Non-reactive Specimen Performing Laboratory Serum [facility] DEPARTMENT OF PATHOLOGY AND [facility] MEDICINE [address] [place] [address] * Hepatitis acute panel (08/18/2017 4:00 AM) Component Value Ref Range Hepatitis A IgM Non-reactive Non-reactive Hepatitis B core IgM Non-reactive Non-reactive Hepatitis B surface Ag Non-reactive Non-reactive Hepatitis C Ab Non-reactive Non-reactive Specimen Performing Laboratory Serum [facility] DEPARTMENT OF PATHOLOGY AND [facility] MEDICINE [address] [place] [address] * HIV 1, 2 antibody (08/18/2017 4:00 AM) Component Value Ref Range HIV 1, 2 antibody Non-reactive Non-reactive Comment: Starting from October 28 2015, 4th generation HIV screening and confirmation assays are in use at [facility], consistent with the CDC-recommended algorithm. [...] on the testing algorithm, please refer to: http://stacks.cdc.gov/view/cdc/33163. Specimen Performing Laboratory Serum [facility] PATHOLOGY [address] [address] * Hepatitis B surface antibody (08/18/2017 4:00 AM) Component Value Ref Range Hepatitis B surface Ab Non-reactive Non-reactive Specimen Performing Laboratory Serum [facility] DEPARTMENT OF PATHOLOGY [address] [address] * Uric acid level (08/18/2017 4:00 AM) Component Value Ref Range Uric acid 13.8 (H) 3.4 - 7.0 mg/dL Specimen Performing Laboratory Plasma specimen [facility] DEPARTMENT OF PATHOLOGY AND GENOMIC MEDICINE [address] [place] [address] * T3 (08/18/2017 4:00 AM) Component Value Ref Range T3 91 80 - 200 ng/dL Specimen Performing Laboratory Plasma specimen [facility] DEPARTMENT OF PATHOLOGY AND GENOMIC MEDICINE [address] [place] [address] * T4, free (08/18/2017 4:00 AM) Component Value Ref Range T4, free 1.2 0.9 - 1.7 ng/dL Specimen Performing Laboratory Plasma specimen [facility] DEPARTMENT OF PATHOLOGY AND GENOMIC MEDICINE [address] [place] [address] * T4 (08/18/2017 4:00 AM) Component Value Ref Range T4 4.7 4.5 - 11.7 ug/dL Specimen Performing Laboratory Plasma specimen [facility] DEPARTMENT [place] [address] * Prostate specific antigen (08/18/2017 4:00 AM) Component Value Ref Range PSA 0.6 0.0 - 4.0 ng/mL Comment: The VICTORINO 8000 PSA immunoassay was used. Results obtained with different assay methods or kits should not be used interchangeably and may be different. Specimen Performing Laboratory Plasma specimen [facility] DEPARTMENT OF PATHOLOGY AND [address] [address] * Ferritin level (08/18/2017 4:00 AM) Component Value Ref Range Ferritin level 100 30 - 400 ng/mL Specimen Performing Laboratory Plasma specimen [facility] DEPARTMENT [place] [address] * CT Chest Wo Contrast Abdomen Wo Contrast Pelvis Wo Contrast (08/17/2017 6:38 PM) Specimen Performing Laboratory [address] [address] Narrative EXAMINATION:CT CHEST WO CONTRAST ABDOMEN WO [...] arthritic changes are noted involving the spine. [facility]-[id number] Procedure Note Hm Interface, Radiology Results Incoming - 08/17/2017 6:46 PM BINDERY LEADPERSON EXAMINATION: CT CHEST WO CONTRAST ABDOMEN WO [...] arthritic changes are noted involving the spine. [facility]-[id number] * CT Head Wo Contrast (08/17/2017 6:38 PM) Only the most recent of 3 results within the time period is included. Specimen Performing Laboratory [address] [address] Narrative EXAMINATION: CT HEAD WO CONTRAST CLINICAL [...] detailed above with no acute intracranial abnormality. [facility]-[id number] Procedure Note Interface, Radiology Results Incoming - 08/17/2017 6:44 PM BINDERY LEADPERSON EXAMINATION: CT HEAD WO CONTRAST CLINICAL HISTORY: [...] detailed above with no acute intracranial abnormality. [facility]-[id number] * US Renal (08/17/2017 5:44 PM) Specimen Performing Laboratory [facility] [address] [place] [address] Narrative PROCEDURE:US RENAL CLINICAL HISTORY:Elevated abnormal renal [...] measures 1.2 cm diameter. The right kidney .5 cmLENGTH X5.5 cm AP. The right renal parenchymal thickness measures 1.1 cm. The left kidney buggmplc30 cm LENGTH X 4.8 cm AP. The left renal parenchymal thickness measures 1.8 cm. Color flowDoppler confirm arterial flow to both kidneys. The bladder at presentation 5.3 cm x 5.1 cm x 11.2 cm for volume of 140 mL. IMPRESSION: Abnormal study. No evidence of obstructive uropathy. Slight increased renal parenchymal echogenicity as before representing nonspecific medical renal parenchymal [id number] . Procedure Note Hm Interface, Radiology Results Incoming - 08/17/2017 6:13 PM BINDERY LEADPERSON PROCEDURE: US RENAL CLINICAL HISTORY: Elevated abnormal [...] as before representing nonspecific medical renal parenchymal [id number] . * XR Chest 2 Vw (08/17/2017 5:35 PM) Only the most recent of 4 results within the time period is included. Specimen Performing Laboratory [facility] [address] [place] [address] Narrative Study:XR CHEST 2 VW History: heart transplant evaluation COMPARISON: August 15, 2017 IMPRESSION: 2 views of the chest. Left chest pacer and leads in stable position.There is no focal consolidation, pleural effusion or pneumothorax.Cardiac silhouette is enlarged, stable.Visualized osseous structures arestable. [facility]-[id number] Procedure Note Interface, Radiology Results Incoming - 08/17/2017 5:41 PM BINDERY LEADPERSON Study:XR CHEST 2 VW History: heart transplant evaluation COMPARISON: August 15, 2017 IMPRESSION: 2 views of the chest. Left chest pacer and leads in stable position. There is no focal consolidation, pleural effusion or pneumothorax. Cardiac silhouette is enlarged, stable. Visualized osseous structures are stable. [facility]-[id number] * XR Panorex (08/17/2017 5:34 PM) Specimen Performing Laboratory [facility] [address] [place] [address] Narrative EXAMINATION: XR PANOREX CLINICAL HISTORY: Heart transplant evaluation COMPARISON:None IMPRESSION: No periapical lucency. Dental amalgam is present. Dental caries of the right maxillary premolars. [facility]-[id number] Procedure Note Interface, Radiology Results Incoming - 08/17/2017 5:41 PM BINDERY LEADPERSON EXAMINATION: XR PANOREX CLINICAL HISTORY: Heart transplant evaluation COMPARISON: None IMPRESSION: No periapical lucency. Dental amalgam is present. Dental caries of the right maxillary premolars. [facility]-[id number] * Echocardiogram complete w contrast and 3D if needed (08/16/2017 10:02 AM) Specimen Performing Laboratory [facility] [address] [place] [address] Narrative Echocardiography Report [address] [place] [address] Pat.Name:YUNIERDAMEON Allyn.ID:[id number] .Date: 08/16/2017 Refer.MD:ORVILLE STEELE MD Exam Time: 9:02:00 AMStudy Type:Routine Echo Height:68inWeight:228lb BSA: 2.16 m2 DOBAge:6[birth year]67Y Sex: MALEBP: 137/60 Sonogrphr: AURELIANO Wesley, RDRIOSPEPPER/ Mohini Levin MD Pat. Stat.:Inpatient Room:[facility] Study Status:Final Echo Event ID:[id number] Order ID:[id number] Reason for Study:HF; re-eval therapy guidance History [...] RAPof 15 mmHg. MEASUREMENTS: 2D Parasternal [place] LVIDd6.5 cmIndex 3 cm/m Ao An1.7 cm LVIDs5.3 cmAo Rtd 3.1 cm Index1.4 cm/m LV%fs 18.5 % LV Cbxx089.3 g(122-174) IVSd 1.1 cmLVM Index 139.5 g/m2 LVPWd1 cmRWT 0.3 LA Ds4.6 cmLVOT 1.9 cm LV EF SinglePlane LV Ad 53 cm2(9.5-22.3) LVESV 163.5 ml Index75.7 ml/m SMGNP447.2 ml (65-193) Fkbob346.9 ml/m LV SV 71.7 ml LV As [...] Radiology Results In - 08/16/2017 2:49 PM [facility] LEADPERSON Echocardiography Report [address] [place] [address] Pat.Name: DAMEON FAYE.ID: [id number] .Date: 08/16/2017 Refer.MD: ORVILLE STEELE MD Exam Time: 9:02:00 AM Study Type:Routine Echo Height: 68in Weight: 228lb BSA: 2.16 m2 Age: 6 1950,67Y Sex: MALE BP: 137/60 Sonogrphr: Kaushik Engel, AURELIANO, RD, PEPPER/ Mohini Levin MD Pat. Stat.:Inpatient Room: [facility] Study Status:Final Echo Event ID:[id number] Order ID: [id number] Reason for Study:HF; re-eval therapy guidance History [...] of 15 mmHg. MEASUREMENTS: 2D Parasternal [place] LVIDd 6.5 cm Index 3 cm/m Ao [...] Specimen Information Specimen Source: Blood Specimen Site: [facility] Specimen Performing Laboratory Blood [facility] DEPARTMENT OF PATHOLOGY AND GENOMIC MEDICINE [address] [place] [address] * Bedside glucose (07/12/2017 10:29 AM) Only [...] 99 mg/dL Specimen Performing Laboratory Plasma specimen [facility] DEPARTMENT OF PATHOLOGY AND GENOMIC MEDICINE [address] [place] [address] * XR Abdomen 1 Vw Portable (07/04/2017 9:45 AM) Only the most recent of 2 results within the time period is included. Specimen Performing Laboratory [facility] [address] [place], [place] [address] Narrative Examination:XR ABDOMEN 1 VW PORTABLE Clinical history:"ABDOMINAL PAIN" Comparison: 01/30/2017 IMPRESSION: Right lateral abdomen is excluded from pars of these films. Vascular calcifications are seen. Surgical clips are seen in the right groin. The bowel gas pattern is nonspecific.There is no evidence of acute disease within the imaged portions of both lung bases. The imaged bones appear to be within normal limits. [facility]-[id number] Procedure Note [facility], Radiology Results Incoming - 07/04/2017 9:56 AM BINDERY LEADPERSON Examination: XR ABDOMEN 1 VW PORTABLE Clinical [...] bones appear to be within normal limits. [facility]-[id number] * Arterial blood gas, pulmonary func dept [...] - 18.0 g/dL Specimen Performing Laboratory Blood [facility] DEPARTMENT OF PATHOLOGY AND GENOMIC MEDICINE [address] [place] [address] * Continuous EEG monitoring (06/10/2017 11:26 AM) [...] Contrast (06/09/2017 4:54 PM) Specimen Performing Laboratory [address] [address] Narrative EXAMINATION: CT ANGIOGRAM HEAD W WO [...] aneurysmal dilatation or vascular malformation of the [place]. The intradural right vertebral artery [...] 1. No hemodynamically significant narrowing of the [place] vessels. 2. Intracranial atherosclerotic disease, with vascular calcifications noted along the cavernous segments of both internal carotid arteries and intradural vertebral arteries. [facility]-[id number] Procedure Note Hm Interface, Radiology Results Incoming - 06/09/2017 5:10 PM BINDERY LEADPERSON EXAMINATION: CT ANGIOGRAM HEAD W WO CONTRAST [...] aneurysmal dilatation or vascular malformation of the [place]. The intradural right vertebral artery [...] 1. No hemodynamically significant narrowing of the [place] vessels. 2. Intracranial atherosclerotic disease, with vascular calcifications noted along the cavernous segments of both internal carotid arteries and intradural vertebral arteries. [facility]-[id number] * CTA Neck W Wo Contrast (06/09/2017 4:27 PM) Specimen Performing Laboratory [facility] [address] [place] [address] Narrative EXAMINATION:CT ANGIOGRAM NECK W WO CONTRAST [...] 60% narrowing of the right carotid bifurcation. [id number] Procedure Note Hm Interface, Radiology Results Incoming - 06/09/2017 5:08 PM BINDERY LEADPERSON EXAMINATION: CT ANGIOGRAM NECK W WO CONTRAST [...] 60% narrowing of the right carotid bifurcation. [id number] * Echocardiogram complete w contrast and 3D if needed (06/09/2017 4:14 PM) Specimen Performing Laboratory [facility] [address] [place] [address] Narrative Echocardiography Report [address] [place] [address] Pat.Name:DAMEON FAYE.ID:[id number] .Date: 06/09/2017 Refer.MD:GUCCI GRAMAJO MD Exam Time: 2:07:00 PMStudy Type:Routine Echo Height:68inWeight:238lb BSA: 2.2 y4GYKCfl:1949,67Y Sex: MALEBP: 118/59 HR:63 bpm Sonogrphr: Wen Matson RIOS Pat. Stat.:Inpatient Room:[place] [address] Study Status:Final Echo Event ID:[id number] Order ID:[id number] Reason for Study:Stroke History / Clinical:Chest pain, [...] RAPof 5 mmHg. MEASUREMENTS: 2D Parasternal [place] LA Ds5 cmAo Rtd 2.8 cm Index1.3 cm/m LVOT 1.9 cm LV Dmhi777.5 g(122-174) LVIDd6.4 cmIndex 2.9 cm/m LVM Liufk907 g/m2 IVSd 1.5 cmRWT 0.4 LVPWd1.1 cm LV EF SinglePlane LV Ad 50.5 cm2(9.5-22.3) LVESV 143.3 ml Index65.1 ml/m QKMTT156.1 ml (65-193) Index98.7 ml/m LV SV 73.8 ml LV As 40.2 cm2(4-11.6) LV EF 34 %(63-77) LA Sng Plane LA Area 27.2 cm2(8.8-23.4) LA Vol98.8 ml Index44.9 ml/m LA LngAx 6.5 cm DOPPLER AV For Flow/LEANDRA AV pkVel 289.8 cm/s (100-170) AV AC/ET 0.2 AV mnVel 184.5 cm/Yamile TVI 59.3 cm AV pkPG 33.6 mmHgAVpkAcRt 63984.2 cm/s2 AV Mean G 17 mmHgAV DeRt 902 cm/s2 AV AC 73 msec (83-118) AV Area 1 cm2(3-5) AV ET321 msec LVOT For Flow HR58.9 bpm LVOTpkPG 4.7 mmHg LVOT CO2.6 l/min LVOTmnPG 1.9 mmHg LVOT CI1.2 l/m/m2LVOT TVI 21.3 cm LVOT Area2.8 cm2 LVOT SV 60.5 ml KEZXhnXzb767.5 cm/s Signed 06/09/2017 06:41 PM Jeremiah Lazo M.D. Procedure Note Interface, Radiology Results In - 06/09/2017 6:49 PM [employer] LEADPERSON Echocardiography Report [address] [id number] Pat.Name: DAMEON FAYE.ID: [id number] St.Date: 06/09/2017 Refer.MD: GUCCI GRAMAJO MD Exam Time: 2:07:00 PM Study Type:Routine Echo Height: 68in Weight: 238lb BSA: 2.2 m2 Age: 6 1950,67Y Sex: MALE BP: 118/59 HR: 63 bpm Sonogrphr: Wen Matson RDCS Pat. Stat.:Inpatient Room: [place] [address] Study Status:Final Echo Event ID:[id number] Order ID: [id number] Reason for Study:Stroke History / Clinical:Chest pain, [...] of 5 mmHg. MEASUREMENTS: 2D Parasternal [place] LA Ds 5 cm Ao Rtd 2.8 [...] 59.3 cm AV pkPG 33.6 mmHg AVpkAcRt 66582.2 cm/s2 AV Mean G 17 mmHg AV [...] AM) Specimen Performing Laboratory [facility] [address] [place] [address] Narrative Vascular Ultrasound Laboratory Lower Extremity Arterial Duplex Report [address] [place] [address] Pat.Name:DAMEON FAYE.ID:[id number] .Date: 06/09/2017 Refer.MD:ANGELINA ORO MD Exam Time: 9:59:00 AMStudy Type:LE Arterial DOBAge:1950,67Y Sex: MALE Sonogrphr: Orville Shabazz RDMS, RVTPat. Stat.:Inpatient Room:[place] [address] TapeVol: ST, CPT - 4: [address] Echo Event ID:[id number] Order ID:[id number] Reason for Study:History of intervention on left [...] Radiology Results In - 06/09/2017 5:53 PM [facility] Vascular Ultrasound Laboratory Lower Extremity Arterial Duplex Report [address] [place] [address] Pat.Name: DAMEON FAYE Allyn.ID: [id number] .Date: 06/09/2017 Refer.MD: ANGELINA ORO MD Exam Time: 9:59:00 AM Study Type:LE Arterial Age: 6 1950,67Y Sex: MALE Sonogrphr: Orville Shabazz RDMS, RVT Pat. Stat.:Inpatient Room: [address] Vol: , [facility] - 4: [address] Echo Event ID:[id number] Order ID: [id number] Reason for Study:History of intervention on left [...] (06/09/2017 8:24 AM) Specimen Performing Laboratory [facility] [address] [place] [address] * Folate level (06/09/2017 1:07 AM) Component Value Ref Range Folate 9.7 4.8 - 24.2 ng/mL Specimen Performing Laboratory Serum [facility] DEPARTMENT OF PATHOLOGY AND GENOMIC MEDICINE [address] [place] [address] * Vitamin B12 level (06/09/2017 1:07 AM) Component Value Ref Range Vitamin B12 1,022 (H) 211 - 946 pg/mL Comment: Significant overlap exists between normal and deficiency states. However, most patients with deficiencies will have Serum B12 <200 pg/mL. Specimen Performing Laboratory Serum [facility] DEPARTMENT OF PATHOLOGY AND GENOMIC MEDICINE [address] [place] [address] * CT Stroke Brain Wo Contrast (06/08/2017 2:25 PM) Specimen Performing Laboratory [facility] [address] [place] [address] Narrative EXAMINATION: CT STROKE BRAIN WO CONTRAST [...] at 06/08/2017 2:26 PM who verbalized understanding. [facility]-[id number] Procedure Note Hm Interface, Radiology Results Incoming - 06/08/2017 2:36 PM BINDERY LEADPERSON EXAMINATION: CT STROKE BRAIN WO CONTRAST CLINICAL [...] at 06/08/2017 2:26 PM who verbalized understanding. [facility]-[id number] * Cv invasive peripheral vascular procedure (06/07/2017 12:21 PM) Specimen Performing Laboratory [facility] [address] [place] [address] Narrative Peripheral CATHETERIZATION PROCEDURE NOTE PREOPERATIVE DIAGNOSIS 1.Peripheral Arterial Disease 2.Critical Limb Ischemia POSTOPERATIVE DIAGNOSIS 1.Peripheral Arterial Disease 2.Critical Limb Ischemia PROCEDURES PERFORMED 1.Contralateral right Femoral Angiography 2.Percutaneous Angioplasty of right posterior tibial artery with 3.0x15mm coronary balloon 3.Ipsilateral left Femoral Angiography LIEUTENANT/DEPUTY Dr. Gucci Gramajo, Supervisor Waterproofing TAKE UP OPERATOR Liam Cruz MD ANESTHESIA USED Local 2% lidocaine, Conscious Sedation DESCRIPTION OF PROCEDURE The procedure was described to the patient including benefits, risks, and alternatives to the procedure.The patient confirmed understanding and signed the informed consent.The patient was brought to dentures lab technician, room 3 of [facility].Patient was prepped and draped in sterile fashion. Conscious sedation provided to patient throughout procedure with appropriate monitoring. The left common femoral artery (TECHNOLOGY INTEGRATION SPECIALIST) was palpated and the region above the artery was anesthetized with 2% local lidocaine.Using 18-gauge AMC needle and fluoroscopic guidance, arterial access was obtained in the left TECHNOLOGY INTEGRATION SPECIALIST and a 6F sheath was placed without [...] was then switched to [id number] 45 cm Melcroft destination sheath over the Wholey wire. A [...] report.-Electronically Signed By Elpidio WYLIE, Bharat Braxton ([id number]), medical editor Chito Norman ([id number]) on 03/08/2017 2:47:09 PM Target HR 128.35 bpm Specimen Performing Laboratory [facility] M[facility] [address] [place] [address] * US Gallbladder (03/07/2017 7:30 PM) Specimen Performing Laboratory [facility] [address] [place] [address] Narrative EXAMINATION:US GALLBLADDER CLINICAL HISTORY:CHOLELITHIASIS, portable COMPARISON:None. [...] There is no evidence of acute cholecystitis. [facility]-[id number] Procedure Note Interface, Radiology Results Incoming - [...] There is no evidence of acute cholecystitis. [facility]-[id number] * Cv dentures lab technician procedure (01/31/2017 11:00 AM) Specimen Performing Laboratory [facility] [address] [place] [address] Narrative Cardiac Catheterization Operative Note Dameon Faye,[id number] 67 y.o. male 01/27/2017 - 01/31/2017; [facility] CATHLAB 3 Procedure(s): Cv selective angiography bypass graft Cv pci- left main Cv selective coronary angiography Tolerated procedure well Condition: stable Complications:None; patient tolerated the procedure well. 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 He has a LOTT to LAD patent. Procedure Details Patient was brought to the dentures lab technician. A 6Fr sheath was placed in left [...] Implant Name Type Inv. Item Serial No. Dining Room Busser Lot No. LRB No. Used Action STENT CORONARY BARE METAL REBEL OTW 4.50 MM X 12 MM - [id number] Coronary Stents STENT CORONARY BARE METAL REBEL OTW 4.50 MM X 12 MM [facility] INTER[facility]IONAL CARDIOLOGY [id number] N/A 1 Implanted Gucci Gramajo MD Date: 01/31/2017Time: 11:18 AM ED to Hosp-Admission (Discharged) on 01/27/2017 Detailed Report * Urine eosinophils (01/28/2017 6:00 AM) Component Value Ref Range Eosinophils, urine NONE Specimen Performing Laboratory Urine [facility] DEPARTMENT OF PATHOLOGY AND GENOMIC MEDICINE [address] [place] [phone] * Urea nitrogen, urine, random (01/28/2017 6:00 AM) Component Value Ref Range Urea nitrogen, urine, 384 mg/dL random Specimen Performing Laboratory Urine [facility] DEPARTMENT OF PATHOLOGY AND GENOMIC MEDICINE [address] [place] [id number] * Sodium level, urine, random (01/28/2017 6:00 AM) Component Value Ref Range Sodium, urine, random 65 mEq/L Specimen Performing Laboratory Urine [facility] DEPARTMENT OF PATHOLOGY AND GENOMIC MEDICINE [address] [place] [phone] * Protein, urine, random (01/28/2017 6:00 AM) Component Value Ref Range Protein, urine random 7 mg/dL Specimen Performing Laboratory Urine [facility] DEPARTMENT OF PATHOLOGY AND GENOMIC MEDICINE [address] [place] [id number] * Creatinine level, urine, random (01/28/2017 6:00 AM) Component Value Ref Range Creatinine, urine, random 64 mg/dL Specimen Performing Laboratory Urine [facility] DEPARTMENT OF PATHOLOGY AND GENOMIC MEDICINE [address] [place] [phone] * Chloride level, urine, random (01/28/2017 6:00 AM) Component Value Ref Range Chloride, urine, random 66 mEq/L Specimen Performing Laboratory Urine [facility] DEPARTMENT OF PATHOLOGY AND GENOMIC MEDICINE [address] [place] [phone] * CRITICAL CARE (01/28/2017 5:17 AM) Narrative Scooter Damon DO 01/28/20175:17 AM Critical Care Performed by: SCOOTER DAMON Authorized by: SCOOTER ADMON Critical care provider statement: Critical care time [...] Plan / Group MEDICARE MEDICARE xxxxxxxxxx Medicare [place], [place] PART A AND B AARP AARP xxxxxxxxxx Commercial SUPPLEMENT DAMEON FAYE Transplant Self 1950 Home: [address] [place] [address]
--- NOTE | 2017-10-31 11:03 | Diagnostic Imaging Report ---
PROCEDURE:FOOT LEFT COMPLETE TECHNIQUE:AP, lateral and oblique views left foot INDICATION:Redness; swelling of great toe COMPARISON:None. FINDINGS: Soft tissue defect is present at the distal aspect of the second toe. There is underlying cortical erosion. The remaining foot is intact, in anatomic alignment and without evidence of periosteal reaction or erosion. Diffuse vascular calcifications consistent with arteriosclerosis. CONCLUSION: Second toe tuft osteomyelitis with associated soft tissue ulcer. Dictated by: Bharat Harris M.D. on 10/31/2017 at 11:04 Electronically approved by: Bharat Harris M.D. on 10/31/2017 at 11:04
--- NOTE | 2017-10-31 11:04 | Diagnostic Imaging Report ---
PROCEDURE:CHEST SINGLE (PORTABLE) TECHNIQUE:Portable AP chest INDICATION:Shortness of breath COMPARISON:None. FINDINGS: Lungs are clear and symmetrically inflated. No pleural effusions. Enlarged cardiac silhouette postoperative sequela of CABG. Freely pacemaker/AICD over left hemithorax; leads intact. Normal central vasculature. Intact skeleton. CONCLUSION: Cardiomegaly without acute abnormality. Dictated by: Bharat Harris M.D. on 10/31/2017 at 11:05 Electronically approved by: Bharat Harris M.D. on 10/31/2017 at 11:05
[2017-10-31 11:34] LABS: CLARITY,URINE CLEAR (CLEAR); COLOR,URINE YELLOW (YELLOW); LEUKOCYTE ESTERASE ,URINE NEGATIVE (NEGATIVE); NITRITE,URINE NEGATIVE (NEGATIVE); PROTEIN,URINE DIPSTICK TRACE (NEGATIVE)
[2017-10-31 11:35] LABS: BILIRUBIN,URINE NEGATIVE (NEGATIVE); KETONES,URINE NEGATIVE (NEGATIVE); URINE UROBILINOGEN 0.2 mg/dL (0.2 - 1)
[2017-10-31 11:38] LABS: BASOPHILS # (AUTO) 0.1 (0.0-0.1); BASOPHILS % 0.7 % (0.0-1.0); EOSINOPHILS # (AUTO) 0.1 (0.0-0.4); EOSINOPHILS % 0.9 % (0.0-6.0); HEMATOCRIT 36.6 % (38.2-49.6); HEMOGLOBIN 12.5 g/dL (14.0-18.0); LYMPHOCYTES # (AUTO) 1.7 (1.0-3.2); LYMPHOCYTES % 12.6 % (18.0-39.1); MEAN CORPUSCULAR HEMOGLOBIN 32.8 pg (28-32); MEAN CORPUSCULAR HGB CONC 34.2 g/dL (31-35); MEAN CORPUSCULAR VOLUME 96.1 fL (81-99); MONOCYTES # (AUTO) 1.6 (0.2-0.8); MONOCYTES % 11.7 % (4.4-11.3); NEUTROPHILS # (AUTO) 10.1 (2.1-6.9); NEUTROPHILS % 73.4 % (38.7-80.0); PLATELET COUNT 250 x10e3/uL (140-360); RED BLOOD COUNT 3.81 x10e6/uL (4.3-5.7); RED CELL DISTRIBUTION WIDTH 15.4 % (11.7-14.4)
[2017-10-31 11:44] LABS: PARTIAL THROMBOPLASTIN TIME 77.5 seconds (23.8-35.5)
[2017-10-31 11:44] LABS: BACTERIA,URINE RARE /HPF; EPITHELIAL CELLS,URINE RARE /LPF; RBC,URINE 0-5 /HPF (0-5); WBC,URINE (MAN) 0-5 /HPF (0-5)
[2017-10-31 11:49] LABS: INR 5.85; PROTHROMBIN TIME 49.3 seconds (11.9-14.5)
[2017-10-31 11:50] LABS: ALBUMIN 3.6 g/dL (3.5-5.0); ALBUMIN/GLOBULIN RATIO 0.8 (0.8-2.0); ANION GAP 16.9 mmol/L (8-16); CALCIUM 10.8 mg/dL (8.4-10.2); CREATININE, SERUM 1.77 mg/dL (0.72-1.25); POTASSIUM 3.9 mmol/L (3.5-5.1)
[2017-10-31 11:56] LABS: CREATINE KINASE MB 3.3 ng/mL (0-5.0)
[2017-10-31] MEDS: VANCOMYCIN 1GM/NS 250 ML 250 ML IV SCH ×2 (12:06→22:30)
[2017-10-31] MEDS ORDERED: PHYTONADIONE 10 MG/ML AMP SC ONE (12:15)
[2017-10-31 13:53] LABS: LYMPHOCYTES % (MANUAL) 9 % (19-48); MONOCYTES % (MANUAL) 12 % (3.4-9.0); MYELOCYTES % (MANUAL) 1 % (0-0); NEUTROPHILS % (MANUAL) 74 % (40-74)
[2017-10-31 13:54] LABS: ANISOCYTOSIS SLIGHT; HYPOCHROMASIA SLIGHT; PLATELET ESTIMATE ADEQUATE; PLATELET MORPHOLOGY COMMENT FEW GIANT; POIKILOCYTOSIS SLIGHT; RBC MORPHOLOGY COMMENT NORMAL
[2017-10-31] MEDS ORDERED: PIPER-TAZ 3.375 GM 50 ML IV SCH (14:00)
[2017-10-31] MEDS: PIPERACILLIN/TAZO 2.25 GM 50 ML IV SCH ×2 (14:20→21:33)
[2017-10-31 19:28] LABS: CREATINE KINASE MB 3.1 ng/mL (0-5.0)
[2017-10-31 19:30] VITALS: BP_SYST 128; BP_SYST 135; BP_DIAS 59; BP_DIAS 68
--- NOTE | 2017-10-31 19:35 | Consultation ---
DATE OF CONSULTATION: October 31, 2017 CARDIOLOGY CONSULTATION REQUESTING PHYSICIAN: Dr. Juaquin Purvis REASON FOR CONSULTATION: Osteomyelitis of the left foot. HISTORY OF PRESENT ILLNESS: This is a 67-year-old man with history of coronary artery disease, status post stents and 3-vessel CABG, chronic systolic heart failure, status post AICD, reported history of aortic valve replacement, atrial fibrillation, hypertension, hyperlipidemia, diabetes mellitus, chronic kidney disease, and history of CVA, who presents with left leg pain and swelling. The patient reports he has been having issues with his left 2nd toe for approximately 6 months. This again, the toe began to have increased redness and swelling, as well as increased pain and drainage. He saw Dr. Valenzuela today and was sent to the ER for further evaluation. The patient denies any chest pain, palpitation, edema, orthopnea or PND. However, he does indicate, he woke up this morning with shortness of breath. REVIEW OF SYSTEMS: Negative, except as per HPI. PAST MEDICAL HISTORY 1. Coronary artery disease, status post stents and 3-vessel CABG. 2. History of aortic valve replacement. 3. Chronic systolic heart failure, status post AICD, reported EF of 37%. 4. Atrial fibrillation. 5. Hypertension. 6. Hyperlipidemia. 7. Diabetes mellitus. 8. History of CVA. 9. Chronic kidney disease. PAST SURGICAL HISTORY 1. CABG. 2. Right foot surgery. 3. Aortic valve replacement. SOCIAL HISTORY: Denies tobacco, alcohol or illicit drugs. 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 FAMILY HISTORY: Noncontributory. ALLERGIES: PLEASE SEE EMR. MEDICATIONS: Please see medication list. PHYSICAL EXAM VITAL SIGNS: Temperature 98.1 degrees, pulse 80, respiratory rate 18, blood pressure 132/74, oxygen saturation 99% on 2 L nasal cannula. GENERAL: Awake, alert, in no acute distress. HEENT: Normocephalic, atraumatic. Pupils equal. No scleral icterus. NECK: Supple. No thyromegaly or cervical lymphadenopathy. No carotid bruit. LUNGS: Clear to auscultation bilaterally. No wheezes or crackles. CARDIOVASCULAR: Normal rate, regular rhythm. No murmur. Normal S1/S2. ABDOMEN: Soft, nontender. EXTREMITIES: No edema. Left foot with dressing in place. NEURO: Nonfocal exam. LABS: WBC 13.76, hemoglobin 12.5, hematocrit 36.6, platelets 250,000. Sodium 134, potassium 3.9, chloride 92, CO2 29, BUN 46, creatinine 0.77. Lactic acid 34.8, troponin-I 0.488, CRP is pending. BNP is pending. CHEST X-RAY: Cardiomegaly without acute abnormality. FOOT X-RAY: A 2nd toe pus, osteomyelitis with associated soft tissue ulcer. EKG: Electronic ventricular pacemaker. IMPRESSIONS 1. Left toe osteomyelitis. 2. Shortness of breath. 3. Coronary artery disease, status post stents and 3-vessel coronary artery bypass graft. 4. Chronic systolic heart failure, status post automatic implantable cardioverter defibrillator. 5. Aortic valve replacement. 6. Atrial fibrillation. 7. Hypertension. 8. Hyperlipidemia. 9. Diabetes mellitus. 10. History cerebrovascular accident. 11. Chronic kidney disease. RECOMMENDATION: Obtain followup arterial Dopplers. Patient reports he had recent angiograms done by Dr. Monsivais at [facility]. Will attempt to obtain those records. Check BNP. Obtain echocardiogram for further evaluation. IV antibiotics per primary service. Continue current cardiac medications. Trend cardiac enzymes. Cardiac enzymes are not consistent with myocardial infarction. May be from secondary to his coronary artery disease and poor clearance in the setting of chronic kidney disease. Supratherapeutic INR, hold warfarin if INR is subtherapeutic until INR is therapeutic and then resume. Thank you for this consult. Will continue to follow. Job#: [id number] CQ MTDYamini
[2017-10-31 21:15] VITALS: BP_SYST 63
[2017-10-31] MEDS ORDERED: SODIUM CHLORIDE 0.9% 250ML 250 ML ONE (21:37)
[2017-10-31] MEDS ORDERED: LEVOTHYROXINE75 MCG PO (23:49)
[2017-10-31] MEDS ORDERED: LEVOTHYROXINE88 MCG PO (23:49)
[2017-11-01] VITALS (7 sets, daily range): BP systolic 92–164; BP diastolic 56–78
[2017-11-01] MEDS ORDERED: VICTOZA 2-0.6 MG/0.1 SQ (00:01)
[2017-11-01] MEDS ORDERED: METOLAZONE5 MG PO (00:01)
[2017-11-01] MEDS ORDERED: DIGOXIN125 MCG PO (00:01)
[2017-11-01] MEDS ORDERED: LANTUS 3ML100 UNITS/ SC (00:01)
[2017-11-01] MEDS ORDERED: HUMALOG100 UNIT/1 SC (00:01)
[2017-11-01] MEDS ORDERED: NITROGLYCERIN0.4 MG SL (00:01)
[2017-11-01] MEDS: PIPERACILLIN/TAZO 2.25 GM 50 ML IV SCH ×3 (05:20→21:18)
[2017-11-01] MEDS ORDERED: NITROGLYCERIN 0.4 MG SUBL SL PRN (05:45)
[2017-11-01 06:25] LABS: BASOPHILS # (AUTO) 0.1 (0.0-0.1); BASOPHILS % 0.7 % (0.0-1.0); EOSINOPHILS # (AUTO) 0.3 (0.0-0.4); EOSINOPHILS % 2.7 % (0.0-6.0); HEMATOCRIT 33.3 % (38.2-49.6); HEMOGLOBIN 11.1 g/dL (14.0-18.0); LYMPHOCYTES # (AUTO) 1.3 (1.0-3.2); LYMPHOCYTES % 10.6 % (18.0-39.1); MEAN CORPUSCULAR HEMOGLOBIN 32.9 pg (28-32); MEAN CORPUSCULAR HGB CONC 33.3 g/dL (31-35); MEAN CORPUSCULAR VOLUME 98.8 fL (81-99); MONOCYTES # (AUTO) 1.5 (0.2-0.8); MONOCYTES % 12.1 % (4.4-11.3); NEUTROPHILS # (AUTO) 8.8 (2.1-6.9); NEUTROPHILS % 73.1 % (38.7-80.0); PLATELET COUNT 189 x10e3/uL (140-360); RED BLOOD COUNT 3.37 x10e6/uL (4.3-5.7); RED CELL DISTRIBUTION WIDTH 15.6 % (11.7-14.4)
[2017-11-01 07:08] LABS: ALBUMIN/GLOBULIN RATIO 0.8 (0.8-2.0); ANION GAP 14.7 mmol/L (8-16); CALCIUM 9.2 mg/dL (8.4-10.2); CREATININE, SERUM 1.5 mg/dL (0.72-1.25); POTASSIUM 3.7 mmol/L (3.5-5.1)
[2017-11-01] MEDS ORDERED: BACITRACIN 50,000 UNIT VIAL ONE ×2 (07:39→07:50)
[2017-11-01] MEDS ORDERED: BUPIVACAINE HCL 0.5% INJ 30 ML VIAL INJ ONE (07:39)
[2017-11-01 07:50] LABS: CREATINE KINASE MB 3.6 ng/mL (0-5.0)
[2017-11-01] MEDS: AMLODIPINE BESYLATE 10 MG TAB PO SCH (09:00)
[2017-11-01] MEDS: METOPROLOL SUCCINATE 50 MG TAB XL PO SCH (09:00)
[2017-11-01] MEDS: LEVOTHYROXINE SODIUM 75 MCG TAB PO SCH (09:50)
[2017-11-01] MEDS: CLOPIDOGREL BISULFATE 75 MG TAB PO SCH (09:50)
[2017-11-01] MEDS: ASPIRIN 81 MG ENTERIC COATED PO SCH (09:50)
[2017-11-01] MEDS: DIGOXIN 0.125 MG TAB PO SCH (09:50)
[2017-11-01] MEDS: INSULIN DETEMIR 100 UNIT/ML PEN SQ SCH (09:51)
[2017-11-01] MEDS: METOLAZONE 5 MG TAB PO SCH (09:51)
[2017-11-01] MEDS: PANTOPRAZOLE SOD 40 MG TABEC PO SCH (09:51)
[2017-11-01] MEDS: VANCOMYCIN 1GM/NS 250 ML 250 ML IV SCH ×2 (10:07→23:09)
--- NOTE | 2017-11-01 10:20 | Consultation ---
DATE OF CONSULTATION: November 01, 2017 REASON FOR CONSULTATION: Osteomyelitis, right foot. HISTORY OF PRESENT ILLNESS: This is a 67-year-old male with a past medical history of type 2 diabetes, peripheral neuropathy and left 2nd toe ulceration. Significant cardiac history of coronary artery disease, aortic valve replacement, CHF, atrial fibrillation who is on the heart transplant list. The patient also has chronic kidney disease. The patient was seen in the office by me yesterday complaining of worsening infection to his left foot over the weekend with redness, swelling and pain. X-rays in the office revealed cortical erosion of the distal aspect of the left 2nd digit. Discussed with the patient and the patient's that the best course of action would be to admit for IV antibiotics and a left 2nd toe amputation. The patient relates that he had a cardiac procedure done approximately 2 weeks ago and is on blood thinners. Discussed with the patient will have to manage that for the amputation. The patient was sent to the emergency room for admission to the hospital. The case was discussed with the ER doctor, as well as Dr. Purvis. The patient relates to improvement in redness and swelling overnight since the IV antibiotics. He is seen in the preoperative holding area prior to the surgery. No new pedal complaints. The patient currently denies nausea, vomiting, fever, and chills. REVIEW OF SYSTEMS: Denies nausea, vomiting, fever, chills, chest pain, or shortness of breath at this time. PAST MEDICAL HISTORY: Type 2 diabetes, peripheral neuropathy, chronic kidney disease, history of CVA, hypertension, atrial fibrillation, hyperlipidemia, coronary artery disease, peripheral vascular disease, CHF. SURGICAL HISTORY: CABG, right foot surgery, aortic valve replacement. SOCIAL HISTORY: Denies tobacco, drinking or any illicit drug usage. FAMILY HISTORY: Noncontributory. ALLERGIES: PER THE LIST. MEDICATIONS: Per the list. PHYSICAL EXAMINATION VITALS: Today, temperature is 97.3, heart rate 67, respiratory rate 18, blood pressure 164/70, pulse ox is 94% on nasal cannula. LOWER EXTREMITY PHYSICAL EXAMINATION VASCULAR: Dorsalis pedis and posterior tibial pulses are nonpalpable. Capillary refill time is 4-5 seconds to the digits. Erythema, edema and ascending lymphangitis is noted from the left 2nd digit extending towards to the midfoot. Greater than 2 cm from the distal ulceration site. NEUROLOGICAL: Sensation is diminished to light touch bilaterally, but pain on palpation is felt along the 2nd digit of the 2nd metatarsophalangeal joint. DERMATOLOGICAL: The ulceration is noted to the distal aspect of the patient's left 2nd digit with bone exposed, as well as purulent drainage. Greater than 2 cm of periwound erythema, edema and warmth is noted. MUSCULOSKELETAL: Pain on palpation to the left 2nd metatarsophalangeal joint. LABS: White blood cell count is 13.7, hemoglobin 12.5, hematocrit 36.6, and platelet count is 250,000. Sodium 139, potassium 3.7, chloride 100, CO2 28, BUN 38, creatinine 1.5, glucose 177. PT 49.3, INR 5.85. IMAGING: Two views were taken of the patient's left foot, which revealed distal tuft osteomyelitis with soft tissue ulceration. ASSESSMENT 1. Left foot osteomyelitis. 2. Type 2 diabetes with peripheral neuropathy. 3. Status post coronary artery bypass graft and aortic valve replacement. PLAN: The patient was seen and evaluated. Discussed condition and treatment options with the patient in detail. At this point, will continue IV antibiotics with vancomycin per pharmacist dosage and IV Zosyn. The patient is seen in the preoperative area, and is scheduled for a left 2nd digit amputation today. Due to the patient's elevated INR and PT, will only apply an Esmarch tourniquet, and will have to manage bleeding postoperatively with compression dressing and frequent dressing changes. The patient will be instructed after surgery to keep the lower extremity elevated and to be nonweightbearing to the left lower extremity. The podiatry service will continue to follow as an inpatient. Job#: [id number] MACARENA
[2017-11-01] MEDS ORDERED: FENTANYL CITRATE/PF 100MCG/2 ML INJ ONE ×2 (14:43→18:24)
[2017-11-01] MEDS: MORPHINE SULFATE 2 MG/ML SYR IV PRN ×2 (15:02→19:29)
[2017-11-01] MEDS ORDERED: LIDOCAINE HCL 2% LOCAL 20 ML VIAL ONE (17:31)
[2017-11-01] MEDS: SODIUM CHLORIDE 0.9% 1000ML 1,000 ML IV SCH (18:06)
[2017-11-01] MEDS ORDERED: MIDAZOLAM HCL 2 MG/2 ML VIAL ONE (18:24)
--- NOTE | 2017-11-01 19:23 | Progress Note ---
DATE: November 01, 2017 CARDIOLOGY PROGRESS NOTE SUBJECTIVE: The patient denies chest pain or shortness of breath. OBJECTIVE VITAL SIGNS: Temperature 97 degrees, pulse 85, respiratory rate 17, blood pressure 106/74, oxygen saturation 97% on room air. GENERAL: Awake, alert, in no acute distress. LUNGS: Clear to auscultation bilaterally. No wheezes or crackles. CARDIOVASCULAR: Normal rate, regular rhythm. No murmur. Normal S1/S2. ABDOMEN: Soft, nontender. EXTREMITIES: No edema. Left foot with dressing in place. CARDIAC MEDICATIONS: 1. Metolazone 2.5 mg p.o. daily. 2. Levothyroxine 75 mcg p.o. daily. 3. Digoxin 0.125 mg p.o. daily. 4. Plavix 75 mg p.o. daily. 5. Aspirin 81 mg p.o. daily. 6. Metoprolol succinate 25 mg p.o. daily. 7. Amlodipine 10 mg p.o. daily. LABS: WBC 12.01, hemoglobin 11.1, hematocrit 33.3, platelets 189,000, sodium 139, potassium 3.7, chloride 100, CO2 of 28, BUN 38, creatinine 1.5. Troponin 0.374. TELEMETRY: V-paced. IMPRESSION 1. Left toe osteomyelitis. 2. Shortness of breath. 3. Coronary artery disease, status post stents and 3-vessel coronary artery bypass graft. 4. Chronic systolic heart failure, status post automatic implantable cardioverter defibrillator. 5. Aortic valve replacement. 6. Atrial fibrillation. 7. Hypertension. 8. Hyperlipidemia. 9. Diabetes mellitus. 10. History cerebrovascular accident. 11. Chronic kidney disease. RECOMMENDATIONS: Bilateral lower extremity arterial Dopplers are pending. The patient reports he had a recent angiogram performed by his hotel operations manager, Dr. Monsivais, recently. We will attempt to obtain records. If he has not had peripheral angiogram recently done, he will likely need evaluation. The patient is status post surgery by Dr. Johnson. IV antibiotics per primary service. Watch for wound healing. Based on lower extremity Doppler results and records, will determine if peripheral angiogram is indicated. Cardiac enzymes are not consistent with myocardial infarction, likely secondary to his systolic heart failure and poor clearance in the setting of chronic kidney disease. Watch INR closely. If no further procedures are planned, hold warfarin until INR is therapeutic prior to resuming. Thank you for this consult. We will continue to follow. Job#: [id number] HARRISON
[2017-11-01] MEDS ORDERED: ACETAMINOPHEN 1000 MG/100 ML IV ONE (21:30)
[2017-11-02] MEDS: VANCOMYCIN 1GM/NS 250 ML 250 ML IV SCH ×2 (00:08→10:18)
[2017-11-02] MEDS: MORPHINE SULFATE 2 MG/ML SYR IV PRN (00:49)
[2017-11-02 01:32] VITALS: BP 98/45
[2017-11-02] MEDS ORDERED: ACETAMINOPHEN 1000 MG/100 ML IV SCH (04:00)
[2017-11-02 05:53] VITALS: BP 118/72
[2017-11-02] MEDS: PIPERACILLIN/TAZO 2.25 GM 50 ML IV SCH ×3 (06:42→21:32)
[2017-11-02 06:46] LABS: BASOPHILS # (AUTO) 0.1 (0.0-0.1); BASOPHILS % 0.5 % (0.0-1.0); EOSINOPHILS # (AUTO) 0.1 (0.0-0.4); EOSINOPHILS % 0.7 % (0.0-6.0); HEMATOCRIT 33.9 % (38.2-49.6); HEMOGLOBIN 11.3 g/dL (14.0-18.0); LYMPHOCYTES # (AUTO) 0.7 (1.0-3.2); LYMPHOCYTES % 5.5 % (18.0-39.1); MEAN CORPUSCULAR HGB CONC 33.3 g/dL (31-35); MEAN CORPUSCULAR VOLUME 99.1 fL (81-99); MONOCYTES # (AUTO) 1.1 (0.2-0.8); MONOCYTES % 8.3 % (4.4-11.3); NEUTROPHILS # (AUTO) 10.8 (2.1-6.9); NEUTROPHILS % 84.3 % (38.7-80.0); PLATELET COUNT 166 x10e3/uL (140-360); RED BLOOD COUNT 3.42 x10e6/uL (4.3-5.7); RED CELL DISTRIBUTION WIDTH 15.5 % (11.7-14.4)
[2017-11-02 07:04] LABS: ALBUMIN/GLOBULIN RATIO 0.7 (0.8-2.0); ANION GAP 14.8 mmol/L (8-16); CALCIUM 9.5 mg/dL (8.4-10.2); CREATININE, SERUM 1.64 mg/dL (0.72-1.25); MAGNESIUM 1.5 MG/DL (1.3-2.1); POTASSIUM 3.8 mmol/L (3.5-5.1)
[2017-11-02 07:05] LABS: INR 5.27; PROTHROMBIN TIME 45.4 seconds (11.9-14.5)
[2017-11-02] MEDS: LEVOTHYROXINE SODIUM 75 MCG TAB PO SCH (07:30)
[2017-11-02 08:00] VITALS: BP 126/73
--- NOTE | 2017-11-02 08:50 | Progress Note ---
DATE: November 02, 2017 PODIATRY PROGRESS NOTE SUBJECTIVE: This is a 67-year-old male with past medical history of type-2 diabetes, peripheral neuropathy and significant coronary artery disease. He is postoperative day #1 left 2nd digit amputation due to osteomyelitis. The patient relates some pain to his left foot. He currently denies nausea, vomiting, fever, chills, chest pain or shortness of breath. No other pedal complaints at this time. No other acute issues overnight. OBJECTIVE: Vital signs today: Temperature is 96.5. Heart rate is 94, respiratory rate 20, blood pressure 118/72. Pulse ox is 100% on room air. PROBLEM-FOCUSED LOWER EXTREMITY PHYSICAL EXAMINATION VASCULAR: Capillary refill time is intact to the digits. Dressing was not fully changed. NEUROLOGICAL: Sensation is diminished to light touch bilaterally. Pain on palpation is noted. DERMATOLOGICAL: There is strikethrough noted to the left foot bandage to the dorsal aspect. The Vance wrap and outer bandage were removed and then reinforced with 4 x 4's, Kerlix and Vance wrap again. The entire dressing was not taken down. MUSCULOSKELETAL: Pain on palpation along the incision site. LABS: White blood cell count is 12.8, hemoglobin 11.3, hematocrit 33.9, platelet count 166. ASSESSMENT 1. Left foot osteomyelitis, 1 day status post left 2nd digit amputation. 2. Type-2 diabetes. 3. Peripheral neuropathy. 4. Status post coronary artery bypass graft and aortic valve replacement. PLAN: The patient was seen at the bedside today. There was strikethrough noted to the dorsal aspect of the bandage. The external dressing was reinforced, leaving the internal dressing intact. Continue to recommend IV antibiotics at this time. Keep the left lower extremity elevated. Nonweightbearing to the left lower extremity. The podiatry service will continue to monitor. Job#: [id number]
[2017-11-02] MEDS: DIGOXIN 0.125 MG TAB PO SCH (09:21)
[2017-11-02] MEDS: AMLODIPINE BESYLATE 10 MG TAB PO SCH (09:21)
[2017-11-02] MEDS: PANTOPRAZOLE SOD 40 MG TABEC PO SCH (09:21)
[2017-11-02] MEDS: CLOPIDOGREL BISULFATE 75 MG TAB PO SCH (09:21)
[2017-11-02] MEDS: ASPIRIN 81 MG ENTERIC COATED PO SCH (09:21)
[2017-11-02] MEDS: METOLAZONE 5 MG TAB PO SCH (09:22)
[2017-11-02] MEDS: INSULIN DETEMIR 100 UNIT/ML PEN SQ SCH (09:22)
[2017-11-02] MEDS: METOPROLOL SUCCINATE 50 MG TAB XL PO SCH (09:22)
[2017-11-02] MEDS: SODIUM CHLORIDE 0.9% 1000ML 1,000 ML IV SCH ×2 (10:18→20:10)
[2017-11-02] MEDS: ACETAMINOPHEN 1000 MG/100 ML IV PRN (11:21)
[2017-11-02 12:00] VITALS: BP 119/55
[2017-11-02 16:00] VITALS: BP 127/80
[2017-11-02] MEDS ORDERED: DEXTROSE 50% SYRINGE 50 ML IV PRN (16:30)
[2017-11-02] MEDS: INSULIN REGULAR, HUMAN 100 UNIT/1 ML 3ML VIAL SQ SCH ×2 (17:12→21:30)
--- NOTE | 2017-11-02 18:31 | Progress Note ---
DATE: November 02, 2017 CARDIOLOGY PROGRESS NOTE SUBJECTIVE: Patient denies chest pain or shortness of breath. Discussed recommendation for peripheral angiogram given findings of bilateral lower extremity arterial Doppler. However, refused peripheral angiogram, stating that he was concerned regarding his renal function. Discussed with patient risks of refusing peripheral angiograms including risk of worsening infection and limb loss. Patient stated he understood these risks but did not wish to proceed. OBJECTIVE VITAL SIGNS: Temperature 97.2 degrees, pulse 80, respiratory rate 19, blood pressure 127/80, oxygen saturation 96% on room air. GENERAL: Awake, alert, in no acute distress. LUNGS: Clear to auscultation bilaterally. No wheezes or crackles. CARDIOVASCULAR: Normal rate, regular rhythm. No murmur. Normal S1 and S2. ABDOMEN: Soft, nontender. EXTREMITIES: No edema. Left foot with dressing in place. CARDIAC MEDICATIONS 1. Metoprolol succinate 25 mg p.o. daily. 2. Metolazone 2.5 mg p.o. daily. 3. Digoxin 0.125 mg p.o. daily. 4. Plavix 75 mg p.o. daily. 5. Aspirin 81 mg p.o. daily. 6. Amlodipine 10 mg p.o. daily. 7. Levothyroxine 75 mcg p.o. daily. LABS: Sodium 138, potassium 3.8, chloride 98, CO2 29, BUN 40, creatinine 1.64. WBC 12.83, hemoglobin 11.3, hematocrit 33.9, platelets 166. INR 5.27. TELEMETRY: V-paced. IMPRESSION 1. Left foot osteomyelitis status post 2nd digit amputation. 2. Chronic systolic heart failure status post automatic implantable cardioverter-defibrillator. 3. Coronary artery disease status post stents and 3-vessel coronary artery bypass graft. 4. History of aortic valve replacement. 5. Atrial fibrillation. 6. Hypertension. 7. Hyperlipidemia. 8. Diabetes mellitus. 9. History of cerebrovascular accident. 10. Chronic kidney disease. RECOMMENDATIONS: Patient refused peripheral angiogram. He understands that he is at risk for worsening infection and limb loss. IV antibiotics per primary service. Wound care per Podiatry. INR remains elevated. Continue to hold warfarin until INR is therapeutic. Patient's troponin is not consistent with myocardial infarction, likely secondary to systolic heart failure and poor clearance in the setting of chronic kidney disease. As patient is asymptomatic, no further cardiac evaluation is indicated at this time. We will stop fluids. Thank you for this consult. We will continue to follow. Job#: [id number] EV
[2017-11-02] MEDS ORDERED: HYDROCODONE/APAP 5MG-325MG TAB PO PRN (18:45)
[2017-11-02 20:00] VITALS: BP 134/118
[2017-11-03] VITALS: BP 107/63
[2017-11-03] MEDS: ACETAMINOPHEN 1000 MG/100 ML IV PRN (00:27)
[2017-11-03 04:00] VITALS: BP 113/66
[2017-11-03] MEDS: PIPERACILLIN/TAZO 2.25 GM 50 ML IV SCH ×3 (05:49→22:47)
[2017-11-03 07:18] LABS: BASOPHILS % 0.5 % (0.0-1.0); EOSINOPHILS # (AUTO) 0.2 (0.0-0.4); EOSINOPHILS % 2.3 % (0.0-6.0); HEMOGLOBIN 10.2 g/dL (14.0-18.0); LYMPHOCYTES # (AUTO) 1.1 (1.0-3.2); LYMPHOCYTES % 14.1 % (18.0-39.1); MEAN CORPUSCULAR HGB CONC 32.9 g/dL (31-35); MEAN CORPUSCULAR VOLUME 100.3 fL (81-99); MONOCYTES # (AUTO) 1.3 (0.2-0.8); MONOCYTES % 16.6 % (4.4-11.3); NEUTROPHILS # (AUTO) 5.1 (2.1-6.9); NEUTROPHILS % 65.6 % (38.7-80.0); PLATELET COUNT 136 x10e3/uL (140-360); RED BLOOD COUNT 3.09 x10e6/uL (4.3-5.7); RED CELL DISTRIBUTION WIDTH 15.5 % (11.7-14.4)
[2017-11-03 08:00] VITALS: BP 139/61
[2017-11-03] MEDS: INSULIN REGULAR, HUMAN 100 UNIT/1 ML 3ML VIAL SQ SCH ×4 (08:00→21:35)
[2017-11-03] MEDS: LEVOTHYROXINE SODIUM 75 MCG TAB PO SCH (08:30)
[2017-11-03] MEDS: CLOPIDOGREL BISULFATE 75 MG TAB PO SCH (09:25)
[2017-11-03] MEDS: PANTOPRAZOLE SOD 40 MG TABEC PO SCH (09:25)
[2017-11-03] MEDS: DIGOXIN 0.125 MG TAB PO SCH (09:25)
[2017-11-03] MEDS: INSULIN DETEMIR 100 UNIT/ML PEN SQ SCH (09:25)
[2017-11-03] MEDS: METOPROLOL SUCCINATE 50 MG TAB XL PO SCH (09:25)
[2017-11-03] MEDS: ASPIRIN 81 MG ENTERIC COATED PO SCH (09:25)
[2017-11-03] MEDS: AMLODIPINE BESYLATE 10 MG TAB PO SCH (09:25)
[2017-11-03] MEDS: METOLAZONE 5 MG TAB PO SCH (09:25)
[2017-11-03] MEDS: SODIUM CHLORIDE 0.9% 1000ML 1,000 ML IV SCH ×2 (09:26→22:50)
[2017-11-03] MEDS: VANCOMYCIN 1GM/NS 250 ML 250 ML IV SCH (09:26)
[2017-11-03 10:08] VITALS: BP 139/61
[2017-11-03 12:00] VITALS: BP 125/53
--- NOTE | 2017-11-03 12:21 | Progress Note ---
DATE: November 03, 2017 CARDIOLOGY PROGRESS NOTE SUBJECTIVE: Patient denies chest pain or shortness of breath. He reports his foot feels better. OBJECTIVE VITAL SIGNS: Temperature 97 degrees, pulse 66, respiratory rate 18, blood pressure 139/61, oxygen saturation 99% on room air. GENERAL: Awake, alert, no acute distress. LUNGS: Clear to auscultation bilaterally. No wheezes or crackles. CARDIOVASCULAR: Normal rate, regular rhythm. No murmur. Normal S1 and S2. ABDOMEN: Soft, nontender. EXTREMITIES: No edema. Left foot with dressing in place. CARDIAC MEDICATIONS 1. Metoprolol succinate 25 mg p.o. daily. 2. Metolazone 2.5 mg p.o. daily. 3. Digoxin 0.125 mg p.o. daily. 4. Plavix 75 mg p.o. daily. 5. Aspirin 81 mg p.o. daily. 6. Amlodipine 10 mg p.o. daily. 7. Levothyroxine 75 mcg p.o. daily. LABS: WBC 7.82, hemoglobin 10.2, hematocrit 31, platelets 136. TELEMETRY: V-paced. IMPRESSION 1. Left foot osteomyelitis status post 2nd digit amputation. 2. Chronic systolic heart failure status post automatic implantable cardioverter-defibrillator. 3. Coronary artery disease status post stents and 3-vessel coronary artery bypass graft. 4. History of aortic valve replacement. 5. Atrial fibrillation. 6. Hypertension. 7. Hyperlipidemia. 8. Diabetes mellitus. 9. History of cerebrovascular accident. 10. Chronic kidney disease. RECOMMENDATIONS: Patient refused peripheral angiogram. He understands that he is at risk for worsening infection and limb loss and does not wish to proceed. IV antibiotics per primary service. Wound care per Podiatry. Repeat INR as it was supratherapeutic yesterday. Patient's troponin is not consistent with myocardial infarction, likely secondary to systolic heart failure and poor clearance in the setting of chronic kidney disease. As patient is asymptomatic, no further cardiac evaluation is indicated at this time. Thank you for this consult. We will continue to follow. Job#: [id number] KAT
[2017-11-03 16:00] VITALS: BP 132/57
[2017-11-03 17:39] LABS: INR 3.12; PROTHROMBIN TIME 30.2 seconds (11.9-14.5)
[2017-11-03] MEDS ORDERED: SENNA-S TABLET PO ONE (21:30)
[2017-11-03] MEDS ORDERED: MAGNESIUM HYDROXIDE 30 ML UDC PO PRN (21:30)
[2017-11-03] MEDS ORDERED: BISACODYL 10 MG SUPP PR PRN (21:30)
--- NOTE | 2017-11-04 01:28 | Consultation ---
DATE OF CONSULTATION: November 03, 2017 REASON FOR CONSULTATION: Osteomyelitis infection of the foot. HISTORY OF PRESENT ILLNESS: This is a very pleasant 67-year-old gentleman, who has history of coronary artery disease, atherosclerotic disease, status post stent placement for 3-vessel CABG, chronic systolic congestive heart failure, status post AICD. History of aortic valve replacement, atrial fibrillation, hypertension, hyperlipidemia, diabetes mellitus, chronic kidney disease, history of CVA. He has been having this left foot problem for a few months. He has been seeing a podiatry as outpatient. He took some oral antibiotic on and off. He had this for more than 6 months. For his foot care, he saw Dr. Valenzuela. He sent him to the emergency room, where he was admitted on October 31, 2017. I was asked to see him today on November 03. Patient was seen and examined, chart reviewed. PAST MEDICAL HISTORY: Coronary artery disease, atherosclerotic disease, aortic valve replacement, congestive heart failure, AICD placement, atrial fibrillation, hypertension, hyperlipidemia, diabetes mellitus, CVA, chronic kidney disease. PAST SURGICAL HISTORY: CABG, right foot surgery, aortic valve replacement. SOCIAL HISTORY: There is no smoking, drug abuse, alcohol abuse. FAMILY HISTORY: Hypertension. REVIEW OF SYSTEMS HEENT: There is no headache visual change hearing changes. GI: There was no nausea, no vomiting no diarrhea. CARDIAC: No arrhythmia. NEURO: No seizure activity. SKIN: There are no rashes. LABORATORY DATA: Reviewed. Blood cultures are negative. His white count 7.8, hemoglobin 10.2, hematocrit 31. Sodium of 138, potassium 3.8, creatinine 1.64, bilirubin 1.9. BNP is 13,230. Patient had arterial Doppler still pending. Had an x-ray of the foot, which showed 2nd left toe osteomyelitis. PHYSICAL EXAMINATION GENERAL: He is currently, alert, oriented, does not seem to be in acute distress. VITALS: Stable. Afebrile. HEENT: Normocephalic. Nonicteric. NECK: Supple. CHEST: Clear, coarse. ABDOMEN: Soft. Bowel sounds present. EXTREMITIES: Edema of the foot. There is erythema. There is edema noted. IMPRESSIONS 1. Left foot osteomyelitis, status post left 2nd digit amputation. 2. Diabetes mellitus, type 2. 3. Peripheral neuropathy. 4. Peripheral vascular disease. 5. Chronic kidney disease. Discussed with the patient. I think I will treat him at least 2 weeks with intravenous antibiotic. Agree with Zosyn and vancomycin for now adjust for kidney function. Will get a sed rate, C-reactive protein. Continue with wound care. Will follow with you. Further recommendations to follow. Job#: [id number] CQ
[2017-11-04] MEDS: PIPERACILLIN/TAZO 2.25 GM 50 ML IV SCH (05:48)
[2017-11-04] MEDS: INSULIN REGULAR, HUMAN 100 UNIT/1 ML 3ML VIAL SQ SCH (07:30)
[2017-11-04] MEDS: LEVOTHYROXINE SODIUM 75 MCG TAB PO SCH (07:30)
[2017-11-04 07:52] VITALS: BP 132/57
[2017-11-04 08:10] VITALS: BP 136/64
[2017-11-04] MEDS: AMLODIPINE BESYLATE 10 MG TAB PO SCH (09:00)
[2017-11-04] MEDS: METOLAZONE 5 MG TAB PO SCH (09:00)
[2017-11-04] MEDS ORDERED: SENNA-S TABLET PO SCH (09:00)
[2017-11-04] MEDS: CLOPIDOGREL BISULFATE 75 MG TAB PO SCH (09:00)
[2017-11-04] MEDS: DIGOXIN 0.125 MG TAB PO SCH (09:00)
[2017-11-04] MEDS: METOPROLOL SUCCINATE 50 MG TAB XL PO SCH (09:00)
[2017-11-04] MEDS: PANTOPRAZOLE SOD 40 MG TABEC PO SCH (09:00)
[2017-11-04] MEDS: ASPIRIN 81 MG ENTERIC COATED PO SCH (09:00)
[2017-11-04] MEDS: INSULIN DETEMIR 100 UNIT/ML PEN SQ SCH (09:00)
[2017-11-04] MEDS ORDERED: DOXYCYCLINE HY100 MG PO (09:39)
[2017-11-04] MEDS ORDERED: VANCOMYCIN 1GM/NS 250 ML 250 ML IV SCH (22:30)
--- NOTE | 2017-11-28 09:54 | Operative Report ---
DATE OF PROCEDURE: November 01, 2017 PREOPERATIVE DIAGNOSIS: Left 2nd digit osteomyelitis. POSTOPERATIVE DIAGNOSIS: Left 2nd digit osteomyelitis. PLANNED PROCEDURE: Left 2nd digit amputation. SURGEON: Ten Valenzuela DPM SIZE STAMPER: Elmer Johnson DPM ANESTHESIA: IV sedation with a local ankle block. ESTIMATED BLOOD LOSS: 20 mL. MATERIALS: 3-0 Vicryl and 3-0 nylon. PATHOLOGY: Left 2nd digit bone sent for gross specimen. PROCEDURE NOTE: Patient was seen in the preoperative waiting room where the correct procedure and site were identified. The patient was brought into the operating room and placed on the operating table in supine position. IV sedation was initiated at this time followed by anesthesia to the surgical site with an ankle block with 0.5% Marcaine plain. The left foot, ankle, and leg were then scrubbed, prepped and draped in the usual aseptic manner and an Esmarch tourniquet was applied for approximately 15 minutes to the patient's left foot. Attention was directed to the distal aspect of the patient's left 2nd digit where a deep ulceration is noted with bone exposed and purulent drainage. The decision was made to proceed with an amputation at the level of the metatarsophalangeal joint. Utilizing 2 large converging semi-elliptical incisions at the 2nd metatarsophalangeal joint of the left foot, the case was started. The incision was carried down to the level of the 2nd metatarsophalangeal joint, which was easily identified. Utilizing a #15 blade, the 2nd digit was disarticulated and passed off to the back table. Next, the wound was debrided of all necrotic and devitalized tissue and all wound edges were prepped for closure. The wound was then flushed with copious amounts of sterile saline mixed with bacitracin. Two deep sutures were placed with 3-0 Vicryl to avoid hematoma formation and the skin was reapproximated utilizing simple interrupted sutures of 3-0 nylon. The wound was then dressed with Betadine-soaked Adaptic, 4 x 4's, ABD pad, Kerlix, Vance wrap with compression. Patient tolerated the procedure and anesthesia well. Patient was then transferred to the postoperative recovery room with vital signs stable and vascular status intact. Patient was monitored there for a short period time before being readmitted to the floor for postoperative monitoring, pain, control, and IV antibiotics. The podiatry service will continue to monitor as an inpatient. Dictated By: Elmer Johnson DPM Job#: [id number] JUANCHO
== END 2017-11-04 10:06 | disposition home or self-care (01) | DRG 617 ==
LOC: ER 10:07 → ERHOLD 10:33 → MED/SURG2 18:23
PROVIDERS: ADMIT Internal Medicine; ATTEND Internal Medicine
PROC: 0Y6S0Z0 Detachment at Left 2nd Toe, Complete, Open Approach (ICD-10-PCS; principal; 2017-11-01 07:48)
DX: E11.69 Type 2 diabetes mellitus with other specified complication (principal); L03.116 Cellulitis of left lower limb; I13.0 Hypertensive heart and chronic kidney disease with heart failure and stage 1 through stage 4 chronic kidney disease, or unspecified chronic kidney disease; I50.22 Chronic systolic (congestive) heart failure; M86.9 Osteomyelitis, unspecified; E11.22 Type 2 diabetes mellitus with diabetic chronic kidney disease; E11.51 Type 2 diabetes mellitus with diabetic peripheral angiopathy without gangrene; I25.10 Atherosclerotic heart disease of native coronary artery without angina pectoris; I48.91 Unspecified atrial fibrillation; N18.3 Chronic kidney disease, stage 3 (moderate); Z53.29 Procedure and treatment not carried out because of patient's decision for other reasons; Z79.4 Long term (current) use of insulin; Z86.73 Personal history of transient ischemic attack (TIA), and cerebral infarction without residual deficits; Z79.01 Long term (current) use of anticoagulants; Z95.2 Presence of prosthetic heart valve; Z95.1 Presence of aortocoronary bypass graft; E78.5 Hyperlipidemia, unspecified
CPT/HCPCS: 36415; 71045; 80053; 80202; 81001; 82550; 82553; 82948; 83605; 83735; 83880; 84484; 85025; 85610; 85730; 86140; 87040; 87086; 88305; 88311; 93005; 93306; 93925; 99284; J2001; J2250; J2270; J2405; J2543; J3370; J3430; J7030; J7050

== ENCOUNTER → 2018-03-09 | Outpatient (CLI) | payer MEDICARE ==
[~2018-03-09] MED LIST changes: +DIGOXIN125 MCG PO; +DOXYCYCLINE HY100 MG PO; +HUMALOG100 UNIT/1 SC; +LANTUS 3ML100 UNITS/ SC; +LEVOTHYROXINE75 MCG PO; +LEVOTHYROXINE88 MCG PO; +METOLAZONE5 MG PO; +NITROGLYCERIN0.4 MG SL; +VICTOZA 2-0.6 MG/0.1 SQ
--- NOTE | 2018-03-09 16:53 | Diagnostic Imaging Report ---
PROCEDURE:FOOT COMPLETE BILATERAL INDICATION:Bilateral foot pain COMPARISON:Patients [facility], DX, FOOT RIGHT COMPLETE, 06/25/2013, 8:33. [facility], DX, FOOT LEFT COMPLETE, 10/31/2017, 11:36. FINDINGS: Right: Decreased mineralization. No acute displaced fracture or dislocation. Status post amputation of the second toe at the level of the distal metatarsal bone. No definite areas of cortical erosion or destruction. Mild degenerative changes in the first toe metatarsophalangeal joint. No lytic or blastic lesion. Vascular calcifications. Soft tissues are grossly unremarkable. Left: Decreased mineralization. No acute displaced fracture or dislocation. Status post amputation of the second toe at the metatarsophalangeal level. Cortical surfaces are intact, without erosion or destruction. Mild degenerative changes in the first metatarsophalangeal joint. Vascular calcifications. No significant soft tissue swelling. CONCLUSION: 1. Decreased mineralization. No acute displaced fracture or dislocation. 2. Mild degenerative changes in the first toe metatarsophalangeal joint bilaterally. 3. Bilateral vascular calcifications. 4. Bilateral second toe amputation. Rohan Thibodeaux M.D. Dictated by: Rohan Thibodeaux M.D. on 03/09/2018 at 16:58 Electronically approved by: Rohan Thibodeaux M.D. on 03/09/2018 at 16:58
== END ==
LOC: RAD 09:36
PROVIDERS: ATTEND Internal Medicine
DX: M79.672 Pain in left foot (principal); M79.671 Pain in right foot